=== PATIENT | male | born 1965 | race Caucasian/White ===

== ENCOUNTER 2016-11-07 14:42 | Emergency (ER) | payer OTHER ==
[~2016-11-07] VITALS: Ht 172.7 cm; Wt 55.3 kg
[~2016-11-07 14:42] MED LIST: ASPIRIN325 M2 PO; ASPIRIN325 MG PO; ATARAX25 MG PO; ATENOLOL25 MG PO; ATIVAN1 MG PO; COREG3.125 MG PO; COREG6.25 MG PO; FOLIC ACID1 MG PO; KENALOG0.51 TP; LACTULOSE10 GM/151 PO; LISINOPRIL40 MG PO; LOMOTIL 0.025 M1 TA1 PO; LOPRESSOR50 MG PO; LORAZEPAM0.5 MG PO; Lotrimin 1%15 GM T; MULTI-DAY VITA1 EACH PO; PYRIDOXINE HCL100 MG PO; THERA TABS1 TAB PO; THERA1 TAB PO; VITAMIN B-11 TAB PO; VITAMIN B-650 M1 PO; ZOFRAN ODT4 MG SL
[2016-11-07 15:19] LABS: BILIRUBIN 1+ (NEGATIVE); BLOOD NEGATIVE (NEGATIVE); CLARITY SL CLOUDY (CLEAR); COLOR YELLOW (YELLOW); GLUCOSE NEGATIVE (NEGATIVE); KETONE TRACE (NEGATIVE); LEUKO ESTERASE NEGATIVE (NEGATIVE); NITRITE NEGATIVE (NEGATIVE); PROTEIN 1+ (NEGATIVE); SPECIFIC GRAVITY >= 1.030 (1.005-1.030)
[2016-11-07 15:21] LABS: BASO % 0.1 % (0.0-1.0); HEMATOCRIT 37.1 % (42.0-52.0); HEMOGLOBIN 11.3 g/dl (14.0-18.0); IG # 0.1 10*3/uL (0.0-0.1); LYMPH % 5.2 % (27.0-41.0); MEAN CELL VOLUME 101.9 fl (80.0-94.0); MEAN CORPUSCULAR HGB CONC 30.5 g/dl (33.0-37.0); MEAN PLATELET VOLUME 10.2 fl (9.6-12.3); MONO % 5.1 % (3.0-9.0); NEUT % 89.3 % (47.0-73.0); PLATELET COUNT AUTOMATED 172 10*3/uL (130-400); RED BLOOD COUNT 3.64 10*6/uL (4.50-5.90); RED CELL DISTRI WIDTH 14.2 % (0-14.5)
[2016-11-07 15:30] LABS: PROTHROMBIN TIME 10.2 SECONDS (9.0-12.4)
[2016-11-07 15:44] LABS: BACTERIA 2+; HYALINE CAST 15-20; URINE REFLEX COMMENT YES (NO)
[2016-11-07 15:46] LABS: ALBUMIN 3.2 gm/dl (3.1-4.5); ALKALINE PHOSPHATASE 99 U/L (45-117); BILIRUBIN, DIRECT 0.2 mg/dL (0.0-0.2); BILIRUBIN, TOTAL 0.6 mg/dl (0.2-1.0); BUN 8 mg/dl (7-24); CARBON DIOXIDE 13 mmol/L (21-32); CHLORIDE 102 mmol/L (98-107); CPK 508 U/L (39-308); EST GLOM FILT AFRICAN AMERICAN 42 ml/min; GLUCOSE 147 mg/dL (65-99); POTASSIUM 4.4 mmol/L (3.5-5.1); SGOT/AST 121 IU/L (3-35); SGPT/ALT 54 U/L (12-78); SODIUM 145 mmol/L (136-145); TOTAL PROTEIN 6.9 gm/dL (6.4-8.2)
[2016-11-07 15:48] LABS: TROPONIN I < 0.015 ng/ml (<0.045)
[2016-11-07 17:18] LABS: LA>2 REFLEX 2 HR DRAW NOW
== END 2016-11-07 16:00 | disposition short-term general hospital (02) ==
LOC: ED 14:42
PROVIDERS: Emergency Medicine
DX: S72.001A Fracture of unspecified part of neck of right femur, initial encounter for closed fracture (principal); T79.6XXA Traumatic ischemia of muscle, initial encounter; F10.10 Alcohol abuse, uncomplicated; D64.9 Anemia, unspecified; E86.0 Dehydration; E87.2 Acidosis; R00.0 Tachycardia, unspecified; N17.9 Acute kidney failure, unspecified; F17.200 Nicotine dependence, unspecified, uncomplicated; I48.91 Unspecified atrial fibrillation; I10 Essential (primary) hypertension; J44.9 Chronic obstructive pulmonary disease, unspecified; Z79.82 Long term (current) use of aspirin; W18.30XA Fall on same level, unspecified, initial encounter; Y93.89 Activity, other specified; Y92.009 Unspecified place in unspecified non-institutional (private) residence as the place of occurrence of the external cause; Y99.9 Unspecified external cause status

== ENCOUNTER 2017-05-08 14:58 | Emergency (ER) | payer OTHER ==
[2017-05-08 15:23] LABS: BASO % 0.1 % (0.0-1.0); HEMATOCRIT 40.2 % (42.0-52.0); HEMOGLOBIN 13.5 g/dl (14.0-18.0); LYMPH # 1.1 10*3/uL (1.3-4.4); LYMPH % 13.9 % (27.0-41.0); MEAN CELL VOLUME 91.8 fl (80.0-94.0); MEAN CORPUSCULAR HGB 30.8 pg (27.0-31.0); MEAN CORPUSCULAR HGB CONC 33.6 g/dl (33.0-37.0); MEAN PLATELET VOLUME 10.4 fl (9.6-12.3); MONO # 0.5 10*3/uL (0.1-1.0); MONO % 6.7 % (3.0-9.0); NEUT # 6.1 10*3/uL (2.3-7.9); PLATELET COUNT AUTOMATED 153 10*3/uL (130-400); RED BLOOD COUNT 4.38 10*6/uL (4.50-5.90); RED CELL DISTRI WIDTH 13.2 % (0-14.5); WHITE BLOOD COUNT 7.7 10*3/uL (4.8-10.8)
[2017-05-08 15:43] LABS: ALBUMIN 3.4 gm/dl (3.1-4.5); ALKALINE PHOSPHATASE 123 U/L (45-117); BUN 6 mg/dl (7-24); CHLORIDE 101 mmol/L (98-107); CREATININE 0.69 mg/dL (0.70-1.30); LIPASE 165 U/L (73-393); POTASSIUM 3.7 mmol/L (3.5-5.1); SGOT/AST 45 IU/L (3-35); SGPT/ALT 33 U/L (12-78); SODIUM 138 mmol/L (136-145); TOTAL PROTEIN 7.3 gm/dL (6.4-8.2)
[2017-05-08 15:45] LABS: ETHYL ALCOHOL < 3.0 mg/dl (<3)
[2017-05-08] MEDS ORDERED: ZOFRAN4 MG PO (16:22)
== END 2017-05-08 16:40 | disposition home or self-care (01) ==
LOC: ED 14:58
PROVIDERS: Nurse Practitioner Family
DX: K52.9 Noninfective gastroenteritis and colitis, unspecified (principal); R03.0 Elevated blood-pressure reading, without diagnosis of hypertension

== ENCOUNTER → 2018-08-04 | Outpatient (CLI) | payer OTHER ==
[~2018-08-04] MED LIST changes: +ANAPROX DS550 MG PO; +ASPIRIN ADULT L81 M2 PO; +B-1100 M1 PO; +CARVEDILOL6.25 MG PO; +CEROVITE ADVAN1 EACH PO; +DULOXETINE HCL30 MG PO; +LORAZEPAM1 MG PO; +MULTIVITAMINS1 EAC6 PO; +NATURE'S BLEND100 M2 PO; +PHARMASSURE VI100 MG PO; +VITAMIN B150 MG PO; +VITAMIN D-32000 UNIT PO; +VITAMIN D5000 UNIT PO; +ZOFRAN4 MG PO
== END | disposition home or self-care (01) ==
DX: S82.142D Displaced bicondylar fracture of left tibia, subsequent encounter for closed fracture with routine healing (principal); X58.XXXD Exposure to other specified factors, subsequent encounter

== ENCOUNTER 2018-10-25 21:11 | Emergency (ER) | payer OTHER ==
[~2018-10-25] VITALS: Ht 172.7 cm; Wt 77.1 kg
[~2018-10-25 21:11] MED LIST changes: -ASPIRIN ADULT L81 M2 PO; -B-1100 M1 PO; -CARVEDILOL6.25 MG PO; -CEROVITE ADVAN1 EACH PO; -DULOXETINE HCL30 MG PO; -LORAZEPAM1 MG PO; -NATURE'S BLEND100 M2 PO; -VITAMIN D5000 UNIT PO
[2019-02-25] MEDS ORDERED: VITAMIN D5000 UNIT PO (19:36)
[2019-02-25] MEDS ORDERED: B-1100 M1 PO (19:36)
[2019-02-25] MEDS ORDERED: CARVEDILOL6.25 MG PO (19:36)
[2019-02-25] MEDS ORDERED: DULOXETINE HCL30 MG PO (19:37)
[2019-02-25] MEDS ORDERED: ASPIRIN ADULT L81 M2 PO (19:37)
[2019-02-25] MEDS ORDERED: CEROVITE ADVAN1 EACH PO (19:37)
[2019-02-25] MEDS ORDERED: NATURE'S BLEND100 M2 PO (19:38)
[2019-02-25] MEDS ORDERED: PHARMASSURE VI100 MG PO (19:41)
[2019-03-03] MEDS ORDERED: LORAZEPAM1 MG PO (11:20)
== END 2018-10-25 22:41 | disposition home or self-care (01) ==
LOC: ED 21:11
DX: S86.911A Strain of unspecified muscle(s) and tendon(s) at lower leg level, right leg, initial encounter (principal); F17.200 Nicotine dependence, unspecified, uncomplicated; Z79.899 Other long term (current) drug therapy; Z79.82 Long term (current) use of aspirin; X50.1XXA Overexertion from prolonged static or awkward postures, initial encounter; Y93.89 Activity, other specified; Y92.89 Other specified places as the place of occurrence of the external cause; Y99.8 Other external cause status

== ENCOUNTER 2019-02-03 22:08 | Emergency (ER) | payer MEDICAID ==
[~2019-02-03] VITALS: Wt 68.0 kg
[2019-02-03 22:50] LABS: BASO % 0.2 % (0.0-1.0); EOS # 0.1 10*3/uL (0.0-0.4); EOS % 1.1 % (1.0-4.0); HEMATOCRIT 38.3 % (42.0-52.0); LYMPH # 2.5 10*3/uL (1.3-4.4); LYMPH % 43.4 % (27.0-41.0); MEAN CELL VOLUME 96.5 fl (80.0-94.0); MEAN CORPUSCULAR HGB 32.7 pg (27.0-31.0); MEAN CORPUSCULAR HGB CONC 33.9 g/dl (33.0-37.0); MEAN PLATELET VOLUME 10.3 fl (9.6-12.3); MONO # 0.7 10*3/uL (0.1-1.0); MONO % 12.9 % (3.0-9.0); NEUT # 2.4 10*3/uL (2.3-7.9); NEUT % 42.2 % (47.0-73.0); PLATELET COUNT AUTOMATED 116 10*3/uL (130-400); RED BLOOD COUNT 3.97 10*6/uL (4.50-5.90); RED CELL DISTRI WIDTH 13.6 % (0-14.5); WHITE BLOOD COUNT 5.7 10*3/uL (4.8-10.8)
[2019-02-03 23:07] LABS: ALKALINE PHOSPHATASE 89 U/L (45-117); BUN 2 mg/dl (7-24); CHLORIDE 106 mmol/L (98-107); POTASSIUM 3.5 mmol/L (3.5-5.1); SGOT/AST 124 IU/L (3-35); SGPT/ALT 58 U/L (12-78); SODIUM 140 mmol/L (136-145); TOTAL PROTEIN 6.4 gm/dL (6.4-8.2)
[2019-02-25] MEDS ORDERED: CARVEDILOL6.25 MG PO (19:36)
[2019-02-25] MEDS ORDERED: VITAMIN D5000 UNIT PO (19:36)
[2019-02-25] MEDS ORDERED: B-1100 M1 PO (19:36)
[2019-02-25] MEDS ORDERED: CEROVITE ADVAN1 EACH PO (19:37)
[2019-02-25] MEDS ORDERED: DULOXETINE HCL30 MG PO (19:37)
[2019-02-25] MEDS ORDERED: ASPIRIN ADULT L81 M2 PO (19:37)
[2019-02-25] MEDS ORDERED: NATURE'S BLEND100 M2 PO (19:38)
[2019-02-25] MEDS ORDERED: PHARMASSURE VI100 MG PO (19:41)
[2019-03-03] MEDS ORDERED: LORAZEPAM1 MG PO (11:20)
== END 2019-02-04 | disposition home or self-care (01) ==
LOC: ED 22:08
PROVIDERS: Student in an Organized Health Care Education/Training Program
DX: R41.3 Other amnesia (principal); I48.91 Unspecified atrial fibrillation; J44.9 Chronic obstructive pulmonary disease, unspecified; I10 Essential (primary) hypertension; E78.1 Pure hyperglyceridemia; F17.200 Nicotine dependence, unspecified, uncomplicated; Z79.82 Long term (current) use of aspirin; Z79.899 Other long term (current) drug therapy

== ENCOUNTER 2019-04-10 12:22 | Inpatient (IN) | payer MEDICAID ==
[~2019-04-10] VITALS: Ht 177.8 cm; Wt 55.8 kg
[~2019-04-10 12:22] MED LIST changes: +ASPIRIN ADULT L81 M2 PO; +B-1100 M1 PO; +CARVEDILOL6.25 MG PO; +CEROVITE ADVAN1 EACH PO; +DULOXETINE HCL30 MG PO; +LORAZEPAM1 MG PO; +NATURE'S BLEND100 M2 PO; +VITAMIN D5000 UNIT PO
[2019-04-10 12:23] VITALS: BP 143/91
[2019-04-10 13:02] LABS: BASO % 0.2 % (0.0-1.0); EOS # 0.1 10*3/uL (0.0-0.4); EOS % 0.8 % (1.0-4.0); HEMATOCRIT 43.5 % (42.0-52.0); HEMOGLOBIN 14.7 g/dl (14.0-18.0); LYMPH # 1.3 10*3/uL (1.3-4.4); LYMPH % 19.4 % (27.0-41.0); MEAN CELL VOLUME 93.8 fl (80.0-94.0); MEAN CORPUSCULAR HGB 31.7 pg (27.0-31.0); MEAN CORPUSCULAR HGB CONC 33.8 g/dl (33.0-37.0); MEAN PLATELET VOLUME 11.7 fl (9.6-12.3); MONO # 0.7 10*3/uL (0.1-1.0); MONO % 11.3 % (3.0-9.0); NEUT # 4.4 10*3/uL (2.3-7.9); PLATELET COUNT AUTOMATED 96 10*3/uL (130-400); RED BLOOD COUNT 4.64 10*6/uL (4.50-5.90); RED CELL DISTRI WIDTH 13.4 % (0-14.5); WHITE BLOOD COUNT 6.5 10*3/uL (4.8-10.8)
[2019-04-10 13:18] LABS: ALBUMIN 3.3 gm/dl (3.1-4.5); ALKALINE PHOSPHATASE 96 U/L (45-117); BUN 2 mg/dl (7-24); CHLORIDE 93 mmol/L (98-107); CREATININE 0.58 mg/dL (0.70-1.30); POTASSIUM 2.7 mmol/L (3.5-5.1); SGOT/AST 507 IU/L (3-35); SODIUM 134 mmol/L (136-145); TOTAL PROTEIN 7.2 gm/dL (6.4-8.2)
[2019-04-10 13:21] LABS: SGPT/ALT 324 U/L (12-78)
[2019-04-10 13:23] LABS: TROPONIN I < 0.015 ng/ml (<0.045)
[2019-04-10 14:05] LABS: BILIRUBIN NEGATIVE (NEGATIVE); BLOOD NEGATIVE (NEGATIVE); CLARITY CLEAR (CLEAR); COLOR YELLOW (YELLOW); GLUCOSE NEGATIVE (NEGATIVE); KETONE NEGATIVE (NEGATIVE); LEUKO ESTERASE TRACE (NEGATIVE); NITRITE NEGATIVE (NEGATIVE); SPECIFIC GRAVITY <= 1.005 (1.005-1.030); UROBILINOGEN 0.2 E.U./dl (0.2-1.0)
[2019-04-10 14:13] LABS: BACTERIA TRACE; EPITHELIAL CELLS 0-2; RBC 0-2 rbc/hpf (0-2)
[2019-04-10 14:39] LABS: URINE AMPHETAMINES < 1000 (1000ng/ml); URINE BARBITURATES < 200 (200ng/ml); URINE BENZODIAZEPINES < 200 (200ng/ml); URINE CANNABINOIDS (THC) < 50 (50ng/ml); URINE COCAINE < 300 (300ng/ml); URINE METHADONE < 300 (300ng/ml); URINE OPIATES < 300 (300ng/ml)
[2019-04-10 14:40] LABS: URINE PHENCYCLIDINE < 25 (25ng/ml)
[2019-04-10 14:49] LABS: ACT PARTIAL THROMBO TIME 23.5 SECONDS (20.0-32.1); INTERNATIONAL NORM RATIO 0.9 (2.0-3.5)
[2019-04-10 20:00] VITALS: BP 120/68
[2019-04-11 00:41] VITALS: BP 127/64
[2019-04-11 06:23] LABS: BASO % 0.4 % (0.0-1.0); EOS # 0.1 10*3/uL (0.0-0.4); EOS % 1.8 % (1.0-4.0); HEMATOCRIT 35.3 % (42.0-52.0); HEMOGLOBIN 11.5 g/dl (14.0-18.0); LYMPH # 1.4 10*3/uL (1.3-4.4); LYMPH % 26.2 % (27.0-41.0); MEAN CORPUSCULAR HGB 31.9 pg (27.0-31.0); MEAN CORPUSCULAR HGB CONC 32.6 g/dl (33.0-37.0); MEAN PLATELET VOLUME 11.9 fl (9.6-12.3); MONO # 0.9 10*3/uL (0.1-1.0); MONO % 15.6 % (3.0-9.0); NEUT # 3.1 10*3/uL (2.3-7.9); NEUT % 55.6 % (47.0-73.0); PLATELET COUNT AUTOMATED 79 10*3/uL (130-400); RED CELL DISTRI WIDTH 13.8 % (0-14.5); WHITE BLOOD COUNT 5.5 10*3/uL (4.8-10.8)
[2019-04-11 06:32] LABS: ALBUMIN 2.5 gm/dl (3.1-4.5); ALKALINE PHOSPHATASE 74 U/L (45-117); BUN 3 mg/dl (7-24); CHLORIDE 106 mmol/L (98-107); POTASSIUM 2.9 mmol/L (3.5-5.1); SGOT/AST 254 IU/L (3-35); SGPT/ALT 215 U/L (12-78); SODIUM 138 mmol/L (136-145); TOTAL PROTEIN 5.5 gm/dL (6.4-8.2)
[2019-04-11 06:41] LABS: MEAN CELL VOLUME 98.1 fl (80.0-94.0)
[2019-04-11 08:00] VITALS: BP 130/72
[2019-04-11 09:08] LABS: HEPATITIS B SURFACE AG Negative (Negative); HEPATITIS C VIRUS ANTIBODY <0.1 s/co (0.0-0.9)
[2019-04-11] MEDS ORDERED: K-TAB20 MEQ PO (09:19)
[2019-04-11 12:00] VITALS: BP 128/60
== END 2019-04-11 12:30 | disposition home or self-care (01) | DRG 433 ==
LOC: ED 12:22 → 5E 14:06 → EDHOLD 14:06 → 5E 14:29
PROVIDERS: Emergency Medicine; Family Medicine; ADMIT Family Medicine
DX: K70.10 Alcoholic hepatitis without ascites (principal); E87.1 Hypo-osmolality and hyponatremia; E87.6 Hypokalemia; E83.41 Hypermagnesemia; E86.0 Dehydration; I15.2 Hypertension secondary to endocrine disorders; I48.91 Unspecified atrial fibrillation; J44.9 Chronic obstructive pulmonary disease, unspecified; E78.1 Pure hyperglyceridemia; N20.0 Calculus of kidney; F10.10 Alcohol abuse, uncomplicated; R73.9 Hyperglycemia, unspecified; F17.210 Nicotine dependence, cigarettes, uncomplicated; K76.0 Fatty (change of) liver, not elsewhere classified; D69.6 Thrombocytopenia, unspecified; F41.9 Anxiety disorder, unspecified; Z71.6 Tobacco abuse counseling; Z82.0 Family history of epilepsy and other diseases of the nervous system; Z82.49 Family history of ischemic heart disease and other diseases of the circulatory system; Z79.82 Long term (current) use of aspirin; Z79.899 Other long term (current) drug therapy

== ENCOUNTER 2019-05-22 20:24 | Inpatient (IN) | payer OTHER ==
[~2019-05-22] VITALS: Ht 177.8 cm; Wt 53.6 kg
[~2019-05-22 20:24] MED LIST changes: +K-TAB20 MEQ PO
[2019-05-22 20:26] VITALS: BP 141/95
[2019-05-22 21:15] LABS: BASO % 0.4 % (0.0-1.0); EOS # 0.1 10*3/uL (0.0-0.4); EOS % 2.3 % (1.0-4.0); HEMATOCRIT 42.3 % (42.0-52.0); HEMOGLOBIN 14.1 g/dl (14.0-18.0); LYMPH # 0.6 10*3/uL (1.3-4.4); LYMPH % 12.3 % (27.0-41.0); MEAN CELL VOLUME 95.3 fl (80.0-94.0); MEAN CORPUSCULAR HGB 31.8 pg (27.0-31.0); MEAN CORPUSCULAR HGB CONC 33.3 g/dl (33.0-37.0); MEAN PLATELET VOLUME 10.8 fl (9.6-12.3); MONO # 0.5 10*3/uL (0.1-1.0); MONO % 10.3 % (3.0-9.0); NEUT # 3.6 10*3/uL (2.3-7.9); NEUT % 74.5 % (47.0-73.0); PLATELET COUNT AUTOMATED 67 10*3/uL (130-400); RED BLOOD COUNT 4.44 10*6/uL (4.50-5.90); RED CELL DISTRI WIDTH 14.3 % (0-14.5); WHITE BLOOD COUNT 4.9 10*3/uL (4.8-10.8)
[2019-05-22 21:25] LABS: INTERNATIONAL NORM RATIO 0.9 (2.0-3.5)
[2019-05-22 21:29] LABS: ALBUMIN 3.1 gm/dl (3.1-4.5); ALKALINE PHOSPHATASE 98 U/L (45-117); BUN 3 mg/dl (7-24); CHLORIDE 100 mmol/L (98-107); CREATININE 0.63 mg/dL (0.70-1.30); LIPASE 159 U/L (73-393); POTASSIUM 3.4 mmol/L (3.5-5.1); SGOT/AST 234 IU/L (3-35); SGPT/ALT 89 U/L (12-78); SODIUM 138 mmol/L (136-145); TOTAL PROTEIN 6.8 gm/dL (6.4-8.2)
[2019-05-22 21:31] LABS: TROPONIN I < 0.015 ng/ml (<0.045)
[2019-05-22 23:51] LABS: BILIRUBIN NEGATIVE (NEGATIVE); BLOOD NEGATIVE (NEGATIVE); CLARITY CLEAR (CLEAR); COLOR YELLOW (YELLOW); GLUCOSE NEGATIVE (NEGATIVE); KETONE 2+ (NEGATIVE); LEUKO ESTERASE NEGATIVE (NEGATIVE); NITRITE NEGATIVE (NEGATIVE); PH 8.5 (5.0-9.0)
[2019-05-22 23:58] LABS: RBC 0-2 rbc/hpf (0-2); WBC 0-2 wbc/hpf (0-5)
[2019-05-23 00:02] VITALS: BP 132/70
[2019-05-23 00:45] VITALS: BP 162/80
[2019-05-23 08:00] VITALS: BP 130/70
[2019-05-23] MEDS ORDERED: SM NATURAL BAL100 MG PO (10:15)
[2019-05-23 12:00] VITALS: BP 127/70
[2019-05-23 16:00] VITALS: BP 121/68
[2019-05-23 20:00] VITALS: BP 132/70
[2019-05-24] VITALS: BP 138/75
[2019-05-24 06:11] LABS: ALBUMIN 2.5 gm/dl (3.1-4.5); ALKALINE PHOSPHATASE 73 U/L (45-117); BUN 2 mg/dl (7-24); CHLORIDE 104 mmol/L (98-107); CREATININE 0.53 mg/dL (0.70-1.30); POTASSIUM 2.9 mmol/L (3.5-5.1); SGOT/AST 107 IU/L (3-35); SGPT/ALT 58 U/L (12-78); SODIUM 136 mmol/L (136-145); TOTAL PROTEIN 5.5 gm/dL (6.4-8.2)
[2019-05-24 06:29] LABS: BASO % 0.2 % (0.0-1.0); EOS # 0.1 10*3/uL (0.0-0.4); EOS % 1.1 % (1.0-4.0); HEMATOCRIT 38.3 % (42.0-52.0); HEMOGLOBIN 12.6 g/dl (14.0-18.0); LYMPH # 1.5 10*3/uL (1.3-4.4); LYMPH % 26.4 % (27.0-41.0); MEAN CELL VOLUME 97.2 fl (80.0-94.0); MEAN CORPUSCULAR HGB CONC 32.9 g/dl (33.0-37.0); MEAN PLATELET VOLUME 12.6 fl (9.6-12.3); MONO # 0.7 10*3/uL (0.1-1.0); MONO % 11.6 % (3.0-9.0); NEUT # 3.4 10*3/uL (2.3-7.9); NEUT % 60.5 % (47.0-73.0); PLATELET COUNT AUTOMATED 56 10*3/uL (130-400); RED BLOOD COUNT 3.94 10*6/uL (4.50-5.90); RED CELL DISTRI WIDTH 14.2 % (0-14.5); WHITE BLOOD COUNT 5.6 10*3/uL (4.8-10.8)
[2019-05-24 07:59] VITALS: BP 116/70
[2019-05-24 08:00] VITALS: BP 128/78
[2019-05-24 16:00] VITALS: BP 129/84
[2019-05-24 20:00] VITALS: BP 118/85
[2019-05-25] VITALS: BP 119/67
[2019-05-25 08:00] VITALS: BP 128/72; BP 130/78
[2019-05-25 08:23] LABS: ALBUMIN 2.5 gm/dl (3.1-4.5); CHLORIDE 104 mmol/L (98-107); POTASSIUM 3.1 mmol/L (3.5-5.1); SODIUM 136 mmol/L (136-145)
[2019-05-25 08:27] LABS: ALKALINE PHOSPHATASE 80 U/L (45-117); CREATININE 0.44 mg/dL (0.70-1.30); PHOSPHOROUS 2.8 mg/dL (2.5-4.9); SGOT/AST 90 IU/L (3-35); SGPT/ALT 59 U/L (12-78); TOTAL PROTEIN 5.7 gm/dL (6.4-8.2)
[2019-05-25 08:30] LABS: BUN < 1 mg/dl (7-24)
[2019-05-25] MEDS ORDERED: CIPRO500 MG PO (11:29)
[2019-05-25] MEDS ORDERED: FLAGYL500 MG PO (11:29)
== END 2019-05-25 12:10 | disposition home health service (06) | DRG 720 ==
LOC: ED 20:24 → 4E 23:53 → EDHOLD 23:53 → 4E 05-23 00:03
PROVIDERS: Internal Medicine; Physician Assistant; Student in an Organized Health Care Education/Training Program; ADMIT Internal Medicine
DX: A41.9 Sepsis, unspecified organism (principal); F17.210 Nicotine dependence, cigarettes, uncomplicated; R00.0 Tachycardia, unspecified; D75.89 Other specified diseases of blood and blood-forming organs; E87.6 Hypokalemia; K52.9 Noninfective gastroenteritis and colitis, unspecified; E44.0 Moderate protein-calorie malnutrition; N30.90 Cystitis, unspecified without hematuria; J41.0 Simple chronic bronchitis; R65.20 Severe sepsis without septic shock; Z60.2 Problems related to living alone; E87.2 Acidosis; F41.9 Anxiety disorder, unspecified; I10 Essential (primary) hypertension; K76.0 Fatty (change of) liver, not elsewhere classified; K44.9 Diaphragmatic hernia without obstruction or gangrene; N20.0 Calculus of kidney; R63.0 Anorexia; F10.230 Alcohol dependence with withdrawal, uncomplicated; I48.0 Paroxysmal atrial fibrillation; E55.9 Vitamin D deficiency, unspecified; R74.0 Nonspecific elevation of levels of transaminase and lactic acid dehydrogenase [LDH]; D69.6 Thrombocytopenia, unspecified; K76.9 Liver disease, unspecified; Z79.899 Other long term (current) drug therapy; Z82.49 Family history of ischemic heart disease and other diseases of the circulatory system; Z82.0 Family history of epilepsy and other diseases of the nervous system; Z71.6 Tobacco abuse counseling; Z68.1 Body mass index [BMI] 19.9 or less, adult

== ENCOUNTER 2019-08-04 19:05 | Emergency (ER) | payer OTHER ==
[~2019-08-04] VITALS: Ht 177.8 cm; Wt 54.4 kg
[~2019-08-04 19:05] MED LIST changes: +CIPRO500 MG PO; +FLAGYL500 MG PO; +SM NATURAL BAL100 MG PO
== END 2019-08-04 19:53 | disposition left against medical advice (07) ==
LOC: ED 19:05
DX: R26.2 Difficulty in walking, not elsewhere classified (principal); R05 Cough; R09.81 Nasal congestion; Z53.21 Procedure and treatment not carried out due to patient leaving prior to being seen by health care provider

== ENCOUNTER 2019-09-03 15:41 | Inpatient (IN) | payer OTHER ==
[~2019-09-03] VITALS: Ht 177.8 cm; Wt 54.5 kg
[2019-09-03 15:41] VITALS: BP 142/90
[2019-09-03 16:36] LABS: BASO % 0.4 % (0.0-1.0); EOS # 0.1 10*3/uL (0.0-0.4); EOS % 1.2 % (1.0-4.0); HEMATOCRIT 41.7 % (42.0-52.0); HEMOGLOBIN 13.9 g/dl (14.0-18.0); LYMPH # 1.8 10*3/uL (1.3-4.4); LYMPH % 35.6 % (27.0-41.0); MEAN CELL VOLUME 96.5 fl (80.0-94.0); MEAN CORPUSCULAR HGB 32.2 pg (27.0-31.0); MEAN CORPUSCULAR HGB CONC 33.3 g/dl (33.0-37.0); MEAN PLATELET VOLUME 10.8 fl (9.6-12.3); MONO # 0.7 10*3/uL (0.1-1.0); MONO % 13.7 % (3.0-9.0); NEUT # 2.5 10*3/uL (2.3-7.9); NEUT % 48.9 % (47.0-73.0); PLATELET COUNT AUTOMATED 79 10*3/uL (130-400); RED BLOOD COUNT 4.32 10*6/uL (4.50-5.90); WHITE BLOOD COUNT 5.2 10*3/uL (4.8-10.8)
[2019-09-03 16:44] LABS: ACT PARTIAL THROMBO TIME 26.8 SECONDS (20.0-32.1); INTERNATIONAL NORM RATIO 0.9 (2.0-3.5)
[2019-09-03 16:50] LABS: ALBUMIN 2.9 gm/dl (3.1-4.5); ALKALINE PHOSPHATASE 127 U/L (45-117); BUN 2 mg/dl (7-24); CHLORIDE 105 mmol/L (98-107); CREATININE 0.56 mg/dL (0.70-1.30); LIPASE 474 U/L (73-393); POTASSIUM 3.3 mmol/L (3.5-5.1); SGOT/AST 272 IU/L (3-35); SGPT/ALT 92 U/L (12-78); SODIUM 138 mmol/L (136-145); TOTAL PROTEIN 6.5 gm/dL (6.4-8.2)
[2019-09-03 16:53] LABS: TROPONIN I < 0.015 ng/ml (<0.045)
[2019-09-03 17:38] LABS: BILIRUBIN NEGATIVE (NEGATIVE); BLOOD NEGATIVE (NEGATIVE); CLARITY CLEAR (CLEAR); COLOR STRAW (YELLOW); GLUCOSE NEGATIVE (NEGATIVE); KETONE NEGATIVE (NEGATIVE); LEUKO ESTERASE NEGATIVE (NEGATIVE); NITRITE NEGATIVE (NEGATIVE); PH 6.5 (5.0-9.0); UROBILINOGEN 0.2 E.U./dl (0.2-1.0)
[2019-09-03 17:39] LABS: EPITHELIAL CELLS 0-2; WBC 0-2 wbc/hpf (0-5)
[2019-09-03 18:58] VITALS: BP 145/75
--- NOTE | 2019-09-03 18:58 | NUR ---
A 54, admitted to , under the services of RYNE Munroe DO with a diagnosis of ALCOHOL WITHDRAWAL,UNABLE TO AMBULATE,HYPOKALEMIA. Chief complaint is WEAKNESS. Patient arrived via stretcher from ER. Monitor applied. Initial assessment completed. Vital signs taken and recorded. RYNE MUNROE DO notified of admission to the unit. Orders received. See assessment for past medical history, medications and allergies. Patient and/or family oriented to unit. [facility]. Clothing/patient valuable form completed. LUIS HOOVER
--- NOTE | 2019-09-03 19:00 | NUR ---
A 54, admitted to 4E, under the services of RYNE Munroe DO with a diagnosis of ALCOHOL WITHDRAWAL. Chief complaint is WEAKNESS Patient arrived via wheel chair from ER. Monitor applied. Initial assessment completed. Vital signs taken and recorded. RYNE MUNROE DO notified of admission to the unit. Orders received. See assessment for past medical history, medications and allergies. Patient and/or family oriented to unit. [facility] visitation policy reviewed. Clothing/patient valuable form completed. MAUREEN VIDAL
[2019-09-03] MEDS ORDERED: COREG6.25 MG PO (19:05)
[2019-09-03] MEDS ORDERED: POTASSIUM CHLO20 ME3 PO (19:06)
[2019-09-03 19:20] VITALS: BP 145/75
--- NOTE | 2019-09-03 19:31 | NUR ---
DR JULES CALLED, HOME MEDICATION LIST UP TO DATE, BUT PATIENT STATES THAT HE IS UNSURE OF THE LAST TIME HE TOOK THEM. ALSO MADE AWARE OF LACTIC ACID OF 3.3. NEW ORDERS RECEIVED- SEE EMAR.
[2019-09-04] VITALS: BP 145/71
--- NOTE | 2019-09-04 00:41 | NUR ---
PATIENT RESTING WITH EYES CLOSED. RESPIRATIONS EASY AND UNLABORED. BED ALARM ON AND CALL LIGHT IN REACH. WILL MONITOR.
--- NOTE | 2019-09-04 02:15 | NUR ---
PATIENT LAYING IN BED WATCHING TV. NO TREMORS NOTED. PATIENT HAS NO COMPLAINTS AT THIS TIME. BED ALARM ON AND CALL LIGHT IN REACH. WILL MONITOR.
--- NOTE | 2019-09-04 03:34 | NUR ---
PATIENT AWAKE AND WATCHING TV. NO TREMORS NOTED. PATIENT HAS NO COMPLAINTS AT THIS TIME. BED ALARM ON AND CALL LIGHT IN REACH. WILL MONITOR.
[2019-09-04 06:19] LABS: BASO % 0.5 % (0.0-1.0); EOS # 0.1 10*3/uL (0.0-0.4); EOS % 1.2 % (1.0-4.0); HEMATOCRIT 37.9 % (42.0-52.0); HEMOGLOBIN 12.8 g/dl (14.0-18.0); LYMPH # 1.5 10*3/uL (1.3-4.4); MEAN CELL VOLUME 96.7 fl (80.0-94.0); MEAN CORPUSCULAR HGB 32.7 pg (27.0-31.0); MEAN CORPUSCULAR HGB CONC 33.8 g/dl (33.0-37.0); MEAN PLATELET VOLUME 10.6 fl (9.6-12.3); MONO # 0.6 10*3/uL (0.1-1.0); MONO % 13.3 % (3.0-9.0); NEUT % 48.8 % (47.0-73.0); PLATELET COUNT AUTOMATED 75 10*3/uL (130-400); RED BLOOD COUNT 3.92 10*6/uL (4.50-5.90); RED CELL DISTRI WIDTH 13.1 % (0-14.5); WHITE BLOOD COUNT 4.1 10*3/uL (4.8-10.8)
[2019-09-04 06:36] LABS: ALBUMIN 2.6 gm/dl (3.1-4.5); BUN 2 mg/dl (7-24); CHLORIDE 107 mmol/L (98-107); POTASSIUM 3.8 mmol/L (3.5-5.1); SODIUM 138 mmol/L (136-145)
[2019-09-04 06:43] LABS: ALKALINE PHOSPHATASE 105 U/L (45-117); CHOLESTEROL 158 mg/dL (<200); CREATININE 0.44 mg/dL (0.70-1.30); HDL CHOLESTEROL 118 mg/dl (40-60); LDL CHOLESTEROL 29 mg/dL (9-159); PHOSPHOROUS 2.5 mg/dL (2.5-4.9); SGOT/AST 244 IU/L (3-35); SGPT/ALT 76 U/L (12-78); TOTAL PROTEIN 5.8 gm/dL (6.4-8.2); TRIGLYCERIDES 55 mg/dl (<150); VLDL CHOLESTEROL 11 mg/dL (6-40)
[2019-09-04 08:00] VITALS: BP 143/79
[2019-09-04 08:12] LABS: VITAMIN D, 25-HYDROXY 59.5 ng/mL (30-100)
--- NOTE | 2019-09-04 08:26 | NUR ---
PHYSICAL THERAPY Screen received pt admit from home with weakness and ETOH withdrawl, could benefit from PT pending medical status and progress, thank you. Jessica Singleton PT
--- NOTE | 2019-09-04 08:35 | NUR ---
PT MEDICATED WITH ZOFRAN FOR N/V, AND ATIVAN FOR ANXIETY, TREMORS WILL MONITOR
--- NOTE | 2019-09-04 09:00 | NUR ---
Accreditation Manager in to talk to patient. Patient states lives at home with alone. There are no steps in the home. Physician: [facility]acy[facility] Home health services: none Patient's level of ADLs: INDEPENDENT Patient has working utilities: all working DME: none Follow-up physician's appointment after d/c: will be made by hospitalist nurse director upon discharge Does patient want to access PORTAL?: no Discharge plan discussed with patient, he states he lives at home alone, is independent in adls and ambulation, stated he would return home when medically stable and denies any home needs, case management will follow. NAHEED MONROY
[2019-09-04 12:00] VITALS: BP 140/67
--- NOTE | 2019-09-04 12:00 | NUR ---
PT RESTING IN BED. EYES CLOSED. ZOFRAN AND ATIVAN APPEAR EFFECTIVE. WILL MONITOR
--- NOTE | 2019-09-04 13:30 | NUR ---
PHYSICAL THERAPY Nakita completed moderate level of complexity 06658 recomend SNF at discharge full report to follow. PT to work on tranfers,amb, strengthening balance and safety. Jessica Singleton PT
[2019-09-04 16:00] VITALS: BP 143/80
--- NOTE | 2019-09-04 16:36 | NUR ---
DR PORTILLO NOTIFIED OF POSITIVE BC
[2019-09-04 20:00] VITALS: BP 150/78; BP 154/90
[2019-09-05] VITALS: BP 120/82
--- NOTE | 2019-09-05 00:10 | NUR ---
PATIENT C/O NAUSEA AND HAS VISUAL TREMORS AND C/O ANXIETY. ZOFRAN AND IV ATIVAN ADMINISTERED PRESCRIBED. WILL MONITOR FOR EFFECTIVENESSS.
--- NOTE | 2019-09-05 01:10 | NUR ---
PATIENT RESTING WITH EYES CLOSED. RESPIRATIONS EASY AND UNLABORED. BED ALARM ON AND CALL LIGHT IN REACH. WILL MONITOR.
[2019-09-05 06:05] LABS: BASO % 0.2 % (0.0-1.0); EOS # 0.1 10*3/uL (0.0-0.4); EOS % 1.1 % (1.0-4.0); HEMATOCRIT 36.3 % (42.0-52.0); HEMOGLOBIN 11.9 g/dl (14.0-18.0); LYMPH # 1.3 10*3/uL (1.3-4.4); LYMPH % 28.8 % (27.0-41.0); MEAN CELL VOLUME 97.3 fl (80.0-94.0); MEAN CORPUSCULAR HGB 31.9 pg (27.0-31.0); MEAN CORPUSCULAR HGB CONC 32.8 g/dl (33.0-37.0); MEAN PLATELET VOLUME 11.2 fl (9.6-12.3); MONO # 0.6 10*3/uL (0.1-1.0); MONO % 12.9 % (3.0-9.0); NEUT # 2.6 10*3/uL (2.3-7.9); NEUT % 56.8 % (47.0-73.0); PLATELET COUNT AUTOMATED 66 10*3/uL (130-400); RED BLOOD COUNT 3.73 10*6/uL (4.50-5.90); RED CELL DISTRI WIDTH 12.7 % (0-14.5); WHITE BLOOD COUNT 4.7 10*3/uL (4.8-10.8)
[2019-09-05 06:23] LABS: ALBUMIN 2.3 gm/dl (3.1-4.5); CHLORIDE 109 mmol/L (98-107); CREATININE 0.43 mg/dL (0.70-1.30); POTASSIUM 3.2 mmol/L (3.5-5.1); SGOT/AST 120 IU/L (3-35); SGPT/ALT 58 U/L (12-78); SODIUM 140 mmol/L (136-145)
[2019-09-05 06:28] LABS: ALKALINE PHOSPHATASE 96 U/L (45-117); TOTAL PROTEIN 5.3 gm/dL (6.4-8.2)
[2019-09-05 06:35] LABS: BUN < 1 mg/dl (7-24)
--- NOTE | 2019-09-05 08:30 | NUR ---
case management visits with patient, discussed with him a discharge plan including a short term usp for 5 days of rehab prior to returning home, he was in agreement with this and stated he had been to [facility] in the past asked for a second choice in case [facility] was unable to accept him, he stated Zuleyma Humphrey, project planner will send referral to both facilities for acceptance and precert will be initiated with accepting facility
--- NOTE | 2019-09-05 11:19 | NUR ---
PHYSICAL THERAPY Patient was supine in bed this am when approached for therapy visit and reports not feeling well. Patient unable to be more specific regarding as to why he was not feeling well. Patient stated he just wanted to stay in bed and became a little agitated when obtaining informed consent for therapy treatment. Patient agreed to be approached this pm as tolerated for therapy visit. Patient remained in bed with bed alarm activated for safety. Devendra Garibay, AUTOMATIC MACHINE ATTENDANT
[2019-09-05 12:00] VITALS: BP 147/80
--- NOTE | 2019-09-05 13:30 | NUR ---
Occupational therapy orders received and chart reviewed. Patient was supine in bed upon OT arrival. Patient was lethargic and required verbal cues to arouse. Patient refusing an OT evaluation at this time stating "I'm too tired," and "I already told the other therapist no." Patient educated on the benefits of OT and continued to refuse. Will attempt at a later date for an OT evaluation. Thank you. Rsosi Harris, OTR/L
--- NOTE | 2019-09-05 14:17 | NUR ---
PHYSICAL THERAPY Patient was supine in bed when approached for pm therapy attempt and flat out declined therapist request. Patient stated he did not feel like doing therapy this date and remained in bed with call light and bed alarm activated. Will continue per POC as able. Devendra Garibay, MACHINING AND ASSEMBLY SUPERVISOR
[2019-09-05 16:00] VITALS: BP 126/80
[2019-09-05 20:00] VITALS: BP 148/68
[2019-09-06] VITALS: BP 122/60
[2019-09-06 06:50] LABS: CHLORIDE 111 mmol/L (98-107); CREATININE 0.44 mg/dL (0.70-1.30); POTASSIUM 3.1 mmol/L (3.5-5.1); SODIUM 141 mmol/L (136-145)
[2019-09-06 06:51] LABS: BUN < 1 mg/dl (7-24)
--- NOTE | 2019-09-06 06:52 | NUR ---
DR. NIETO NOTIFIED BLOOD CULTURES ON 09/03 ARE COMING BACK [facility] E[facility].
[2019-09-06 06:53] LABS: BASO % 0.5 % (0.0-1.0); EOS # 0.1 10*3/uL (0.0-0.4); EOS % 1.7 % (1.0-4.0); HEMATOCRIT 38.6 % (42.0-52.0); HEMOGLOBIN 12.5 g/dl (14.0-18.0); LYMPH # 1.5 10*3/uL (1.3-4.4); LYMPH % 36.8 % (27.0-41.0); MEAN CELL VOLUME 99.5 fl (80.0-94.0); MEAN CORPUSCULAR HGB 32.2 pg (27.0-31.0); MEAN CORPUSCULAR HGB CONC 32.4 g/dl (33.0-37.0); MEAN PLATELET VOLUME 12.2 fl (9.6-12.3); MONO # 0.5 10*3/uL (0.1-1.0); MONO % 12.7 % (3.0-9.0); NEUT # 1.9 10*3/uL (2.3-7.9); NEUT % 48.1 % (47.0-73.0); PLATELET COUNT AUTOMATED 64 10*3/uL (130-400); RED BLOOD COUNT 3.88 10*6/uL (4.50-5.90); RED CELL DISTRI WIDTH 12.7 % (0-14.5)
[2019-09-06 08:00] VITALS: BP 143/79
--- NOTE | 2019-09-06 08:28 | NUR ---
Referrals faxed to [facility] and [facility] Humph[facility]. [facility] stating they are unable to accept this patient at this time. unable to meet his needs. [facility] humphrey is reviewing. Waiting on review.
--- NOTE | 2019-09-06 10:00 | NUR ---
MEDICATED WITH ATIVAN 1MG IV FOR RESTLESSNESS AND AGITATION. WANTING TO LEAVE WITH PERIODS OF CONFUSION
--- NOTE | 2019-09-06 10:45 | NUR ---
PHYSICAL THERAPY Patient seen this am 1:1 for therapy visit and was resting supine in bed upon therapist arrival. Patient identified by name / and repeatedly voiced that he wanted to leave to have a cigerette. Patient need multiple v/c's to focus on task and easily becomes agitated, requiring brief bouts of rest to redirect patient. Patient transfers supine to sit EOB with MOD A, tolerating a minute or so static EOB sit to collect himself. Patient also presented with continuous IV treatment, transfering sit to stand Min A x 2, then ambulated with use of wh walker, MIN A, 20'x 2 to bathroom and back, demonstrating very unsteady gait pattern, decreased uneven stride and POOR walker safety / navigation. Patient returned to supine in bed and remained with call light, tray table, telephone and bed alarm. Will continue per POC as tolerated, total treatment time 16 minutes. Devendra Garibay, OIL PROCESS STILLMAN
--- NOTE | 2019-09-06 11:00 | NUR ---
Occupational therapy orders received and OT evaluation completed in full on floor five. Patient precautions include fall risk, ww use, bed alarm, R UE IV line, generalized weakness, and A&Ox2. Per OT eval, OT recommends SNF. If refused, home with SN, OT, and PT with / supervision assist. [place], [address]. Patient would benefit from continued OT treatment to maximize independence, activity tolerance, and safety with ADLs, functional transfers, and mobility. Thank you. Rossi Harris, OTR/L
[2019-09-06 12:00] VITALS: BP 150/68
--- NOTE | 2019-09-06 12:45 | NUR ---
CONFUSED, THINKS HE IS IN APARTMENT BUILDING. THREW PHONE ACROSS ROOM BECAUSE HE IS ANGRY. REORIENTED
--- NOTE | 2019-09-06 14:49 | NUR ---
Faxed updates and therapy evals to [facility], asked to start precert. waiting for auth.
[2019-09-06 16:00] VITALS: BP 132/73
[2019-09-06 20:00] VITALS: BP 127/63
--- NOTE | 2019-09-06 21:18 | NUR ---
PATIENT DEMANDING ON LEAVING AMA. CALLED FOR A RIDE TO PICK HIM UP. SLAMMED HIS PHONE AND BROKE IT ON THE FLOOR. DR. LORA NOTIFIED AND DJANGO DEVELOPER NOTIFIED (NINA). IV REMOVED FROM RIGHT ARM AND AMA PAPER SIGNED.
--- NOTE | 2019-09-06 21:39 | NUR ---
PATIENT LEFT WITH A FRIEND AT THIS TIME.
--- NOTE | 2019-09-07 07:47 | NUR ---
PHYSICAL THERAPY CO-SIGN I approve of the Physical Therapy notes written above. Jessica Singleton PT
== END 2019-09-06 21:58 | disposition left against medical advice (07) | DRG 770 ==
LOC: ED 15:41 → 4E 17:24 → EDHOLD 17:24 → 4E 17:55 → 5E 09-05 18:53
PROVIDERS: Family Medicine; Internal Medicine; Nurse Practitioner Family; ADMIT Internal Medicine
DX: F10.230 Alcohol dependence with withdrawal, uncomplicated (principal); E43 Unspecified severe protein-calorie malnutrition; E87.2 Acidosis; Z53.29 Procedure and treatment not carried out because of patient's decision for other reasons; F17.210 Nicotine dependence, cigarettes, uncomplicated; E83.41 Hypermagnesemia; R73.9 Hyperglycemia, unspecified; E87.6 Hypokalemia; I10 Essential (primary) hypertension; J44.9 Chronic obstructive pulmonary disease, unspecified; I48.0 Paroxysmal atrial fibrillation; D53.9 Nutritional anemia, unspecified; D69.6 Thrombocytopenia, unspecified; F41.9 Anxiety disorder, unspecified; B95.7 Other staphylococcus as the cause of diseases classified elsewhere; Z71.6 Tobacco abuse counseling; Z68.1 Body mass index [BMI] 19.9 or less, adult; Z82.0 Family history of epilepsy and other diseases of the nervous system; Z82.49 Family history of ischemic heart disease and other diseases of the circulatory system; Z79.899 Other long term (current) drug therapy

== ENCOUNTER 2019-09-12 13:11 | Inpatient (IN) | payer OTHER ==
[~2019-09-12] VITALS: Ht 177.8 cm; Wt 52.8 kg
[~2019-09-12 13:11] MED LIST changes: +POTASSIUM CHLO20 ME3 PO
[2019-09-12 13:13] VITALS: BP 122/83
[2019-09-12 14:17] LABS: HEMATOCRIT 41.3 % (42.0-52.0); MEAN CELL VOLUME 96.9 fl (80.0-94.0); MEAN CORPUSCULAR HGB 32.9 pg (27.0-31.0); MEAN CORPUSCULAR HGB CONC 33.9 g/dl (33.0-37.0); PLATELET COUNT AUTOMATED 136 10*3/uL (130-400); RED BLOOD COUNT 4.26 10*6/uL (4.50-5.90); RED CELL DISTRI WIDTH 13.2 % (0-14.5); WHITE BLOOD COUNT 7.3 10*3/uL (4.8-10.8)
[2019-09-12 14:30] LABS: INTERNATIONAL NORM RATIO 0.9 (2.0-3.5)
[2019-09-12 14:31] LABS: ALBUMIN 2.9 gm/dl (3.1-4.5); ALKALINE PHOSPHATASE 112 U/L (45-117); BUN 1 mg/dl (7-24); CHLORIDE 104 mmol/L (98-107); CREATININE 0.69 mg/dL (0.70-1.30); LIPASE 217 U/L (73-393); POTASSIUM 3.9 mmol/L (3.5-5.1); SGOT/AST 133 IU/L (3-35); SGPT/ALT 64 U/L (12-78); SODIUM 141 mmol/L (136-145); TOTAL PROTEIN 6.3 gm/dL (6.4-8.2)
[2019-09-12 14:33] LABS: TROPONIN I < 0.015 ng/ml (<0.045)
[2019-09-12 14:53] LABS: PLATELET SUFFICIENCY LOW (NORMAL); TARGET CELLS FEW; TOTAL CELLS COUNTED 100 #CELLS
--- NOTE | 2019-09-12 17:45 | NUR ---
A 54YO MALE, admitted to , under the services of ESTELA Cabrales DO with a diagnosis of MULTIPLE RIB FRACTURES/ALCOHOL ABUSE. Chief complaint is FELL THREE DAYS AGO, PAIN TO LEFT RIB CAGE SINCE THEN. Patient arrived via stretcher from ER. Monitor applied. Initial assessment completed. Vital signs taken and recorded. ESTELA CABRALES DO notified of admission to the unit. Orders received. See assessment for past medical history, medications and allergies. Patient and/or family oriented to unit. [facility]. Clothing/patient valuable form completed. NORA SHARIF
[2019-09-12 18:00] VITALS: BP 131/87
--- NOTE | 2019-09-12 18:06 | NUR ---
MEDICATED WITH PRN PO NORCO FOR LEFT RIB CAGE PAIN.
--- NOTE | 2019-09-12 19:35 | NUR ---
IN TO SEE PT AT THIS TIME. PT IS ASLEEP IN BED AT THIS TIME. NO S/S OF DISTRESS NOTED. RESPS ARE EASY AND NONLABORED. BED IS LOW, CALL LIGHT WITHIN REACH. WILL CONTINUE TO MONITOR.
[2019-09-12 20:00] VITALS: BP 131/87
[2019-09-13] VITALS: BP 109/63
[2019-09-13 06:40] LABS: BASO % 0.5 % (0.0-1.0); EOS % 0.7 % (1.0-4.0); HEMATOCRIT 39.9 % (42.0-52.0); LYMPH # 1.1 10*3/uL (1.3-4.4); LYMPH % 18.3 % (27.0-41.0); MEAN CELL VOLUME 97.1 fl (80.0-94.0); MEAN CORPUSCULAR HGB 31.6 pg (27.0-31.0); MEAN CORPUSCULAR HGB CONC 32.6 g/dl (33.0-37.0); MEAN PLATELET VOLUME 11.4 fl (9.6-12.3); MONO # 1.1 10*3/uL (0.1-1.0); MONO % 18.1 % (3.0-9.0); NEUT # 3.8 10*3/uL (2.3-7.9); NEUT % 62.2 % (47.0-73.0); PLATELET COUNT AUTOMATED 135 10*3/uL (130-400); RED BLOOD COUNT 4.11 10*6/uL (4.50-5.90); RED CELL DISTRI WIDTH 13.2 % (0-14.5); WHITE BLOOD COUNT 6.1 10*3/uL (4.8-10.8)
[2019-09-13 06:55] LABS: ALBUMIN 2.7 gm/dl (3.1-4.5); ALKALINE PHOSPHATASE 107 U/L (45-117); BUN 2 mg/dl (7-24); CHLORIDE 104 mmol/L (98-107); CREATININE 0.66 mg/dL (0.70-1.30); POTASSIUM 3.7 mmol/L (3.5-5.1); SGOT/AST 121 IU/L (3-35); SGPT/ALT 59 U/L (12-78); SODIUM 139 mmol/L (136-145); TOTAL PROTEIN 6.4 gm/dL (6.4-8.2)
--- NOTE | 2019-09-13 07:30 | NUR ---
MEDICATED WITH PRN PO NORCO FOR LEFT RIB CAGE PAIN.
--- NOTE | 2019-09-13 07:33 | NUR ---
PHYSICAL THERAPY Screen and PT eval received will follow thank you Jessica Singleton PT
[2019-09-13 07:35] VITALS: BP 138/80
--- NOTE | 2019-09-13 08:04 | NUR ---
Occupational therapy and nursing screen received. Will follow up with patient for completion of OT eval. Thank you. Rossi Harris, OTR/L
--- NOTE | 2019-09-13 09:15 | NUR ---
Occupational therapy orders receive and chart reviewed. Patient was supine in bed upon arrival stating "I'm too weak to get up." Patient educated on benefits of OT and refused an evaluation at this time. Will check back with patient later this AM. Thank you. Rossi Harris, OTR/L
--- NOTE | 2019-09-13 09:15 | NUR ---
MEDICATED WITH PRN PO MOTRIN FOR LEFT RIBCAGE PAIN. PRN PO NORCO WAS SOMEWHAT EFFECTIVE EARLIER, BUT ANY CHANGE IN POSITION CAUSES SEVER PAIN. APPLIED ICE PACK TO LEFT RIBS.
--- NOTE | 2019-09-13 09:15 | NUR ---
PHYSICAL THERAPY Attempted to see pt for evaluation declining therapy due to in "too much pain" nsg aware will try later in AM vs PM. Jessica Singleton PT
--- NOTE | 2019-09-13 09:41 | NUR ---
PATIENT UP TO BSC W/2 ASSIST, LEFT RIBS VERY PAINFUL WITH MOVEMENT, HR UP TO 130'S, GENERALIZED SHAKING AND WEAKNESS NOTED WITH STANDING.
--- NOTE | 2019-09-13 11:30 | NUR ---
Occupational therapy orders received and OT evaluation completed in full on floor five. Patient precautions include fall risk, increased pain, rib fx, bed alarm, weakness. Per OT eval, OT recommends SNF. Patient would benefit from continued OT treatment to maximize safety and independence with ADLs, transfers, and mobility. Patient complexity is mod, [address]07[address]. Thank you for the referral. Rossi Harris, OTR/L
[2019-09-13 12:00] VITALS: BP 110/64
--- NOTE | 2019-09-13 12:08 | NUR ---
PHYSICAL THERAPY Nakita completed moderated level of complexity 37108 recomend SNF at discharge full report to follow. PT to work on transfers,amb w AD, balance/safety and strengthening. Jessica Singleton PT
--- NOTE | 2019-09-13 12:43 | NUR ---
Patient requested a referral to [facility]; contacted Tamela and faxed full referral. Requires precert. waiting on review/acceptance.
--- NOTE | 2019-09-13 13:18 | NUR ---
MEDICATED WITH PRN PO NORCO FOR LEFT RIB CAGE PAIN.
--- NOTE | 2019-09-13 14:39 | NUR ---
Thread Winder in to talk to patient. Patient states lives at HOME with ALONE. There are NO steps in the home. Physician: LUIS [facility]: [facility] Home health services: NONE Patient's level of ADLs: INDEPENDENT Patient has working utilities: YES DME: NONE Follow-up physician's appointment after d/c: WILL BE MADE BY HOSPITALIST NURSE DIRECTOR ON DISCHARGE. Does patient want to access PORTAL?: NO Discharge plan PT LIVES AT HOME ALONE AND IS INDEPENDENT IN HIS CARE. PT IS REQUESTING REFERRAL TO [facility]. BATH TESTER INFORMED AND WILL SEND REFERRAL. WILL CONTINUE TO FOLLOW.. KEITH HOOVER
[2019-09-13 16:00] VITALS: BP 111/60
--- NOTE | 2019-09-13 17:15 | NUR ---
MEDICATED WITH PRN PO MOTRIN FOR LEFT RIBS PAIN, ICE PACK IN PLACE TO LEFT SIDE.
--- NOTE | 2019-09-13 18:22 | NUR ---
HR CURRENTLY 70'S AND REGULAR/NSR ON MONITOR, WAS PREVIOUSLY AFIB 80'S -90'S.
--- NOTE | 2019-09-13 19:09 | NUR ---
24 HR CHART CHECK COMPLETE.
--- NOTE | 2019-09-13 19:21 | NUR ---
IN TO SEE PT AT THIS TIME. NO S/S OF DISTRESS NOTED. PT APPEARS TO BE LETHARGIC AND HE STATES THAT HE "JUST WANTS TO GO TO BED". PT MEDICATED WITH SCHEDULED DOSE OF ATIVAN. NO OTHER C/O VOICED. BED IS LOW, CALL LIGHT WITHIN REACH. WILL CONTINUE TO MONITOR.
[2019-09-13 20:00] VITALS: BP 130/67
[2019-09-14] VITALS: BP 115/90
--- NOTE | 2019-09-14 07:30 | NUR ---
TOOK OVER CARE OF PT. PT RESTING IN BED. EYES OPEN, ALERT ORIENTED AND COOPERATIVE WITH STAFFF. PT ENCOURAGED TO USE INCENTIVE SPIROMETER. RESPIRATIONS UNLABORED ON ROOM AIR. PT C/O LEFT RIB PAIN. PT GIVEN ICE PER HIS REQUEST. ALL NEEDS ARE CURRENTLY MET. SAFETY MEASURES IN PLACE. CALL LIGHT IN REACH.
[2019-09-14 08:00] VITALS: BP 130/68
--- NOTE | 2019-09-14 08:02 | NUR ---
Patient has been accepted to [facility]. Hospital exemption complete. requires precert.
--- NOTE | 2019-09-14 10:48 | NUR ---
OT NOTE PATIENT SEEN 1:1 OT THIS DATE 15 MINUTES TOLERATED. PATIENT COMPLETED SUPINE TO SIT EOB MIN A. PATIENT REPORTS 8/10 RIB PAIN THIS DATE. PATIENT COMPLETED UB/LB DRESSING MAX A TO DOWN GOWN AND PULLOVER PANTS SECONDARY SLOW PACE AND COMPLAIN SEVERE RIB PAIN WITH MOVEMENT. PATIEN UNABLE TO PULL PANTS OVER HIPS DUE TO COMPLAIN RIB PAIN AND NEED BILATERAL UE SUPPORT. PATIENT COMPLETED SIT TO STAND FROM BED MIN A WITH MIN VERBAL CUES SAFETY/PROPER HAND PLACEMENT. PATIENT COMPLETED STAND TOLERANCE USE FWW SUPPORT APPROX 30 SECONDS. PATIENT VERBALIZING UNABLE TO TOLERATE AMBULATING DISTANCE TO BATHROOM TO COMPLETE GROOMING STAND AT SINK. PATIENT COMPLETED SIT TO SUPINE BED MIN A. PATIENT IN BED WITH CALL LIGHT IN REACH AND BED ALARM INTACT. CONTINUE TOWARDS PLAN OF CARE. HUAN Hodges
--- NOTE | 2019-09-14 11:09 | NUR ---
PHYSICAL THERAPY TREATMENT TIEM: 10:50 AM 16 MINUTES Patient presented to therapy in supine with head of bed elevated and visitor in room with patient. Patient gives informed consent for treatment. Patient was identified by name and on wristband. Patient reports L rib/trunk pain of 10/10. Patient performed supine to sittign on EOB transfer with MIN A X 1. Patient scooted to EOB with CGA. Patient transferred sit to stand from EOB with MIN A X 2. Patient ambulated with Wh Walker with CGA X 1 for 20' x 1 with increased pain in the L RIBS/TRUNK area and no LOB. Patient declines further ambulation or therapy due to the increased rib pain. Patient performed transfer sit at EOB back to supine in bed with MIN A X 1. Patient was left in supine in bed with head of bed elevated, call light within reach and bed alarm activated. Patient was 1:1 with this APPLICATION DEVELOPMENT INTERN for 16 minutes total. BOLIVAR ROBLES APPLICATION DEVELOPMENT INTERN
--- NOTE | 2019-09-14 11:42 | NUR ---
Patient updated clinicals and notes faxed to [facility] for precert. waiting on auth.
[2019-09-14 12:00] VITALS: BP 135/68
--- NOTE | 2019-09-14 13:10 | NUR ---
[facility] and is ok to go if medically stable for discharge.
--- NOTE | 2019-09-14 13:54 | NUR ---
[facility] is [facility] for today 09/14/19 and tomorrow 09/15/19 only.
--- NOTE | 2019-09-14 14:31 | NUR ---
PT GIVEN PO SCHEDULED MEDICATIONS. PT DENIES TREMORS AND DISTRESS. PT DENIES NEEDING ANYTHING. PT USING INCENTIVE SPIROMETER DIRECTED, EDUCATED ON IMPORTANCE. RESPIRATIONS EASY AND UNLABORED. WILL MONITOR. CALL LIGHT IN REACH.
--- NOTE | 2019-09-14 15:48 | NUR ---
Nursing screen received and patient on OT caseload. Thank you. Enedelia Yarbrough OTR/L
--- NOTE | 2019-09-14 15:56 | NUR ---
OCCUPATIONAL THERAPY CO-SIGN I approve of the Occupational Therapy notes written above. NANETTE EAGLE OTR/[place]
[2019-09-14 16:00] VITALS: BP 118/83
--- NOTE | 2019-09-14 18:00 | NUR ---
PT SLEEPING IN BED. RESPIRATIONS EASY AND UNLABORED. NO S/S OF DISTRESS. HOB ELEVATED. SAFETY MEASURES IN PLACE. CALL LIGHT IN REACH.
--- NOTE | 2019-09-14 19:51 | NUR ---
NORCO ADMINISTERED FOR PT C/O 03/11 LEFT SIDED RIBCAGE PAIN. PT PROVIDED WITH ICE FOR THE SITE. WILL CONTINUE TO MONITOR AND REASSESS.
[2019-09-14 20:00] VITALS: BP 116/75
--- NOTE | 2019-09-14 22:00 | NUR ---
PT RESTING IN BED. NO COMPLAINTS AT THIS TIME.
[2019-09-15] VITALS: BP 145/91
--- NOTE | 2019-09-15 04:00 | NUR ---
24 HOUR CHART CHECK COMPLETE.
--- NOTE | 2019-09-15 06:30 | NUR ---
MOTRIN ADMINISTERED FOR PT C/O 03/11 LEFT SIDED RIBCAGE PAIN. WILL CONTINUE TO MONITOR.
--- NOTE | 2019-09-15 07:25 | NUR ---
TOOK OVER CARE OF PT. PT SITTING UP IN BED, HOB ELEVATED, EATING BREAKFAST. PT STATES THAT HE HAS "SOME PAIN" TO HIS LEFT SIDE/RIBS. PT REQUESTS ICE. PT GIVEN 2 ICE PACKS. PT DENIES NEEDING ANYTHING ELSE AT THIS TIME. ALL SAFETY MEASURES ARE IN PLACE. CALL LIGHT IN REACH.
[2019-09-15 08:00] VITALS: BP 145/80
[2019-09-15] MEDS ORDERED: VITAMIN B-1100 M1 PO (09:24)
[2019-09-15] MEDS ORDERED: NATURE'S BLEND F1 MG PO (09:24)
[2019-09-15] MEDS ORDERED: HYDROCODONE-AC1 EAC1 PO (09:24)
--- NOTE | 2019-09-15 11:01 | NUR ---
Patient is discharged to [facility] via [facility] at 12:30. DC information faxed, NH, nursing/kitchen stewardess and person listed on annie Vincent all notified.
--- NOTE | 2019-09-15 11:08 | NUR ---
REPORT CALLED TO DAVID HEWITT AT [facility].
--- NOTE | 2019-09-15 11:42 | NUR ---
PT DENIES WANTING PAIN MEDICATION BEFORE TRANSFER TO [facility].
[2019-09-15 12:00] VITALS: BP 127/65
--- NOTE | 2019-09-15 13:28 | NUR ---
Discharge instructions reviewed with patient/family. Patient receptive and verbalizes understanding. Follow-up care arranged. Written instructions given to patient/family. LUIS REDMAN
--- NOTE | 2019-09-15 14:42 | NUR ---
PHYSICAL THERAPY CO-SIGN I approve of the Physical Therapy notes written above. Jessica Singelton PT
== END 2019-09-15 13:28 | DRG 135 ==
LOC: ED 13:11 → EDHOLD 15:51 → 5E 15:51
PROVIDERS: Internal Medicine; Nurse Practitioner Family; ADMIT Family Medicine
DX: S22.42XA Multiple fractures of ribs, left side, initial encounter for closed fracture (principal); F10.239 Alcohol dependence with withdrawal, unspecified; F10.229 Alcohol dependence with intoxication, unspecified; E43 Unspecified severe protein-calorie malnutrition; I10 Essential (primary) hypertension; F17.210 Nicotine dependence, cigarettes, uncomplicated; I48.91 Unspecified atrial fibrillation; J44.9 Chronic obstructive pulmonary disease, unspecified; D53.9 Nutritional anemia, unspecified; Y90.9 Presence of alcohol in blood, level not specified; F41.9 Anxiety disorder, unspecified; W19.XXXA Unspecified fall, initial encounter; Z68.1 Body mass index [BMI] 19.9 or less, adult; Z82.49 Family history of ischemic heart disease and other diseases of the circulatory system; Z82.0 Family history of epilepsy and other diseases of the nervous system; Y93.89 Activity, other specified; Y92.89 Other specified places as the place of occurrence of the external cause; Y99.8 Other external cause status

== ENCOUNTER 2020-03-08 10:39 | Observation (INO) | payer OTHER ==
[~2020-03-08] VITALS: Ht 177.8 cm; Wt 52.7 kg
[~2020-03-08 10:39] MED LIST changes: +HYDROCODONE-AC1 EAC1 PO; +NATURE'S BLEND F1 MG PO; +VITAMIN B-1100 M1 PO
[2020-03-08 10:41] VITALS: BP 140/95
[2020-03-08 11:04] LABS: EOS % 0.5 % (1.0-4.0); HEMATOCRIT 44.2 % (42.0-52.0); LYMPH # 1.2 10*3/uL (1.3-4.4); LYMPH % 19.8 % (27.0-41.0); MEAN CELL VOLUME 95.3 fl (80.0-94.0); MEAN CORPUSCULAR HGB 31.5 pg (27.0-31.0); MEAN PLATELET VOLUME 11.1 fl (9.6-12.3); MONO # 0.6 10*3/uL (0.1-1.0); MONO % 9.7 % (3.0-9.0); NEUT # 4.1 10*3/uL (2.3-7.9); NEUT % 69.8 % (47.0-73.0); PLATELET COUNT AUTOMATED 81 10*3/uL (130-400); RED BLOOD COUNT 4.64 10*6/uL (4.50-5.90); RED CELL DISTRI WIDTH 11.9 % (0-14.5); WHITE BLOOD COUNT 5.9 10*3/uL (4.8-10.8)
[2020-03-08 11:11] LABS: INTERNATIONAL NORM RATIO 0.9 (2.0-3.5)
[2020-03-08 11:17] LABS: ALBUMIN 3.2 gm/dl (3.1-4.5); ALKALINE PHOSPHATASE 145 U/L (45-117); BUN < 1 mg/dl (7-24); CHLORIDE 98 mmol/L (98-107); CREATININE 0.71 mg/dL (0.70-1.30); LIPASE 287 U/L (73-393); POTASSIUM 2.9 mmol/L (3.5-5.1); SGOT/AST 245 IU/L (3-35); SGPT/ALT 116 U/L (12-78); SODIUM 134 mmol/L (136-145); TOTAL PROTEIN 7.4 gm/dL (6.4-8.2); TROPONIN I < 0.015 ng/ml (<0.045)
--- NOTE | 2020-03-08 11:55 | NUR ---
PT PROMPTED FOR URINE SAMPLE. PROVIDED URINE CUP.
[2020-03-08 12:43] VITALS: BP 129/84
--- NOTE | 2020-03-08 12:46 | NUR ---
PT DENIES WOUNDS.
--- NOTE | 2020-03-08 14:18 | NUR ---
PT COMPLAINTS OF POTASSIUM BURNING IN IV. RATE TITRATED TO 10ML/HR.
[2020-03-08 15:16] LABS: BILIRUBIN NEGATIVE (NEGATIVE); BLOOD NEGATIVE (NEGATIVE); CLARITY SL CLOUDY (CLEAR); COLOR YELLOW (YELLOW); GLUCOSE NEGATIVE (NEGATIVE); KETONE NEGATIVE (NEGATIVE); LEUKO ESTERASE NEGATIVE (NEGATIVE); NITRITE NEGATIVE (NEGATIVE); SPECIFIC GRAVITY 1.005 (1.005-1.030); UROBILINOGEN 0.2 E.U./dl (0.2-1.0)
[2020-03-08 15:23] LABS: BACTERIA 1+; EPITHELIAL CELLS 0-2; RBC 0-2 rbc/hpf (0-2); WBC 0-2 wbc/hpf (0-5)
[2020-03-08 16:18] VITALS: BP 132/82
--- NOTE | 2020-03-08 17:10 | NUR ---
A 55, admitted to , under the services of NATALI Mahan DO with a diagnosis of SYNCOPE. Chief complaint is SYNCOPE. Patient arrived via bed from ER. Monitor applied. Initial assessment completed. Vital signs taken and recorded. NATALI MAHAN DO notified of admission to the unit. Orders received. See assessment for past medical history, medications and allergies. Patient and/or family oriented to unit. [facility]. Clothing/patient valuable form completed. RENETTA CABRERA
[2020-03-08 17:18] VITALS: BP 151/91
[2020-03-08 20:00] VITALS: BP 123/72
--- NOTE | 2020-03-08 23:42 | NUR ---
ASSUMED CARE OF PATIENT. PATIENT IS SLEEPING. AWAKENS EASILY FOR ASSESSMENT. ASSESSMENT IS COMPLETE WITH NO S/S OF DISTRESS NOTED AT THIS TIME. PATIENT C/O BEING "WORN OUT". 0000 ATIVAN GIVEN AT THIS TIME. PATIENT TOLERATED WELL. BED IS LOW, LOCKED, ALARMED, AND CALL LIGHT IS WITHIN REACH. WILL CONTINUE TO MONITOR, SEE INTERVENTIONS.
[2020-03-09] VITALS: BP 140/87
--- NOTE | 2020-03-09 01:54 | NUR ---
CHART CHECK COMPLETE.
[2020-03-09 06:30] LABS: BASO % 0.2 % (0.0-1.0); EOS # 0.1 10*3/uL (0.0-0.4); EOS % 1.3 % (1.0-4.0); HEMATOCRIT 33.8 % (42.0-52.0); LYMPH # 1.3 10*3/uL (1.3-4.4); LYMPH % 29.5 % (27.0-41.0); MEAN CELL VOLUME 98.3 fl (80.0-94.0); MEAN CORPUSCULAR HGB CONC 32.5 g/dl (33.0-37.0); MEAN PLATELET VOLUME 11.8 fl (9.6-12.3); MONO # 0.5 10*3/uL (0.1-1.0); MONO % 10.2 % (3.0-9.0); NEUT # 2.6 10*3/uL (2.3-7.9); NEUT % 58.6 % (47.0-73.0); PLATELET COUNT AUTOMATED 69 10*3/uL (130-400); RED BLOOD COUNT 3.44 10*6/uL (4.50-5.90); RED CELL DISTRI WIDTH 12.3 % (0-14.5); WHITE BLOOD COUNT 4.5 10*3/uL (4.8-10.8)
[2020-03-09 06:44] LABS: ALBUMIN 2.3 gm/dl (3.1-4.5); CHLORIDE 111 mmol/L (98-107); CHOLESTEROL 130 mg/dL (<200); CREATININE 0.42 mg/dL (0.70-1.30); HDL CHOLESTEROL 85 mg/dl (40-60); LDL CHOLESTEROL 32 mg/dL (9-159); POTASSIUM 3.3 mmol/L (3.5-5.1); SGOT/AST 125 IU/L (3-35); SODIUM 139 mmol/L (136-145); TOTAL PROTEIN 5.4 gm/dL (6.4-8.2); TRIGLYCERIDES 64 mg/dl (<150); VLDL CHOLESTEROL 13 mg/dL (6-40)
[2020-03-09 06:52] LABS: ALKALINE PHOSPHATASE 99 U/L (45-117); FREE T4 0.86 ng/dl (0.76-1.46); SGPT/ALT 76 U/L (12-78)
[2020-03-09 07:03] LABS: BUN < 1 mg/dl (7-24)
[2020-03-09 07:10] LABS: VITAMIN D, 25-HYDROXY 32.6 ng/mL (30-100)
--- NOTE | 2020-03-09 08:00 | NUR ---
PT RESTING IN BED. NO DISTRESS NOTED. WILL MONITOR
[2020-03-09 08:39] VITALS: BP 152/89
--- NOTE | 2020-03-09 12:30 | NUR ---
DR LYONS ANSWERING SERVICE NOTIFIED OF CONSULT
--- NOTE | 2020-03-09 13:03 | NUR ---
NOTIFIED DR BOBBY ORTHO BP
--- NOTE | 2020-03-09 13:36 | NUR ---
Lining Marker in to talk to patient. Patient states lives at HOME with ALONE. There are NO steps in the home. Physician: LUIS [facility] Home health services: [facility] Patient's level of ADLs: INDEPENDENT Patient has working utilities: YES DME: [facility] Follow-up physician's appointment after d/c: WILL BE MADE BY HOSPITALIST RN COORDINATOR Does patient want to access PORTAL?: NO Discharge plan INSTRUMENT ADJUSTER SPOKE WITH THE PATIENT AT BEDSIDE. THE PATIENT STATED HE LIVE ALONE. THE PATIENT STATED HE IS INDEPENDENT WITH ADLS. THE PATIENT DOES NOT DRIVE BUT HAS FRIENDS/FAMILY WHO ASSIST HIM WITH OBTAINING GROCERIES. THE PATIENT STATED HE CURRENTLY HAS [facility] AND WOULD LIKE TO RESUME THEM UPON DISCHARGE. PATIENT STATED HE WILL HAVE TRANSPORTATION UPON DISCHARGE, IF NOT WILL CALL A [facility]AX[facility]. LIBORIO BEAVER
[2020-03-09 16:00] VITALS: BP 148/88
[2020-03-09 20:00] VITALS: BP 142/83
[2020-03-10] VITALS: BP 120/64
[2020-03-10 06:00] LABS: ALBUMIN 2.3 gm/dl (3.1-4.5); ALKALINE PHOSPHATASE 97 U/L (45-117); BUN 2 mg/dl (7-24); CHLORIDE 106 mmol/L (98-107); CREATININE 0.53 mg/dL (0.70-1.30); POTASSIUM 3.6 mmol/L (3.5-5.1); SGOT/AST 96 IU/L (3-35); SGPT/ALT 73 U/L (12-78); SODIUM 135 mmol/L (136-145); TOTAL PROTEIN 5.4 gm/dL (6.4-8.2)
[2020-03-10 08:00] VITALS: BP 142/80
--- NOTE | 2020-03-10 08:05 | NUR ---
PT RESTING IN BED. RESP-EASY AND REGULAR. TOLERATED ROUTINE MED WITH NO PROBLEM. NO C/O AT THIS TIME. CALL LIGHT IN REACH. SEE SHIFT ASSESSMENT.
[2020-03-10] MEDS ORDERED: GOOD SENSE ASP325 MG PO (08:29)
[2020-03-10] MEDS ORDERED: CARVEDILOL6.25 MG PO (08:29)
--- NOTE | 2020-03-10 08:40 | NUR ---
MARCELA CARLSON IN TO SEE PT.
--- NOTE | 2020-03-10 09:21 | NUR ---
Discharge instructions reviewed with patient/family. Patient receptive and verbalizes understanding. Follow-up care arranged. Written instructions given to patient/family. HEPLOCK REMOVED. 2X2 APPLIED. ESCORTED VIA WHEELCHAIR FOR DISCHARGE. CINDI MARTINEZ
== END 2020-03-10 09:36 | disposition home or self-care (01) ==
LOC: ED 10:39 → 5E 16:01 → EDHOLD 16:01 → 5E 16:30
PROVIDERS: Physician Assistant; Registered Nurse; ADMIT Emergency Medicine
DX: R55 Syncope and collapse (principal); R11.2 Nausea with vomiting, unspecified; E87.6 Hypokalemia; F10.20 Alcohol dependence, uncomplicated; J44.9 Chronic obstructive pulmonary disease, unspecified; I10 Essential (primary) hypertension; R74.0 Nonspecific elevation of levels of transaminase and lactic acid dehydrogenase [LDH]; F17.210 Nicotine dependence, cigarettes, uncomplicated; R00.0 Tachycardia, unspecified; E87.2 Acidosis; E44.0 Moderate protein-calorie malnutrition; I48.91 Unspecified atrial fibrillation

== ENCOUNTER 2020-03-10 18:27 | Inpatient (IN) | payer OTHER ==
[~2020-03-10] VITALS: Ht 177.8 cm; Wt 53.8 kg
[~2020-03-10 18:27] MED LIST changes: +GOOD SENSE ASP325 MG PO
[2020-03-10 18:33] VITALS: BP 141/86
--- NOTE | 2020-03-10 18:57 | NUR ---
NURSE REPORT PROVIDED TO DAVID REDDY, FOR COMNITUATION OF CARE.
[2020-03-10 20:08] LABS: BASO % 0.2 % (0.0-1.0); EOS # 0.1 10*3/uL (0.0-0.4); EOS % 1.1 % (1.0-4.0); HEMATOCRIT 39.3 % (42.0-52.0); LYMPH % 18.6 % (27.0-41.0); MEAN CELL VOLUME 100.3 fl (80.0-94.0); MEAN CORPUSCULAR HGB 31.9 pg (27.0-31.0); MEAN CORPUSCULAR HGB CONC 31.8 g/dl (33.0-37.0); MEAN PLATELET VOLUME 11.5 fl (9.6-12.3); MONO # 0.8 10*3/uL (0.1-1.0); MONO % 14.5 % (3.0-9.0); NEUT # 3.6 10*3/uL (2.3-7.9); NEUT % 65.4 % (47.0-73.0); RED BLOOD COUNT 3.92 10*6/uL (4.50-5.90); RED CELL DISTRI WIDTH 12.2 % (0-14.5); WHITE BLOOD COUNT 5.4 10*3/uL (4.8-10.8)
[2020-03-10 20:20] LABS: ALBUMIN 2.8 gm/dl (3.1-4.5); ALKALINE PHOSPHATASE 105 U/L (45-117); BUN 1 mg/dl (7-24); CHLORIDE 105 mmol/L (98-107); CREATININE 0.63 mg/dL (0.70-1.30); POTASSIUM 3.3 mmol/L (3.5-5.1); SGOT/AST 95 IU/L (3-35); SGPT/ALT 82 U/L (12-78); SODIUM 138 mmol/L (136-145); TOTAL PROTEIN 6.3 gm/dL (6.4-8.2)
[2020-03-10 20:32] LABS: ETHYL ALCOHOL < 3.0 mg/dl (<3); PLATELET COUNT AUTOMATED 94 10*3/uL (130-400)
--- NOTE | 2020-03-10 23:30 | NUR ---
IV started right arm with #22 protective cath after 0 attempts. Site prepped with Chloroprep. Sterile dressing applied. Patient tolerated procedure well. SARAHI URBINA
[2020-03-11 00:21] VITALS: BP 121/69
[2020-03-11 00:30] VITALS: BP 144/77
--- NOTE | 2020-03-11 00:30 | NUR ---
A 55, admitted to 5E, under the services of NATALI Mahan DO with a diagnosis of SYNCOPE, GENERALIZED WEAKNESS, UNABLE TO AMBULATE. Chief complaint is UNABLE TO AMBULATE. Patient arrived via ambulance from ER. Monitor applied. Initial assessment completed. Vital signs taken and recorded. NATALI MAHAN DO notified of admission to the unit. Orders received. See assessment for past medical history, medications and allergies. Patient and/or family oriented to unit. visitation policy reviewed. Clothing/patient valuable form completed. KUN DUNHAM
[2020-03-11 06:24] LABS: BASO % 0.2 % (0.0-1.0); EOS # 0.1 10*3/uL (0.0-0.4); EOS % 1.4 % (1.0-4.0); HEMATOCRIT 36.3 % (42.0-52.0); LYMPH # 1.2 10*3/uL (1.3-4.4); LYMPH % 24.2 % (27.0-41.0); MEAN CELL VOLUME 100.6 fl (80.0-94.0); MEAN CORPUSCULAR HGB 32.1 pg (27.0-31.0); MEAN PLATELET VOLUME 11.4 fl (9.6-12.3); MONO # 0.6 10*3/uL (0.1-1.0); MONO % 12.5 % (3.0-9.0); NEUT % 61.5 % (47.0-73.0); PLATELET COUNT AUTOMATED 94 10*3/uL (130-400); RED BLOOD COUNT 3.61 10*6/uL (4.50-5.90); RED CELL DISTRI WIDTH 12.2 % (0-14.5)
[2020-03-11 06:49] LABS: ALBUMIN 2.5 gm/dl (3.1-4.5); ALKALINE PHOSPHATASE 97 U/L (45-117); BUN 2 mg/dl (7-24); CHLORIDE 109 mmol/L (98-107); CREATININE 0.58 mg/dL (0.70-1.30); POTASSIUM 3.6 mmol/L (3.5-5.1); SGOT/AST 69 IU/L (3-35); SGPT/ALT 72 U/L (12-78); SODIUM 138 mmol/L (136-145)
[2020-03-11 07:28] LABS: INTERNATIONAL NORM RATIO 0.9 (2.0-3.5)
--- NOTE | 2020-03-11 07:50 | NUR ---
PHYSICAL THERAPY Screen and PT orders received, will follow. Thank you. Andrea Peoples SPT Jessica Singleton PT
--- NOTE | 2020-03-11 07:52 | NUR ---
Occupational therapy order and nursing screen received. Will follow up with patient for completion of an OT evaluation. Thank you. Rossi Harris, OTR/L
[2020-03-11 08:00] VITALS: BP 138/85
--- NOTE | 2020-03-11 09:00 | NUR ---
case management visits with patient, discused with him a possibly short term snf prior to returning home, educated him he would received 5 days of therapy and 24 hour care, he was receptive to this, given choice of facilities he chose [facility], patient will require an insurance precert prior to discharging to [facility], social work coordinator will make referral to [facility], case management will follow
--- NOTE | 2020-03-11 10:46 | NUR ---
Occupational Therapy evaluation completed on five with full evaluation to follow. Recommend occupational therapy per plan of care and SNF upon discharge. Thank you for this referral. Rossi Harris OTR/L
--- NOTE | 2020-03-11 11:58 | NUR ---
PHYSICAL THERAPY Physical Therapy evaluation completed on 5th floor with full evaluation to follow. Recommend physical therapy per plan of care and SNF upon discharge. Thank you for this referral. Andrea Peoples SPT Jessica Singleton PT
[2020-03-11 12:00] VITALS: BP 127/73
--- NOTE | 2020-03-11 13:15 | NUR ---
PRECERT IS REQUIRED FOR PLACEMENT. UTILITY TECHNICIAN ASKED THAT IF ABLE TO ACCEPT TO HAVE PRECERT STARTED. WILL AWAIT TO HEAR FROM [facility].
--- NOTE | 2020-03-11 15:36 | NUR ---
IN TO SEE PATIENT, HE IS RESTING IN HIS BED WATCHING TV. PT HAS NO COMPLAINTS AT THIS TIME. RESPIRATIONS ARE RELAXED AND REGULAR. CALL LIGHT WITHIN REACH, WILL CONTINUE TO MONITOR.
[2020-03-11 16:00] VITALS: BP 131/76
[2020-03-11 20:00] VITALS: BP 119/79
[2020-03-12] VITALS: BP 123/69
--- NOTE | 2020-03-12 07:59 | NUR ---
PATIENT HAS BEEN ACCEPTED TO [facility]. PRECERT HAS BEEN STARTED. EDGE BURNISHER UPPERS COMPLETED HENS.
[2020-03-12 08:00] VITALS: BP 130/70
--- NOTE | 2020-03-12 09:20 | NUR ---
OT NOTE Pt was seen this A.M. 1:1 for 18 minute OT session. Upon arrival pt was supine in bed. Pt identified by name and and had no complaints at this time. Pt transferred supine to sit EOB with SBA. While sitting EOB pt donned B socks with supervision. Sit to stand completed from bed level with CGA and use of w/w for UE support. Pt had no complaints of feeling dizzy at this time. Functional mobility completed to the bathroom with CGA and use of w/w for UE support. There he transferred on/off standard commode with CGA and use of grab bar for UE support. He then stood sink side while washing his hands and face with CGA with no LOB noted and still no complaints of feeling dizzy. Functional mobility completed back to the recliner. There he completed BUE towel exercises with mod resistance over all planes of motion for 1 X 10 to increase and restore maximum functional strength. Pt tolerated ther ex good. Pt was left sitting reclined in the recliner with call light in hand, tray table in place, and body alarm activated for safety. Continue with POC as able. KATHRIN Schultz/Carroll
--- NOTE | 2020-03-12 10:20 | NUR ---
PHYSICAL THERAPY TREATMENT TIME: 0900 AM - 0920 AM 20 MINUTES Patient presented to therapy in in supine with head of bed slightly elevated and bed alarm activated. Patient had complaint of some minor dizziness. Patient gives informed consent for treatment. Patient was identiifed by name and . Patient performed supine to sitting at EOB with SBA. Patient sat on EOB unassisted. Patient performed sit to stand from EOB SBA-CGA. Patient ambulated with WH Walker with CGA for 50' x 1 and one minor LOB while turning. Patient completed 5 sit to stands from low chair in 30 seconds with SBA. Patient performed sit to stand from low chair with SBA. Patient was left in bedside chair with call light within reach, chair alarm attached and tested. and LEs elevated. Patient was 1:1 with this OPERATIONS/DISPATCH 20 MINUTES TOTAL. harinder nobles fire prevention bureau captain
--- NOTE | 2020-03-12 11:00 | NUR ---
PT UP IN CHAIR EATING LUNCH, NO DISTRESS NOTED. VOICES NO COMPLAINT, CALL LIGHT WITHIN REACH.
--- NOTE | 2020-03-12 11:23 | NUR ---
OCCUPATIONAL THERAPY CO-SIGN I approve of the Occupational Therapy notes written above. VINCENZO QUINTERO, OTR/L
[2020-03-12 12:00] VITALS: BP 113/65
--- NOTE | 2020-03-12 14:38 | NUR ---
PRECERT HAS BEEN OBTAINED AND IS GOOD UNTIL 03/14/2020. PATIENTS COVID RESULTS ARE NEEDED BEFORE ADMISSION TO [facility].
[2020-03-12 16:00] VITALS: BP 140/78
--- NOTE | 2020-03-12 17:54 | NUR ---
PT RESTING IN BED, NO DISTRESS NOTED. CALL LIGHT WITHIN REACH, SIDE RAILS UPX 2.
--- NOTE | 2020-03-12 18:48 | NUR ---
Shift chart check completed.
[2020-03-12 20:00] VITALS: BP 137/86
[2020-03-13] VITALS: BP 126/72
[2020-03-13] MEDS ORDERED: KLOR-CON M2020 ME1 PO (07:39)
[2020-03-13 08:00] VITALS: BP 130/74; BP 136/72
--- NOTE | 2020-03-13 09:00 | NUR ---
case management visits with patient, he is a possibly discharge to [facility] today, precert is available until 03/14/20, case management will follow
--- NOTE | 2020-03-13 09:21 | NUR ---
PATIENT LAYING IN BED. TALKATIVE. VITAL SIGNS STABLE. RESPIRATIONS EASY, REGULAR, NO DISTRESS. HE STATED SOMEONE TOLD HIM HE WAS LEAVING TODAY. CALL LIGHT IN REACH. NO COMPLAINTS AT THIS TIME. WILL CONTINUE TO MONITOR.
--- NOTE | 2020-03-13 10:03 | NUR ---
OT NOTE Pt was seen this A.M. 1:1 for 18 minute OT session. Upon arrival pt was supine in bed. Pt identified by name and and had no complaints at this time. Pt transferred supine to sit EOB with SBA. While sitting EOB pt donned B slippers with supervision. Sit to stand completed from bed level with CGA and use of w/w for UE support. Functional mobility was completed around the room and to the bathroom with CGA and use of w/w. There he transferred on/off standard commode with CGA and use of grab bar for UE support. Functional mobility completed back to the EOB. While standing challenged pt's dynamic standing balance while weight shifting, crossing midline, and reaching over all planes. Pt was able to maintain G- standing balance throughout. Pt transferred back into bed sit to supine with SBA. There he was left with call light in hand, trya table in place, and phone in reach. Continue with rec D/C plan to SNF. KATHRIN Schultz/Carroll
--- NOTE | 2020-03-13 10:05 | NUR ---
PHYSICAL THERAPY Patient seen this am 1:1 for therapy visit and was supine in bed upon therapist arrival. Patient identified by name / and reports no c/o's pain at this time. Patient did however state he has had several mild episodes of feeling light headed while here at the hospital and transfers supine to sit EOB with CGA x 1. Patient needed a minute or so to collect himself before completing sit to stand transfer, CGA, then ambulated 50'x 2, CGA, use of wh walker standing support. Patient demonstrated slow, cautious gait pattern, decreased stride and bouts of unsteady step sequence during 180 degree turn around. Patient c/o of feeling a little light headed upon return to EOB sit on second gait attempt, requiring v/c for visual fixation technique and brief 20 second standing rest break. Patient transfered sit to supine, CGA and remained in bed with call light, tray table and telephone. Will continue per POC as tolerated, total treatment time 18 minutes. Devendra Garibay, APPLICATION DEVELOPER
--- NOTE | 2020-03-13 11:36 | NUR ---
PAYROLL AND BENEFITS SPECIALIST SPOKE WITH DAVID RUBI. PAYROLL AND BENEFITS SPECIALIST ARRANGED FOR A 1:30P TO 2PM TRANSPORT VIA [facility]. [facility] WILL MEET THE PATIENT AT THE [facility]. PAYROLL AND BENEFITS SPECIALIST CALLED AND LEFT A MESSAGE ON SHEYLA KUMAR VOICEMAIL EXPLAINING THIS. PAYROLL AND BENEFITS SPECIALIST TO SEND DISCHARGE ORDERS TO [facility].
--- NOTE | 2020-03-13 13:59 | NUR ---
Discharge instructions reviewed with patient/family. Patient receptive and verbalizes understanding. Follow-up care arranged. Written instructions given to patient/family. MONITOR AND IV REMOVED. PATIENT HAS LEFT THE FLOOR TO GO TO [facility]. GREYSON DOUGLAS
--- NOTE | 2020-03-14 07:44 | NUR ---
OCCUPATIONAL THERAPY CO-SIGN I approve of the Occupational Therapy notes written above. VINCENZO QUINTERO, OTR/L
--- NOTE | 2020-03-14 07:46 | NUR ---
PHYSICAL THERAPY CO-SIGN I approve of the Physical Therapy notes written above. Jessica Singleton PT
== END 2020-03-13 13:59 | DRG 757 ==
LOC: ED 18:27 → EDHOLD 22:05 → 5E 22:05
PROVIDERS: Nurse Practitioner Family; Student in an Organized Health Care Education/Training Program; ADMIT Emergency Medicine
DX: R54 Age-related physical debility (principal); R26.2 Difficulty in walking, not elsewhere classified; I48.0 Paroxysmal atrial fibrillation; F10.20 Alcohol dependence, uncomplicated; E55.9 Vitamin D deficiency, unspecified; D69.6 Thrombocytopenia, unspecified; E43 Unspecified severe protein-calorie malnutrition; F17.210 Nicotine dependence, cigarettes, uncomplicated; E87.6 Hypokalemia; I10 Essential (primary) hypertension; J44.9 Chronic obstructive pulmonary disease, unspecified; F41.9 Anxiety disorder, unspecified; Z71.6 Tobacco abuse counseling; Z82.49 Family history of ischemic heart disease and other diseases of the circulatory system; Z81.8 Family history of other mental and behavioral disorders; Z79.82 Long term (current) use of aspirin; Z79.899 Other long term (current) drug therapy; Z68.1 Body mass index [BMI] 19.9 or less, adult; Z20.828 Contact with and (suspected) exposure to other viral communicable diseases

== ENCOUNTER 2020-04-20 08:19 | Emergency (ER) | payer OTHER ==
[~2020-04-20] VITALS: Ht 177.8 cm; Wt 54.4 kg
[~2020-04-20 08:19] MED LIST changes: +KLOR-CON M2020 ME1 PO
[2020-04-20 08:59] LABS: BASO % 0.6 % (0.0-1.0); EOS # 0.1 10*3/uL (0.0-0.4); EOS % 1.4 % (1.0-4.0); HEMATOCRIT 39.8 % (42.0-52.0); LYMPH # 1.4 10*3/uL (1.3-4.4); LYMPH % 27.3 % (27.0-41.0); MEAN CELL VOLUME 96.1 fl (80.0-94.0); MEAN CORPUSCULAR HGB 32.1 pg (27.0-31.0); MEAN CORPUSCULAR HGB CONC 33.4 g/dl (33.0-37.0); MEAN PLATELET VOLUME 10.3 fl (9.6-12.3); MONO # 0.7 10*3/uL (0.1-1.0); MONO % 13.3 % (3.0-9.0); NEUT # 2.9 10*3/uL (2.3-7.9); NEUT % 57.2 % (47.0-73.0); PLATELET COUNT AUTOMATED 141 10*3/uL (130-400); RED BLOOD COUNT 4.14 10*6/uL (4.50-5.90); RED CELL DISTRI WIDTH 14.3 % (0-14.5)
[2020-04-20 09:11] LABS: ACT PARTIAL THROMBO TIME 25.6 SECONDS (20.0-32.1)
[2020-04-20 09:16] LABS: ALBUMIN 3.1 gm/dl (3.1-4.5); ALKALINE PHOSPHATASE 87 U/L (45-117); BUN 2 mg/dl (7-24); CHLORIDE 105 mmol/L (98-107); POTASSIUM 3.1 mmol/L (3.5-5.1); SGOT/AST 39 IU/L (3-35); SGPT/ALT 24 U/L (12-78); SODIUM 139 mmol/L (136-145); TOTAL PROTEIN 6.6 gm/dL (6.4-8.2)
[2020-04-20 09:20] LABS: TROPONIN I < 0.015 ng/ml (<0.045)
== END 2020-04-20 12:25 | disposition home or self-care (01) ==
LOC: ED 08:19
PROVIDERS: Emergency Medicine
DX: R42 Dizziness and giddiness (principal); I10 Essential (primary) hypertension; J44.9 Chronic obstructive pulmonary disease, unspecified; I48.91 Unspecified atrial fibrillation; Z79.899 Other long term (current) drug therapy; Z79.82 Long term (current) use of aspirin

== ENCOUNTER 2020-05-18 10:31 | Observation (INO) | payer OTHER ==
[2020-05-18] VITALS (8 sets, daily range): BP systolic 127–152; BP diastolic 72–107
[~2020-05-18] VITALS: Ht 177.8 cm; Wt 57.2 kg
[2020-05-18 11:10] LABS: BASO % 0.4 % (0.0-1.0); EOS # 0.1 10*3/uL (0.0-0.4); EOS % 1.6 % (1.0-4.0); HEMATOCRIT 46.3 % (42.0-52.0); LYMPH # 1.7 10*3/uL (1.3-4.4); LYMPH % 30.6 % (27.0-41.0); MEAN CELL VOLUME 98.1 fl (80.0-94.0); MEAN CORPUSCULAR HGB 31.6 pg (27.0-31.0); MEAN CORPUSCULAR HGB CONC 32.2 g/dl (33.0-37.0); MEAN PLATELET VOLUME 9.3 fl (9.6-12.3); MONO # 0.7 10*3/uL (0.1-1.0); MONO % 12.7 % (3.0-9.0); NEUT # 3.1 10*3/uL (2.3-7.9); NEUT % 54.5 % (47.0-73.0); PLATELET COUNT AUTOMATED 182 10*3/uL (130-400); RED BLOOD COUNT 4.72 10*6/uL (4.50-5.90); RED CELL DISTRI WIDTH 13.7 % (0-14.5); WHITE BLOOD COUNT 5.6 10*3/uL (4.8-10.8)
[2020-05-18 11:29] LABS: ALBUMIN 2.8 gm/dl (3.1-4.5); ALKALINE PHOSPHATASE 103 U/L (45-117); BUN 3 mg/dl (7-24); CHLORIDE 108 mmol/L (98-107); CREATININE 0.71 mg/dL (0.70-1.30); LIPASE 205 U/L (73-393); POTASSIUM 3.8 mmol/L (3.5-5.1); SGOT/AST 21 IU/L (3-35); SGPT/ALT 15 U/L (12-78); SODIUM 136 mmol/L (136-145); TOTAL PROTEIN 6.5 gm/dL (6.4-8.2)
[2020-05-18 11:30] LABS: TROPONIN I < 0.015 ng/ml (<0.045)
[2020-05-18 11:33] LABS: ACT PARTIAL THROMBO TIME 28.4 SECONDS (20.0-32.1)
[2020-05-18 12:57] LABS: BILIRUBIN Negative (Negative); BLOOD Negative (Negative); CLARITY Clear (Clear); COLOR Yellow (Yellow); GLUCOSE Negative (Negative); KETONE Negative (Negative); LEUKO ESTERASE Negative (Negative); NITRITE Negative (Negative); SPECIFIC GRAVITY <= 1.005 (1.001-1.030); UROBILINOGEN 0.2 E.U./dl (0.0-1.0)
[2020-05-18 13:12] LABS: EPITHELIAL CELLS 0-2
--- NOTE | 2020-05-18 13:40 | NUR ---
PT WITH LUNCH TRAY AND GOING TO EAT PRIOR TO ADMISSION,NORA HERNANDEZ AWARE.
--- NOTE | 2020-05-18 14:22 | NUR ---
PT GETTING EKG PRIOR TO ADMISSION.
--- NOTE | 2020-05-18 15:10 | NUR ---
A 55YO MALE, admitted to , under the services of ESTELA Self DO with a diagnosis of HEART PALPITATIONS, DIZZINESS NEAR SYNCOPE. Chief complaint is LIGHTHEADEDNESS WITH STANDING OR BENDING DOWN ACCOMPANIED BY SHAKING AND NAUSEA FOR PAST WEEK, WEAKNESS WITH ACTIVITY. Patient arrived via stretcher from ER. Monitor applied. Initial assessment completed. Vital signs taken and recorded. ESTELA SELF DO notified of admission to the unit. Orders received. See assessment for past medical history, medications and allergies. Patient and/or family oriented to unit[facility]. Clothing/patient valuable form completed. NORA SHARIF
[2020-05-18] MEDS ORDERED: COREG3.125 MG PO (15:33)
--- NOTE | 2020-05-18 15:37 | NUR ---
OBTAINED ORTHOSTATIC BLOOD PRESSURES FOLLOWS: LYING BP 125/73, PULSE 73, SITTING BP 136/80, PULSE 96, STANDING BP 136/81, PULSE 110. PATIENT HAD SOME SLIGHT DIZZINESS WITH SITTING AND SEVERE LIGHT-HEADEDNESS WITH NAUSEA AND SHAKING/WEAKNESS WITH STANDING.
[2020-05-19] VITALS: BP 106/62
[2020-05-19 06:51] LABS: BASO % 0.2 % (0.0-1.0); EOS # 0.1 10*3/uL (0.0-0.4); EOS % 1.7 % (1.0-4.0); HEMATOCRIT 38.9 % (42.0-52.0); LYMPH # 1.6 10*3/uL (1.3-4.4); LYMPH % 30.3 % (27.0-41.0); MEAN CELL VOLUME 100.3 fl (80.0-94.0); MEAN CORPUSCULAR HGB 31.4 pg (27.0-31.0); MEAN CORPUSCULAR HGB CONC 31.4 g/dl (33.0-37.0); MEAN PLATELET VOLUME 9.8 fl (9.6-12.3); MONO # 0.6 10*3/uL (0.1-1.0); MONO % 12.4 % (3.0-9.0); NEUT # 2.9 10*3/uL (2.3-7.9); NEUT % 55.2 % (47.0-73.0); PLATELET COUNT AUTOMATED 170 10*3/uL (130-400); RED BLOOD COUNT 3.88 10*6/uL (4.50-5.90); RED CELL DISTRI WIDTH 13.8 % (0-14.5); WHITE BLOOD COUNT 5.2 10*3/uL (4.8-10.8)
[2020-05-19 07:08] LABS: BUN 3 mg/dl (7-24); CHLORIDE 111 mmol/L (98-107); CREATININE 0.63 mg/dL (0.70-1.30); POTASSIUM 3.2 mmol/L (3.5-5.1); SODIUM 141 mmol/L (136-145)
[2020-05-19 08:00] VITALS: BP 116/62
[2020-05-19 12:00] VITALS: BP 126/81
--- NOTE | 2020-05-19 12:00 | NUR ---
PATIENT DENIES ANY NEEDS AT THIS TIME. LYING IN BED. NO C/O DIZZINESS TODAY. CALL LIGHT IS WITHIN REACH AT ALL TIMES.
[2020-05-19 16:00] VITALS: BP 111/64
--- NOTE | 2020-05-19 16:00 | NUR ---
IV started TO UPPER RIGHT ARM with #22 angiocath after 0 attempts. The IV site was prepped with Chloraprep. Heparin lock attached. IV solution NSS infusing at 100 cc/hr. Sterile dressing applied. Patient tolerated precedure well. Procedure performed according to [facility] policy & procedure. ISAI CAMPOS
[2020-05-19 20:00] VITALS: BP 126/70
--- NOTE | 2020-05-19 20:00 | NUR ---
PATIENT RESTING IN BED WITH NO NEEDS MADE. BED IN LOW POSITION, CALL LIGHT IN REACH
[2020-05-20] VITALS: BP 101/49
--- NOTE | 2020-05-20 02:52 | NUR ---
24 HR chart check completed.
[2020-05-20 06:25] LABS: BASO % 0.3 % (0.0-1.0); EOS # 0.1 10*3/uL (0.0-0.4); EOS % 1.7 % (1.0-4.0); HEMATOCRIT 38.7 % (42.0-52.0); LYMPH # 1.5 10*3/uL (1.3-4.4); LYMPH % 22.7 % (27.0-41.0); MEAN CELL VOLUME 100.8 fl (80.0-94.0); MEAN CORPUSCULAR HGB CONC 31.8 g/dl (33.0-37.0); MEAN PLATELET VOLUME 9.6 fl (9.6-12.3); MONO # 0.7 10*3/uL (0.1-1.0); NEUT # 4.2 10*3/uL (2.3-7.9); PLATELET COUNT AUTOMATED 163 10*3/uL (130-400); RED BLOOD COUNT 3.84 10*6/uL (4.50-5.90); RED CELL DISTRI WIDTH 13.8 % (0-14.5); WHITE BLOOD COUNT 6.5 10*3/uL (4.8-10.8)
[2020-05-20 06:51] LABS: BUN 5 mg/dl (7-24); CHLORIDE 114 mmol/L (98-107); CREATININE 0.55 mg/dL (0.70-1.30); POTASSIUM 3.8 mmol/L (3.5-5.1); SODIUM 143 mmol/L (136-145)
[2020-05-20 08:00] VITALS: BP 120/58
--- NOTE | 2020-05-20 11:03 | NUR ---
PHYSICAL THERAPY PT screen received. Pt admitted w near syncope,dizziness and heart palpitations. Please consult PT if pt has a decline in functional status below baseline. Ruben Perkins SPT Jessica Singleton PT
--- NOTE | 2020-05-20 13:00 | NUR ---
Discharge instructions reviewed with patient/family. Patient receptive and verbalizes understanding. Follow-up care arranged. Written instructions given to patient/family. HEPLOCK DISCONTINUED. HOME MEDICATIONS OBTAINED FROM PHARMACY. PT TAKEN OFF FLOOR VIA WHEELCHAIR. ISAI CAMPOS
--- NOTE | 2020-05-20 13:32 | NUR ---
Mainspring Strip Inspector in to talk to patient. Patient states lives at HOME with ALONE. There are NO steps in the home. Physician: NONE [facility]acy: [facility] Home health services: NONE Patient's level of ADLs: INDEPENDENT Patient has working utilities: YES DME: WALKER CANE AND SHOWER CHAIR Follow-up physician's appointment after d/c: STATES NO PCP AT THIS TIME Does patient want to access PORTAL?: NO Discharge plan PT LIVES AT HOME ALONE AND IS INDEPENDENT IN HIS CARE. DENIES HE WILL HAVE NEEDS ON DISCHARGE. PLAN IS TO RETURN HOME WHEN MEDICALLY STABLE. WILL CONTINUE TO FOLLOW. STATES HE WILL HAVE A RIDE HOME.. KEITH HOOVER
== END 2020-05-20 13:00 | disposition home or self-care (01) ==
LOC: ED 10:31 → EDHOLD 12:46 → 5E 12:46
PROVIDERS: Internal Medicine; Nurse Practitioner Family; ADMIT Student in an Organized Health Care Education/Training Program; ATTEND Student in an Organized Health Care Education/Training Program
DX: R42 Dizziness and giddiness (principal); R55 Syncope and collapse; R00.2 Palpitations; E87.2 Acidosis; F10.239 Alcohol dependence with withdrawal, unspecified; E44.0 Moderate protein-calorie malnutrition; K21.9 Gastro-esophageal reflux disease without esophagitis; D75.89 Other specified diseases of blood and blood-forming organs; I10 Essential (primary) hypertension; E87.8 Other disorders of electrolyte and fluid balance, not elsewhere classified; R06.82 Tachypnea, not elsewhere classified; E87.6 Hypokalemia; I48.91 Unspecified atrial fibrillation; F41.9 Anxiety disorder, unspecified; E55.9 Vitamin D deficiency, unspecified

== ENCOUNTER 2020-05-25 19:01 | Inpatient (IN) | payer OTHER ==
[~2020-05-25] VITALS: Ht 177.8 cm; Wt 58.2 kg
[2020-05-25 19:02] VITALS: BP 149/102
[2020-05-25 19:28] LABS: BILIRUBIN Negative (Negative); BLOOD Trace-Lysed (Negative); COLOR Yellow (Yellow); GLUCOSE Negative (Negative); KETONE Trace (Negative); LEUKO ESTERASE Negative (Negative); NITRITE Negative (Negative); SPECIFIC GRAVITY <= 1.005 (1.001-1.030); UROBILINOGEN 0.2 E.U./dl (0.0-1.0)
[2020-05-25 19:31] LABS: CLARITY Clear (Clear)
[2020-05-25 19:34] LABS: BASO % 0.4 % (0.0-1.0); EOS # 0.1 10*3/uL (0.0-0.4); EOS % 1.4 % (1.0-4.0); HEMATOCRIT 48.8 % (42.0-52.0); LYMPH # 2.4 10*3/uL (1.3-4.4); LYMPH % 42.7 % (27.0-41.0); MEAN CELL VOLUME 97.4 fl (80.0-94.0); MEAN CORPUSCULAR HGB 31.7 pg (27.0-31.0); MEAN CORPUSCULAR HGB CONC 32.6 g/dl (33.0-37.0); MEAN PLATELET VOLUME 9.6 fl (9.6-12.3); MONO # 0.5 10*3/uL (0.1-1.0); MONO % 8.5 % (3.0-9.0); NEUT # 2.6 10*3/uL (2.3-7.9); PLATELET COUNT AUTOMATED 200 10*3/uL (130-400); RED BLOOD COUNT 5.01 10*6/uL (4.50-5.90); RED CELL DISTRI WIDTH 13.6 % (0-14.5); WHITE BLOOD COUNT 5.5 10*3/uL (4.8-10.8)
[2020-05-25 19:38] LABS: BACTERIA TRACE; EPITHELIAL CELLS 0-2; RBC 0-2 rbc/hpf (0-2); WBC 0-2 wbc/hpf (0-5)
[2020-05-25 19:44] LABS: INTERNATIONAL NORM RATIO 0.9 (2.0-3.5)
[2020-05-25 19:52] LABS: ALBUMIN 3.3 gm/dl (3.1-4.5); ALKALINE PHOSPHATASE 99 U/L (45-117); BUN 3 mg/dl (7-24); CHLORIDE 105 mmol/L (98-107); CREATININE 0.59 mg/dL (0.70-1.30); POTASSIUM 3.8 mmol/L (3.5-5.1); SGOT/AST 70 IU/L (3-35); SGPT/ALT 39 U/L (12-78); SODIUM 138 mmol/L (136-145); TOTAL PROTEIN 7.2 gm/dL (6.4-8.2)
[2020-05-25 19:54] LABS: TROPONIN I < 0.015 ng/ml (<0.045)
[2020-05-25 22:23] VITALS: BP 104/76
[2020-05-25 22:35] VITALS: BP 137/74; BP 139/74
[2020-05-26 06:23] LABS: BASO % 0.2 % (0.0-1.0); EOS # 0.1 10*3/uL (0.0-0.4); EOS % 1.9 % (1.0-4.0); HEMATOCRIT 44.7 % (42.0-52.0); LYMPH # 1.8 10*3/uL (1.3-4.4); MEAN CELL VOLUME 98.2 fl (80.0-94.0); MEAN CORPUSCULAR HGB 31.6 pg (27.0-31.0); MEAN CORPUSCULAR HGB CONC 32.2 g/dl (33.0-37.0); MEAN PLATELET VOLUME 9.9 fl (9.6-12.3); MONO # 0.5 10*3/uL (0.1-1.0); MONO % 10.7 % (3.0-9.0); PLATELET COUNT AUTOMATED 162 10*3/uL (130-400); RED BLOOD COUNT 4.55 10*6/uL (4.50-5.90); RED CELL DISTRI WIDTH 13.7 % (0-14.5); WHITE BLOOD COUNT 4.3 10*3/uL (4.8-10.8)
[2020-05-26 06:36] LABS: BUN 4 mg/dl (7-24); CHLORIDE 110 mmol/L (98-107); CREATININE 0.56 mg/dL (0.70-1.30); POTASSIUM 3.9 mmol/L (3.5-5.1); SODIUM 143 mmol/L (136-145)
[2020-05-26 08:00] VITALS: BP 125/71
[2020-05-26 12:00] VITALS: BP 99/62
[2020-05-26 16:00] VITALS: BP 103/60
[2020-05-26 20:00] VITALS: BP 145/86
[2020-05-27] VITALS: BP 112/60
[2020-05-27 08:00] VITALS: BP 123/74
== END 2020-05-27 12:30 | disposition home health service (06) | DRG 775 ==
LOC: ED 19:01 → 5E 21:05 → EDHOLD 21:05 → 5E 21:37
PROVIDERS: Physician Assistant; Student in an Organized Health Care Education/Training Program; ADMIT Student in an Organized Health Care Education/Training Program; ATTEND Student in an Organized Health Care Education/Training Program
DX: F10.239 Alcohol dependence with withdrawal, unspecified (principal); E87.2 Acidosis; E44.0 Moderate protein-calorie malnutrition; K21.9 Gastro-esophageal reflux disease without esophagitis; R00.0 Tachycardia, unspecified; D72.810 Lymphocytopenia; F17.210 Nicotine dependence, cigarettes, uncomplicated; I48.91 Unspecified atrial fibrillation; J43.9 Emphysema, unspecified; I10 Essential (primary) hypertension; E55.9 Vitamin D deficiency, unspecified; Z71.6 Tobacco abuse counseling; Z82.49 Family history of ischemic heart disease and other diseases of the circulatory system; Z82.0 Family history of epilepsy and other diseases of the nervous system; Z79.82 Long term (current) use of aspirin; Z79.899 Other long term (current) drug therapy; Z68.1 Body mass index [BMI] 19.9 or less, adult

== ENCOUNTER 2020-06-03 17:21 | Inpatient (IN) | payer OTHER ==
[~2020-06-03] VITALS: Ht 172.7 cm; Wt 56.9 kg
[2020-06-03 17:26] VITALS: BP 148/72
[2020-06-03 18:22] LABS: BASO % 0.2 % (0.0-1.0); EOS % 0.2 % (1.0-4.0); HEMATOCRIT 42.9 % (42.0-52.0); LYMPH # 0.8 10*3/uL (1.3-4.4); LYMPH % 14.8 % (27.0-41.0); MEAN CELL VOLUME 94.5 fl (80.0-94.0); MEAN CORPUSCULAR HGB 31.3 pg (27.0-31.0); MEAN CORPUSCULAR HGB CONC 33.1 g/dl (33.0-37.0); MEAN PLATELET VOLUME 10.9 fl (9.6-12.3); MONO # 0.8 10*3/uL (0.1-1.0); MONO % 14.1 % (3.0-9.0); NEUT # 3.9 10*3/uL (2.3-7.9); NEUT % 70.5 % (47.0-73.0); RED BLOOD COUNT 4.54 10*6/uL (4.50-5.90); RED CELL DISTRI WIDTH 13.2 % (0-14.5); WHITE BLOOD COUNT 5.6 10*3/uL (4.8-10.8)
[2020-06-03 18:36] LABS: ALBUMIN 3.1 gm/dl (3.1-4.5); ALKALINE PHOSPHATASE 103 U/L (45-117); BUN 5 mg/dl (7-24); CHLORIDE 100 mmol/L (98-107); CPK 42 U/L (39-308); POTASSIUM 3.5 mmol/L (3.5-5.1); SGOT/AST 117 IU/L (3-35); SGPT/ALT 64 U/L (12-78); SODIUM 135 mmol/L (136-145); TOTAL PROTEIN 6.8 gm/dL (6.4-8.2)
[2020-06-03 18:38] LABS: ACT PARTIAL THROMBO TIME 26.7 SECONDS (20.0-32.1); INTERNATIONAL NORM RATIO 0.9 (2.0-3.5)
[2020-06-03 18:42] LABS: ETHYL ALCOHOL < 3.0 mg/dl (<3); TROPONIN I < 0.015 ng/ml (<0.045)
[2020-06-03 19:45] LABS: BILIRUBIN Negative (Negative); BLOOD Negative (Negative); CLARITY Clear (Clear); COLOR Dark Yellow (Yellow); GLUCOSE Negative (Negative); KETONE 3+ (Negative); LEUKO ESTERASE Trace (Negative); NITRITE Negative (Negative)
[2020-06-03 19:51] LABS: URINE AMPHETAMINES < 1000 (1000ng/ml); URINE BARBITURATES < 200 (200ng/ml); URINE BENZODIAZEPINES > 200 (200ng/ml); URINE CANNABINOIDS (THC) < 50 (50ng/ml); URINE COCAINE < 300 (300ng/ml); URINE METHADONE < 300 (300ng/ml); URINE OPIATES < 300 (300ng/ml)
[2020-06-03 19:54] VITALS: BP 127/77
[2020-06-03 19:54] LABS: PH >= 9.0 (4.5-8.0)
--- NOTE | 2020-06-03 19:55 | NUR ---
PT DENIES WOUNDS AT THIS TIME. NO VISIBLE WOUNDS FOUND. PT HAD NO WOUNDS WHEN ADMITTED ON 05/25/20.
[2020-06-03 19:56] LABS: URINE PHENCYCLIDINE < 25 (25ng/ml)
[2020-06-03 20:00] VITALS: BP 144/91
--- NOTE | 2020-06-03 20:00 | NUR ---
A 55, admitted to 5E, under the services of VALERIE Land DO with a diagnosis of GENERALIZED WEAKNESS. Chief complaint is WEAKNESS. Patient arrived via bed from ER. Monitor applied. Initial assessment completed. Vital signs taken and recorded. VALERIE LAND DO notified of admission to the unit. Orders received. See assessment for past medical history, medications and allergies. Patient and/or family oriented to unit. [address] visitation policy reviewed. Clothing/patient valuable form completed. ALVARO HURLEY
[2020-06-03 20:04] LABS: BACTERIA TRACE; EPITHELIAL CELLS 0-2; RBC 0-2 rbc/hpf (0-2)
[2020-06-03 20:13] LABS: PLATELET COUNT AUTOMATED 124 10*3/uL (130-400)
[2020-06-03 21:14] VITALS: BP 144/91
[2020-06-04] VITALS: BP 120/69
[2020-06-04 05:59] LABS: BUN 4 mg/dl (7-24); CHLORIDE 106 mmol/L (98-107); CREATININE 0.43 mg/dL (0.70-1.30); POTASSIUM 3.2 mmol/L (3.5-5.1); SODIUM 139 mmol/L (136-145)
[2020-06-04 06:14] LABS: BASO % 0.2 % (0.0-1.0); EOS # 0.1 10*3/uL (0.0-0.4); EOS % 1.7 % (1.0-4.0); LYMPH # 1.5 10*3/uL (1.3-4.4); LYMPH % 31.9 % (27.0-41.0); MEAN CELL VOLUME 95.5 fl (80.0-94.0); MEAN CORPUSCULAR HGB 31.2 pg (27.0-31.0); MEAN CORPUSCULAR HGB CONC 32.6 g/dl (33.0-37.0); MEAN PLATELET VOLUME 11.2 fl (9.6-12.3); MONO # 0.8 10*3/uL (0.1-1.0); MONO % 16.6 % (3.0-9.0); NEUT # 2.4 10*3/uL (2.3-7.9); NEUT % 49.4 % (47.0-73.0); PLATELET COUNT AUTOMATED 109 10*3/uL (130-400); RED BLOOD COUNT 3.98 10*6/uL (4.50-5.90); RED CELL DISTRI WIDTH 13.2 % (0-14.5); WHITE BLOOD COUNT 4.8 10*3/uL (4.8-10.8)
[2020-06-04 08:00] VITALS: BP 138/81
--- NOTE | 2020-06-04 09:05 | NUR ---
PHYSICAL THERAPY Physical Therapy evaluation completed on 5th floor with full evaluation to follow. Recommend physical therapy per plan of care and SNF upon discharge. Thank you for this referral. Jessica Singleton PT
--- NOTE | 2020-06-04 10:33 | NUR ---
PRECERT IS REQUIRED FOR SNF PLACEMENT. PER COMPANY LAUNDRY WORKER KEITH PATIENT IS REQUESTING REFERRAL TO [facility]. SENIOR DIRECTOR OF STRATEGY FAXED REFERRAL TO [facility] FOR REVIEW. COVID IS PENDING.
--- NOTE | 2020-06-04 11:37 | NUR ---
Warp Knitting Machine Operator in to talk to patient. Patient states lives at HOME with ALONE. There are NO steps in the home. Physician: NONE PREFERS TO FIND OWN [facility]acy: [facility] Home health services: [facility] Patient's level of ADLs: MINIMAL ASSIST Patient has working utilities: YES DME: WHEEL CHAIR Follow-up physician's appointment after d/c: Does patient want to access PORTAL?: NO Discharge plan PT LIVES AT HOME ALONE AND NEED MINIMAL ASSISTANCE WITH ADLS.PT STATES HE HAS SOMEONE WHO CLEANS HIS HOUSE AND GETS HIS GROCERIES. PT HAS MULTLIBLE ADMISSION TO [facility] AND NOW IS AGREEING TO A SNF PLACEMENT. REFERRAL WAS SENT TO PT CHOICE OF [facility]. WILL CONTINUE TO FOLLOW. WILL HAVE A RIDE HOME.. KEITH HOOVER
[2020-06-04 12:00] VITALS: BP 112/60
[2020-06-04 16:00] VITALS: BP 127/83
[2020-06-04 20:00] VITALS: BP 124/70
--- NOTE | 2020-06-04 20:00 | NUR ---
RESTING IN BED; AROUSES EASILY TO VERBAL STIMULI. VOICES NO C/O AT THIS TIME; CALL LIGHT WITHIN REACH.
[2020-06-05] VITALS: BP 119/79
--- NOTE | 2020-06-05 | NUR ---
RESTING IN BED WITH EYES CLOSED; CALL LIGHT WITHIN REACH; BED ALARM ON.
--- NOTE | 2020-06-05 04:20 | NUR ---
IV FLUIDS COMPLETED; PT. HEP LOCKED. CALL LIGHT WITHIN REACH; BED ALARM ON.
--- NOTE | 2020-06-05 06:00 | NUR ---
MEDICATED WITH ATIVAN PER STRAIGHT ORDER. PT. VOICES NO C/O AT THIS TIME. CALL LIGHT WITHIN REACH; BED ALARM ON.
[2020-06-05 08:00] VITALS: BP 142/76
--- NOTE | 2020-06-05 09:18 | NUR ---
INFORMED PT THAT WE WERE WAITING ON ACCEPTANCE TO [facility] AND ASKED HIM IF DENIED IF HE WOULD LIKE REFERRED TO ANOTHER FACILITY. PT DENIES TO GIVE ANOTHER FACILITY. STATES HE HAS BEEN TO [facility] 3 OTHER TIMES AND THEY TREATED HIM WELL.
[2020-06-05 12:00] VITALS: BP 133/79
--- NOTE | 2020-06-05 12:17 | NUR ---
CAR REFINISHER SENT UPDATES TO [facility]. AWAITING UPDATED PT/OT NOTES. STILL AWAITING ACCEPTANCE.
--- NOTE | 2020-06-05 12:19 | NUR ---
[facility] ACCEPTED THE PATIENT. PRECERT HAS BEEN STARTED.
--- NOTE | 2020-06-05 13:45 | NUR ---
OT NOTE Pt was seen this P.M. 1:1 for 15 minute OT session. Upon arrival pt was supine in bed. Pt identified by name and and had complaints of generalized weakness and fatigue. Pt transferred supine to sit EOB with SBA. Sit to stand completed from bed level with CGA and use of w/w for UE support. Functional mobility completed to the bathroom with CGA and use of w/w. There he transferred on/off standard commode with CGA. While in tight spaces pt required verbal prompts for walker safety and navigation, pt presented with fair carry over. Functional mobility completed back to the EOB due to pt reporting quick onset of fatigue. He then declined all other tasks at this time due to fatigue. Pt transferred sit to supine with SBA where he was left with call light in hand, tray table in place, and bed alarm activated for safety. Continue with rec D/C plan to SNF. KATHRIN Schultz/Carroll
--- NOTE | 2020-06-05 14:15 | NUR ---
PRECERT IS PENDING. BAIL BONDSMAN COMPLETED HENS.
--- NOTE | 2020-06-05 15:01 | NUR ---
PRECERT HAS BEEN OBTAINED. PATIENT CAN BE DISCHARGED TO [facility] TODAY. RN HOSPITALIST COORDINATOR SIM IS AWARE.
[2020-06-05] MEDS ORDERED: ATARAX,VISTARIL50 MG PO (15:08)
--- NOTE | 2020-06-05 15:23 | NUR ---
PATIENT DISCHARGED TO [facility].
--- NOTE | 2020-06-05 15:26 | NUR ---
PHYSICAL THERAPY Patient presented to therapy in supine with head of bed elevated no complaints. Patient supine to sit with SBA. Patient STS from [facility] with SBA. Patient ambulated with Walker and CGA for 20' x 2 with no LOB. PATIENT IS CGA-SBA STS from [facility]. Patient transferred back to supine in bed with SBA. Patient was left in supine in bed with head of bed elevated. Patient call light left within reach and bed alarm on. BOLIVAR ROBLES PAPER STRIPPER
--- NOTE | 2020-06-05 15:31 | NUR ---
BRIDGE PAINTER HELPER NOTIFIED OF PATIENT DISCHARGE. BRIDGE PAINTER HELPER SPOKE WITH DAVID CUNNINGHAM. BRIDGE PAINTER HELPER SPOKE WITH [facility] TRANSPORTATION IS NOT AVAILABLE. BRIDGE PAINTER HELPER ATTEMPTED TO CALL PATIENTS SISTER AND LEFT A MESSAGE ASKING FOR A RETURN CALL TO OR . BRIDGE PAINTER HELPER SPOKE WITH THE PATIENT WHO STATED HE DOES NOT HAVE A RIDE. BRIDGE PAINTER HELPER CONTACTED PATIENTS [employer] FOR TRANSPORTATION [phone]. TRANSPORTION IS SET COULD BE 3 TO 4 HOURS BEFORE TRANSPORT GETS HERE CONF#[phone]. BRIDGE PAINTER HELPER NOTIFIED NICOLASA, [facility], AND THE PATIENT. BRIDGE PAINTER HELPER TO FAX DISCHARGE ORDERS TO [facility].
--- NOTE | 2020-06-05 17:32 | NUR ---
PATIENT INSURANCE CAME AND PICKED UP TO TRANSPORT TO [facility].
--- NOTE | 2020-06-05 17:35 | NUR ---
NURSE TO NURSE REPORT GIVEN.
--- NOTE | 2020-06-06 08:07 | NUR ---
PHYSICAL THERAPY CO-SIGN I approve of the Physical Therapy notes written above. Jessica Singleton PT
--- NOTE | 2020-06-06 12:28 | NUR ---
OCCUPATIONAL THERAPY CO-SIGN I approve of the Occupational Therapy notes written above. VINCENZO QUINTERO, OTR/L
== END 2020-06-05 17:32 | disposition other institution (70) | DRG 422 ==
LOC: ED 17:21 → 5E 18:55 → EDHOLD 18:55 → 5E 19:21
PROVIDERS: Emergency Medicine; Internal Medicine; ADMIT Internal Medicine; ATTEND Internal Medicine
DX: E86.0 Dehydration (principal); R65.10 Systemic inflammatory response syndrome (SIRS) of non-infectious origin without acute organ dysfunction; D69.6 Thrombocytopenia, unspecified; J44.9 Chronic obstructive pulmonary disease, unspecified; I48.91 Unspecified atrial fibrillation; R26.2 Difficulty in walking, not elsewhere classified; R73.9 Hyperglycemia, unspecified; I10 Essential (primary) hypertension; F10.29 Alcohol dependence with unspecified alcohol-induced disorder; K21.9 Gastro-esophageal reflux disease without esophagitis; F41.9 Anxiety disorder, unspecified; Z20.828 Contact with and (suspected) exposure to other viral communicable diseases; F17.210 Nicotine dependence, cigarettes, uncomplicated; Z82.49 Family history of ischemic heart disease and other diseases of the circulatory system; Z82.0 Family history of epilepsy and other diseases of the nervous system; Z79.82 Long term (current) use of aspirin; Z79.899 Other long term (current) drug therapy

== ENCOUNTER 2020-07-02 03:41 | Inpatient (IN) | payer OTHER ==
[~2020-07-02] VITALS: Ht 177.8 cm; Wt 56.7 kg
[~2020-07-02 03:41] MED LIST changes: +ATARAX,VISTARIL50 MG PO
[2020-07-02 03:45] VITALS: BP 134/77
[2020-07-02 04:53] LABS: BASO % 0.1 % (0.0-1.0); EOS # 0.1 10*3/uL (0.0-0.4); EOS % 0.8 % (1.0-4.0); HEMATOCRIT 40.9 % (42.0-52.0); LYMPH # 1.3 10*3/uL (1.3-4.4); LYMPH % 15.8 % (27.0-41.0); MEAN CELL VOLUME 92.3 fl (80.0-94.0); MEAN CORPUSCULAR HGB 30.9 pg (27.0-31.0); MEAN CORPUSCULAR HGB CONC 33.5 g/dl (33.0-37.0); MEAN PLATELET VOLUME 10.3 fl (9.6-12.3); MONO % 11.9 % (3.0-9.0); PLATELET COUNT AUTOMATED 117 10*3/uL (130-400); RED BLOOD COUNT 4.43 10*6/uL (4.50-5.90); RED CELL DISTRI WIDTH 13.2 % (0-14.5); WHITE BLOOD COUNT 8.5 10*3/uL (4.8-10.8)
[2020-07-02 05:12] LABS: ALBUMIN 3.1 gm/dl (3.1-4.5); ALKALINE PHOSPHATASE 94 U/L (45-117); BUN 8 mg/dl (7-24); CHLORIDE 97 mmol/L (98-107); CREATININE 0.62 mg/dL (0.70-1.30); SGOT/AST 35 IU/L (3-35); SGPT/ALT 29 U/L (12-78); SODIUM 133 mmol/L (136-145); TOTAL PROTEIN 6.5 gm/dL (6.4-8.2)
[2020-07-02 05:16] LABS: POTASSIUM 2.4 mmol/L (3.5-5.1); TROPONIN I < 0.015 ng/ml (<0.045)
[2020-07-02 05:56] LABS: BILIRUBIN 1+ (Negative); BLOOD Negative (Negative); CLARITY Clear (Clear); COLOR Orange (Yellow); GLUCOSE Negative (Negative); KETONE Trace (Negative); LEUKO ESTERASE 1+ (Negative); NITRITE Negative (Negative); PH 6.5 (4.5-8.0)
--- NOTE | 2020-07-02 07:20 | NUR ---
RESTING QUIETLY IN NO DISTRESS. CALL LIGHT IN REACH. BREAKFAST ORDERED.
[2020-07-02 07:21] VITALS: BP 136/74
--- NOTE | 2020-07-02 08:15 | NUR ---
K RUN RATE DECREASED D/T PT NOT BEING ABLE TOLERATE BURNING.
--- NOTE | 2020-07-02 08:52 | NUR ---
K-RUN DECREASED AGAIN HE IS STILL UNABLE TO TOLERATE BURNING.
--- NOTE | 2020-07-02 09:00 | NUR ---
case management received a call from Gianna from [employer] regarding patient. she stated patient is under their services at home and they have been working with [facility] and the patient's insurance company to place patient at [facility] . she stated he was a patient at [facility] last month and signed himself out early. He went home and was not able to care for himself. Gianna stated insurance precert was obtained last week and patient had until Wednesday to go into the nursing facility, but never showed up, instead he came to the hospital. he now will be referred for placement to [facility]. covid is pending. finished goods planner has been in contact with [facility] and the are willing to accept patient. finished goods planner will work on this discharge, case management will follow
--- NOTE | 2020-07-02 09:15 | NUR ---
RESTING IN NO DISTRESS. CALL LIGHT IN REACH.
[2020-07-02 09:40] VITALS: BP 148/80
--- NOTE | 2020-07-02 11:05 | NUR ---
RESTING QUIETLY WITH EYES CLOSED. RESPS ARE EASY AND NON LABORED.
[2020-07-02] MEDS ORDERED: POTASSIUM CHLO20 ME3 PO ×2 (11:08→14:39)
[2020-07-02] MEDS ORDERED: SERTRALINE HYDR50 MG PO (11:09)
[2020-07-02] MEDS ORDERED: PHARMASSURE FO0.4 MG PO (11:09)
[2020-07-02 12:00] VITALS: BP 142/72
--- NOTE | 2020-07-02 14:15 | NUR ---
Time: 1414 A 55 year old MALE admitted to 5E under services of ALFONSO VAZQUEZ DO. Pt. arrived via wheel chair from ER. Chief complaint: WEAKNESS. MAUREEN VIDAL
[2020-07-02] MEDS ORDERED: K-TAB20 MEQ PO (14:33)
[2020-07-02] MEDS ORDERED: COREG6.25 MG PO (14:34)
[2020-07-02] MEDS ORDERED: COREG3.125 MG PO (14:37)
[2020-07-02 16:00] VITALS: BP 160/76
[2020-07-02 20:00] VITALS: BP 145/64
--- NOTE | 2020-07-02 20:00 | NUR ---
RESTING IN BED WITH NO ACUTE DISTRESS NOTED. RESPIRATIONS EASY. LUNGS DIMINISHED, CLEAR. PULE OX 99% RA. CALL LIGHT WITHIN REACH. NO VOICED COMPLAINTS
--- NOTE | 2020-07-02 21:53 | NUR ---
MEDICATED WITH ROUTINE ATIVAN AND PRN RESTORIL TO ASSIST WITH ALCOHOL WITHDRAWALS AND SLEEP. WILL MONITOR
--- NOTE | 2020-07-02 22:30 | NUR ---
MEDS EFFECTIVE. SLEEPING
[2020-07-03] VITALS: BP 128/67
--- NOTE | 2020-07-03 | NUR ---
SLEEPING. NO DISTRESS NOTED. RESPIRATIONS EASY. VSS. CALL LIGHT WITHIN REACH
--- NOTE | 2020-07-03 04:43 | NUR ---
24 HR chart check completed.
--- NOTE | 2020-07-03 06:00 | NUR ---
SLEPT THROUGHOUT NIGHT WITH NO DISTRESS NOTED. RESPIRATIONS EASY. CALL LIGHT WITHIN REACH. NO VOICED COMPLAINTS THIS SHIFT
[2020-07-03 06:24] LABS: BASO % 0.2 % (0.0-1.0); EOS # 0.1 10*3/uL (0.0-0.4); EOS % 1.8 % (1.0-4.0); HEMATOCRIT 37.3 % (42.0-52.0); LYMPH # 1.4 10*3/uL (1.3-4.4); LYMPH % 20.9 % (27.0-41.0); MEAN CORPUSCULAR HGB 30.8 pg (27.0-31.0); MEAN CORPUSCULAR HGB CONC 32.2 g/dl (33.0-37.0); MONO # 0.7 10*3/uL (0.1-1.0); MONO % 10.5 % (3.0-9.0); NEUT # 4.4 10*3/uL (2.3-7.9); NEUT % 66.3 % (47.0-73.0); PLATELET COUNT AUTOMATED 94 10*3/uL (130-400); RED BLOOD COUNT 3.89 10*6/uL (4.50-5.90); RED CELL DISTRI WIDTH 13.5 % (0-14.5); WHITE BLOOD COUNT 6.7 10*3/uL (4.8-10.8)
[2020-07-03 06:28] LABS: MEAN CELL VOLUME 95.9 fl (80.0-94.0)
[2020-07-03 06:35] LABS: BUN 4 mg/dl (7-24); CHLORIDE 110 mmol/L (98-107); CREATININE 0.55 mg/dL (0.70-1.30); SODIUM 139 mmol/L (136-145)
[2020-07-03 06:37] LABS: POTASSIUM 3.9 mmol/L (3.5-5.1)
--- NOTE | 2020-07-03 07:53 | NUR ---
PHYSICAL THERAPY Screen and PT eval received will follow thank you Jessica Singleton PT
[2020-07-03 08:00] VITALS: BP 128/72
--- NOTE | 2020-07-03 08:30 | NUR ---
INSURANCE AGENCY SALES MANAGER FAXED REFERRAL TO [facility] FOR REVIEW.
--- NOTE | 2020-07-03 08:41 | NUR ---
FLOORS BUFFER COMPLETED HENS.
[2020-07-03 12:00] VITALS: BP 130/69
--- NOTE | 2020-07-03 12:14 | NUR ---
APPLIANCE INSTALLER FAXED PT/OT EVALS TO [facility] FOR REVIEW.
[2020-07-03 16:00] VITALS: BP 141/72
[2020-07-03 20:00] VITALS: BP 130/71
[2020-07-04] VITALS: BP 134/71
[2020-07-04 06:24] LABS: BUN 3 mg/dl (7-24); CHLORIDE 108 mmol/L (98-107); CREATININE 0.41 mg/dL (0.70-1.30); SODIUM 141 mmol/L (136-145)
[2020-07-04 06:29] LABS: BASO % 0.1 % (0.0-1.0); EOS # 0.1 10*3/uL (0.0-0.4); EOS % 1.8 % (1.0-4.0); HEMATOCRIT 37.3 % (42.0-52.0); LYMPH # 1.3 10*3/uL (1.3-4.4); LYMPH % 17.6 % (27.0-41.0); MEAN CELL VOLUME 94.9 fl (80.0-94.0); MEAN CORPUSCULAR HGB CONC 32.7 g/dl (33.0-37.0); MEAN PLATELET VOLUME 11.1 fl (9.6-12.3); MONO # 0.8 10*3/uL (0.1-1.0); MONO % 10.5 % (3.0-9.0); NEUT % 69.6 % (47.0-73.0); PLATELET COUNT AUTOMATED 84 10*3/uL (130-400); RED BLOOD COUNT 3.93 10*6/uL (4.50-5.90); RED CELL DISTRI WIDTH 13.1 % (0-14.5); WHITE BLOOD COUNT 7.2 10*3/uL (4.8-10.8)
[2020-07-04 08:00] VITALS: BP 150/78
--- NOTE | 2020-07-04 08:29 | NUR ---
OT NOTE Pt was seen this A.M. 1:1 for 19 minute OT session. Upon arrival pt was supine in bed. Pt identified by name and and had complaints of "extreme fatigue and weakness" pt reported that his weakness was global. Pt transferred supine to sit EOB with SBA. While sitting EOB pt donned B socks with SBA while using compensatory technique of bringing his leg up to knee level. Sit to stand completed from bed level with CGA for safety and use of w/w for UE support. Challenged pt's static standing tolerance needed for increased I in self care tasks, transfers, and enhanced endurance. Pt was able to tolerate aprox 90 seconds at a time before sitting due to fatigue. After a seated rest break sit to stand completed from bed level CGA and use of w/w followed by functional mobility to the bathroom with CGA and use of w/w. Throughout pt presented with bouts of unsteady stance that required Rachael to correct, one standing rest break, and poor walker safety. Pt was educated on safety with walker and general safety awareness. Pt transferred on to the standard commode with Rachael due to poor safety with alignment. Clothing management completed with CGA for safety. Pt then transferred off standard commode with CGA and use of w/w. Functional mobility completed back to the EOB with CGA and use of w/w. Upon arrival to the EOB pt required Rachael to sit EOB due to being impulsive and sitting before safe. After toileting task pt reported "that took it all out of me" and requested to lay back into bed. Pt transferred sit to supine with SBA. There he was left with call light in hand, tray table in place, and bed alarm activated for safety. Continue with POC as able. KATHRIN Schultz/Carroll
--- NOTE | 2020-07-04 08:30 | NUR ---
Patient resting quietly with no c/o discomfort. Respirations easy and regular. Vital signs stable. No overt distress. KATRIN FREITAS R
--- NOTE | 2020-07-04 10:50 | NUR ---
PHYSICAL THERAPY Patient presented to therapy in supine in bed with head of bed flat and bed alarm off. Patient has no spO2, no catheter, and no IVs. Patient gives informed consent for treatment. Patient was identified by name and on wristband. Patient performed supine to sitting on EOB with SBA. Patient sat on EOB with SBA. Patient performed STS from EOB with SBA. Patient ambulated with Wh Walker and Close Supervision for 30' x 1 with no LOB , SOB or other difficulty. Patient performed transferred back to supine in bed with SBA. Patient was left supine in bed with head of flat and call light within reach. Patient was 1:1 with this FAMILY NURSE PRACTITIONER for 12 minutes total. BOLIVAR ROBLES FAMILY NURSE PRACTITIONER
--- NOTE | 2020-07-04 11:00 | NUR ---
PATIENTS COVID RESULTS ARE BACK PATIENT CAN ADMIT TO [facility] TODAY IF MEDICALLY STABLE.
[2020-07-04 12:00] VITALS: BP 150/74
--- NOTE | 2020-07-04 12:07 | NUR ---
Received call from Gianna at [facility] to check on how patient is doing. Informed patient has been referred to [facility] and possibly will be discharged today. Discussed K of 3 and he is walking better with a walker today but still feels weak. She will call again tomorrow to see if patient was discharged.
[2020-07-04 16:00] VITALS: BP 123/68
[2020-07-04] MEDS ORDERED: VITAMIN B-1100 M1 PO (16:35)
[2020-07-04] MEDS ORDERED: SERTRALINE HYDR50 MG PO (16:35)
[2020-07-04] MEDS ORDERED: POTASSIUM CHLO20 ME3 PO (16:35)
--- NOTE | 2020-07-04 17:30 | NUR ---
[facility] CALL[facility] RE: DISCHARGE. STAFF STATES HE'S OK TO COME TODAY.
--- NOTE | 2020-07-04 18:20 | NUR ---
COVID SWAB FAXED TO [facility] PER REQUEST. FAX RECEIVED AND STAFF STATES HE IS OK TO COME.
--- NOTE | 2020-07-04 18:22 | NUR ---
Discharge instructions reviewed with patient/family. Patient receptive and verbalizes understanding. Follow-up care arranged. Written instructions given to patient/family. KATRIN FREITAS
--- NOTE | 2020-07-05 07:41 | NUR ---
PHYSICAL THERAPY CO-SIGN I approve of the Physical Therapy notes written above. Jessica Singleton PT
--- NOTE | 2020-07-05 07:41 | NUR ---
OCCUPATIONAL THERAPY CO-SIGN I approve of the Occupational Therapy notes written above. VINCENZO QUINTERO, OTR/L
--- NOTE | 2020-07-05 08:36 | NUR ---
[facility] REQUESTED THAT COVID RESULTS BE SENT OVER TO HER [facility] NEVER RECEIVED THEM. GRAIN COMBINE DRIVER EMAILED RESULTS TO HER.
== END 2020-07-04 18:22 | disposition other institution (70) | DRG 775 ==
LOC: ED 03:41 → EDHOLD 06:38 → 5E 06:38
PROVIDERS: Emergency Medicine; Hospitalist; Internal Medicine; ADMIT Internal Medicine; ATTEND Internal Medicine
DX: F10.232 Alcohol dependence with withdrawal with perceptual disturbance (principal); K21.9 Gastro-esophageal reflux disease without esophagitis; J44.9 Chronic obstructive pulmonary disease, unspecified; I48.91 Unspecified atrial fibrillation; R26.2 Difficulty in walking, not elsewhere classified; R53.1 Weakness; D69.6 Thrombocytopenia, unspecified; R73.9 Hyperglycemia, unspecified; E87.6 Hypokalemia; D64.9 Anemia, unspecified; E87.1 Hypo-osmolality and hyponatremia; E83.51 Hypocalcemia; I10 Essential (primary) hypertension; E80.6 Other disorders of bilirubin metabolism; E44.0 Moderate protein-calorie malnutrition; F41.9 Anxiety disorder, unspecified; Z20.828 Contact with and (suspected) exposure to other viral communicable diseases; F17.210 Nicotine dependence, cigarettes, uncomplicated; Z71.6 Tobacco abuse counseling; Z82.0 Family history of epilepsy and other diseases of the nervous system; Z82.49 Family history of ischemic heart disease and other diseases of the circulatory system; Z79.82 Long term (current) use of aspirin; Z79.899 Other long term (current) drug therapy; Z68.1 Body mass index [BMI] 19.9 or less, adult

== ENCOUNTER 2020-08-28 15:47 | Inpatient (IN) | payer OTHER ==
[~2020-08-28] VITALS: Ht 177.8 cm; Wt 62.8 kg
[~2020-08-28 15:47] MED LIST changes: +PHARMASSURE FO0.4 MG PO; +SERTRALINE HYDR50 MG PO
[2020-08-28 15:48] VITALS: BP 146/74
[2020-08-28 16:27] LABS: BASO % 0.1 % (0.0-1.0); EOS % 0.1 % (1.0-4.0); HEMATOCRIT 40.7 % (42.0-52.0); LYMPH # 1.5 10*3/uL (1.3-4.4); LYMPH % 15.3 % (27.0-41.0); MEAN CELL VOLUME 89.5 fl (80.0-94.0); MEAN CORPUSCULAR HGB 29.2 pg (27.0-31.0); MEAN CORPUSCULAR HGB CONC 32.7 g/dl (33.0-37.0); MEAN PLATELET VOLUME 9.4 fl (9.6-12.3); MONO # 0.9 10*3/uL (0.1-1.0); MONO % 9.6 % (3.0-9.0); NEUT # 7.3 10*3/uL (2.3-7.9); NEUT % 74.8 % (47.0-73.0); PLATELET COUNT AUTOMATED 235 10*3/uL (130-400); RED BLOOD COUNT 4.55 10*6/uL (4.50-5.90); RED CELL DISTRI WIDTH 12.9 % (0-14.5); WHITE BLOOD COUNT 9.8 10*3/uL (4.8-10.8)
[2020-08-28 16:31] VITALS: BP 160/77
[2020-08-28 16:42] LABS: ALBUMIN 4.2 gm/dl (3.1-4.5); ALKALINE PHOSPHATASE 92 U/L (45-117); BUN 14 mg/dl (7-24); CHLORIDE 98 mmol/L (98-107); LIPASE 170 U/L (73-393); POTASSIUM 3.3 mmol/L (3.5-5.1); SGOT/AST 32 IU/L (3-35); SGPT/ALT 31 U/L (12-78); SODIUM 135 mmol/L (136-145); TOTAL PROTEIN 8.4 gm/dL (6.4-8.2)
[2020-08-28 16:46] LABS: TROPONIN I < 0.015 ng/ml (<0.045)
[2020-08-28 19:28] LABS: BILIRUBIN Negative (Negative); BLOOD Negative (Negative); CLARITY Clear (Clear); COLOR Dark Yellow (Yellow); GLUCOSE Negative (Negative); KETONE 1+ (Negative); LEUKO ESTERASE Trace (Negative); NITRITE Negative (Negative); SPECIFIC GRAVITY 1.025 (1.001-1.030)
[2020-08-28 19:48] LABS: PH >= 9.0 (4.5-8.0)
[2020-08-28 20:00] VITALS: BP 150/72
[2020-08-28 20:18] LABS: BACTERIA TRACE
[2020-08-28 21:05] VITALS: BP 150/72
[2020-08-28 22:00] VITALS: BP 150/72
[2020-08-29 00:16] VITALS: BP 116/60
[2020-08-29] MEDS ORDERED: GABAPENTIN100 M2 PO ×2 (01:03→14:03)
[2020-08-29] MEDS ORDERED: FLOMAX0.4 MG PO (01:04)
[2020-08-29] MEDS ORDERED: ZOLOFT50 MG PO (01:04)
[2020-08-29] MEDS ORDERED: PHARMASSURE FO0.4 MG PO (01:05)
[2020-08-29 06:59] LABS: BASO % 0.3 % (0.0-1.0); EOS # 0.1 10*3/uL (0.0-0.4); HEMATOCRIT 32.9 % (42.0-52.0); LYMPH # 1.6 10*3/uL (1.3-4.4); LYMPH % 22.9 % (27.0-41.0); MEAN CELL VOLUME 91.1 fl (80.0-94.0); MEAN CORPUSCULAR HGB 29.6 pg (27.0-31.0); MEAN CORPUSCULAR HGB CONC 32.5 g/dl (33.0-37.0); MEAN PLATELET VOLUME 9.5 fl (9.6-12.3); MONO # 0.8 10*3/uL (0.1-1.0); MONO % 11.5 % (3.0-9.0); NEUT # 4.6 10*3/uL (2.3-7.9); PLATELET COUNT AUTOMATED 176 10*3/uL (130-400); RED BLOOD COUNT 3.61 10*6/uL (4.50-5.90); WHITE BLOOD COUNT 7.2 10*3/uL (4.8-10.8)
[2020-08-29 07:15] LABS: ALBUMIN 3.1 gm/dl (3.1-4.5); ALKALINE PHOSPHATASE 64 U/L (45-117); BUN 8 mg/dl (7-24); CHLORIDE 107 mmol/L (98-107); CREATININE 0.68 mg/dL (0.70-1.30); POTASSIUM 3.6 mmol/L (3.5-5.1); SGOT/AST 36 IU/L (3-35); SGPT/ALT 29 U/L (12-78); SODIUM 138 mmol/L (136-145); TOTAL PROTEIN 6.3 gm/dL (6.4-8.2)
[2020-08-29 08:00] VITALS: BP 137/71
[2020-08-29 08:03] LABS: VITAMIN D, 25-HYDROXY 20.4 ng/mL (30-100)
[2020-08-29 12:00] VITALS: BP 137/62
[2020-08-29] MEDS ORDERED: VITAMIN D350 MC2 PO (13:56)
[2020-08-30 08:00] VITALS: BP 153/74
== END 2020-08-30 09:50 | DRG 861 ==
LOC: ED 15:47 → EDHOLD 18:38 → 5E 18:38
PROVIDERS: Emergency Medicine; Hospitalist; ADMIT Internal Medicine; ATTEND Internal Medicine
DX: R53.1 Weakness (principal); R26.81 Unsteadiness on feet; R11.2 Nausea with vomiting, unspecified; E87.1 Hypo-osmolality and hyponatremia; E87.6 Hypokalemia; F10.10 Alcohol abuse, uncomplicated; K21.9 Gastro-esophageal reflux disease without esophagitis; E87.2 Acidosis; R73.9 Hyperglycemia, unspecified; E80.6 Other disorders of bilirubin metabolism; D64.9 Anemia, unspecified; I10 Essential (primary) hypertension; J44.9 Chronic obstructive pulmonary disease, unspecified; I48.0 Paroxysmal atrial fibrillation; F17.210 Nicotine dependence, cigarettes, uncomplicated; F32.9 Major depressive disorder, single episode, unspecified; N40.0 Benign prostatic hyperplasia without lower urinary tract symptoms; G62.9 Polyneuropathy, unspecified; Z82.49 Family history of ischemic heart disease and other diseases of the circulatory system; Z82.0 Family history of epilepsy and other diseases of the nervous system; Z79.82 Long term (current) use of aspirin; Z79.899 Other long term (current) drug therapy

== ENCOUNTER 2020-09-22 07:34 | Inpatient (IN) | payer OTHER ==
[~2020-09-22] VITALS: Ht 177.8 cm; Wt 71.9 kg
[~2020-09-22 07:34] MED LIST changes: +FLOMAX0.4 MG PO; +GABAPENTIN100 M2 PO; +VITAMIN D350 MC2 PO; +ZOLOFT50 MG PO
[2020-09-22 07:42] VITALS: BP 139/77
[2020-09-22 08:38] LABS: BASO % 0.1 % (0.0-1.0); EOS % 0.4 % (1.0-4.0); HEMATOCRIT 38.1 % (42.0-52.0); LYMPH # 1.4 10*3/uL (1.3-4.4); LYMPH % 15.7 % (27.0-41.0); MEAN CELL VOLUME 91.6 fl (80.0-94.0); MEAN CORPUSCULAR HGB 29.8 pg (27.0-31.0); MEAN CORPUSCULAR HGB CONC 32.5 g/dl (33.0-37.0); MEAN PLATELET VOLUME 9.8 fl (9.6-12.3); MONO # 0.5 10*3/uL (0.1-1.0); NEUT # 7.1 10*3/uL (2.3-7.9); NEUT % 78.7 % (47.0-73.0); PLATELET COUNT AUTOMATED 237 10*3/uL (130-400); RED BLOOD COUNT 4.16 10*6/uL (4.50-5.90); RED CELL DISTRI WIDTH 13.9 % (0-14.5)
[2020-09-22 09:07] LABS: ACT PARTIAL THROMBO TIME 22.4 SECONDS (20.0-32.1); ALBUMIN 3.6 gm/dl (3.1-4.5); ALKALINE PHOSPHATASE 85 U/L (45-117); BUN 4 mg/dl (7-24); CHLORIDE 108 mmol/L (98-107); CREATININE 0.75 mg/dL (0.70-1.30); INTERNATIONAL NORM RATIO 0.9 (2.0-3.5); POTASSIUM 4.3 mmol/L (3.5-5.1); SGOT/AST 66 IU/L (3-35); SGPT/ALT 49 U/L (12-78); SODIUM 145 mmol/L (136-145)
[2020-09-22 09:49] VITALS: BP 144/80
[2020-09-22 12:00] VITALS: BP 134/86
[2020-09-22 14:47] VITALS: BP 137/84
[2020-09-22 15:08] VITALS: BP 168/79
[2020-09-22] MEDS ORDERED: B-1100 M1 PO (15:20)
[2020-09-22 20:00] VITALS: BP 166/72
[2020-09-23] VITALS: BP 157/87
[2020-09-23 04:00] VITALS: BP 134/86
[2020-09-23 06:38] LABS: ALKALINE PHOSPHATASE 73 U/L (45-117); BUN 6 mg/dl (7-24); CHLORIDE 103 mmol/L (98-107); CREATININE 0.54 mg/dL (0.70-1.30); POTASSIUM 3.6 mmol/L (3.5-5.1); SGOT/AST 26 IU/L (3-35); SGPT/ALT 33 U/L (12-78); SODIUM 136 mmol/L (136-145); TOTAL PROTEIN 6.3 gm/dL (6.4-8.2)
[2020-09-23 06:52] LABS: BASO % 0.1 % (0.0-1.0); EOS % 0.4 % (1.0-4.0); HEMATOCRIT 32.2 % (42.0-52.0); LYMPH # 1.4 10*3/uL (1.3-4.4); LYMPH % 12.7 % (27.0-41.0); MEAN CELL VOLUME 93.9 fl (80.0-94.0); MEAN PLATELET VOLUME 10.2 fl (9.6-12.3); MONO # 1.2 10*3/uL (0.1-1.0); MONO % 10.7 % (3.0-9.0); NEUT # 8.3 10*3/uL (2.3-7.9); NEUT % 75.8 % (47.0-73.0); RED BLOOD COUNT 3.43 10*6/uL (4.50-5.90); RED CELL DISTRI WIDTH 13.8 % (0-14.5); WHITE BLOOD COUNT 10.9 10*3/uL (4.8-10.8)
[2020-09-23 06:53] LABS: PLATELET COUNT AUTOMATED 159 10*3/uL (130-400)
[2020-09-23 08:00] VITALS: BP 144/78
[2020-09-23 12:00] VITALS: BP 148/76
[2020-09-23] MEDS ORDERED: HYDROCODONE-AC1 EAC1 PO (14:11)
[2020-09-23 16:00] VITALS: BP 136/79
== END 2020-09-23 17:09 | DRG 342 ==
LOC: ED 07:34 → 5E 09:24 → EDHOLD 09:24 → 5E 14:39
PROVIDERS: Emergency Medicine; Internal Medicine; ADMIT Emergency Medicine; ATTEND Emergency Medicine
PROC: 2W3AX1Z Immobilization of Right Upper Arm using Splint (ICD-10-PCS; principal; 2020-09-22)
DX: S42.221A 2-part displaced fracture of surgical neck of right humerus, initial encounter for closed fracture (principal); F10.220 Alcohol dependence with intoxication, uncomplicated; E83.41 Hypermagnesemia; F17.210 Nicotine dependence, cigarettes, uncomplicated; I48.91 Unspecified atrial fibrillation; K21.9 Gastro-esophageal reflux disease without esophagitis; E87.8 Other disorders of electrolyte and fluid balance, not elsewhere classified; J44.9 Chronic obstructive pulmonary disease, unspecified; D64.9 Anemia, unspecified; X58.XXXA Exposure to other specified factors, initial encounter; I10 Essential (primary) hypertension; Z20.822 Contact with and (suspected) exposure to COVID-19; R26.2 Difficulty in walking, not elsewhere classified; W19.XXXA Unspecified fall, initial encounter; Y92.009 Unspecified place in unspecified non-institutional (private) residence as the place of occurrence of the external cause; Y93.89 Activity, other specified; Y99.8 Other external cause status; Z71.6 Tobacco abuse counseling

== ENCOUNTER → 2020-10-02 | Outpatient (CLI) | payer OTHER | END | disposition home or self-care (01) | LOC: ORTHO 00:41 | PROVIDERS: ATTEND Orthopaedic Surgery | DX: S42.221D 2-part displaced fracture of surgical neck of right humerus, subsequent encounter for fracture with routine healing (principal); X58.XXXD Exposure to other specified factors, subsequent encounter ==

== ENCOUNTER → 2020-10-22 | Outpatient (CLI) | payer OTHER | END | disposition home or self-care (01) | LOC: ORTHO 08:00 | PROVIDERS: ATTEND Orthopaedic Surgery | DX: S42.221D 2-part displaced fracture of surgical neck of right humerus, subsequent encounter for fracture with routine healing (principal); X58.XXXD Exposure to other specified factors, subsequent encounter ==

== ENCOUNTER → 2020-11-13 | Outpatient (CLI) | payer OTHER | END | disposition home or self-care (01) | LOC: ORTHO 00:21 | PROVIDERS: ATTEND Orthopaedic Surgery | DX: S42.291D Other displaced fracture of upper end of right humerus, subsequent encounter for fracture with routine healing (principal); L84 Corns and callosities; X58.XXXD Exposure to other specified factors, subsequent encounter ==

== ENCOUNTER → 2021-01-10 | Outpatient (CLI) | payer OTHER | END | disposition home or self-care (01) | LOC: ORTHO 00:54 | PROVIDERS: ATTEND Orthopaedic Surgery | DX: S42.221D 2-part displaced fracture of surgical neck of right humerus, subsequent encounter for fracture with routine healing (principal); X58.XXXD Exposure to other specified factors, subsequent encounter ==

== ENCOUNTER → 2021-02-17 | Outpatient (CLI) | payer OTHER ==
[~2021-02-17] MED LIST changes: +LISINOPRIL10 M1 PO; +PROSCAR5 M1 PO
[2021-02-17 07:45] LABS: HEMATOCRIT 48.9 % (42.0-52.0); MEAN CELL VOLUME 90.2 fl (80.0-94.0); MEAN CORPUSCULAR HGB 28.6 pg (27.0-31.0); MEAN CORPUSCULAR HGB CONC 31.7 g/dl (33.0-37.0); MEAN PLATELET VOLUME 9.3 fl (9.6-12.3); RED BLOOD COUNT 5.42 10*6/uL (4.50-5.90); RED CELL DISTRI WIDTH 17.5 % (0-14.5); WHITE BLOOD COUNT 5.9 10*3/uL (4.8-10.8)
[2021-02-17 07:59] LABS: ALBUMIN 3.8 gm/dl (3.1-4.5); ALKALINE PHOSPHATASE 143 U/L (45-117); BUN 4 mg/dl (7-24); CHLORIDE 107 mmol/L (98-107); CHOLESTEROL 177 mg/dL (<200); CREATININE 0.74 mg/dL (0.70-1.30); LDL CHOLESTEROL 112 mg/dL (9-159); SGOT/AST 16 IU/L (3-35); SGPT/ALT 17 U/L (12-78); SODIUM 134 mmol/L (136-145); TOTAL PROTEIN 7.9 gm/dL (6.4-8.2); TRIGLYCERIDES 111 mg/dl (<150)
[2021-02-17 09:05] LABS: VITAMIN D, 25-HYDROXY 53.4 ng/mL (30-100)
[2021-02-18 13:07] LABS: PROSTATE SPECIFIC AG FREE 0.24 ng/mL; PROSTATE SPECIFIC AG, SERUM 2.4 ng/mL (0.0-4.0)
== END | disposition home or self-care (01) ==
LOC: LAB 07:16
PROVIDERS: ATTEND Family Medicine
DX: J44.9 Chronic obstructive pulmonary disease, unspecified (principal); N40.0 Benign prostatic hyperplasia without lower urinary tract symptoms; R53.83 Other fatigue; E87.6 Hypokalemia; D52.9 Folate deficiency anemia, unspecified; F17.200 Nicotine dependence, unspecified, uncomplicated; Z13.220 Encounter for screening for lipoid disorders

== ENCOUNTER 2021-02-23 08:26 | Emergency (ER) | payer OTHER ==
[~2021-02-23] VITALS: Ht 177.8 cm; Wt 69.9 kg
[~2021-02-23 08:26] MED LIST changes: -LISINOPRIL10 M1 PO; -PROSCAR5 M1 PO
[2021-02-23] MEDS ORDERED: LISINOPRIL10 M1 PO (08:54)
[2021-02-23] MEDS ORDERED: PROSCAR5 M1 PO (08:54)
[2021-02-23 08:55] LABS: BASO % 0.3 % (0.0-1.0); EOS # 0.1 10*3/uL (0.0-0.4); EOS % 0.9 % (1.0-4.0); LYMPH # 1.3 10*3/uL (1.3-4.4); MEAN CELL VOLUME 91.7 fl (80.0-94.0); MEAN CORPUSCULAR HGB 29.2 pg (27.0-31.0); MEAN CORPUSCULAR HGB CONC 31.8 g/dl (33.0-37.0); MEAN PLATELET VOLUME 9.5 fl (9.6-12.3); MONO # 0.9 10*3/uL (0.1-1.0); NEUT # 4.3 10*3/uL (2.3-7.9); NEUT % 65.5 % (47.0-73.0); PLATELET COUNT AUTOMATED 200 10*3/uL (130-400); RED BLOOD COUNT 5.45 10*6/uL (4.50-5.90); RED CELL DISTRI WIDTH 17.7 % (0-14.5); WHITE BLOOD COUNT 6.6 10*3/uL (4.8-10.8)
[2021-02-23] MEDS ORDERED: POTASSIUM CHLO20 ME3 PO (08:56)
[2021-02-23] MEDS ORDERED: PHARMASSURE FO0.4 MG PO (08:56)
[2021-02-23 09:16] LABS: ALBUMIN 3.8 gm/dl (3.1-4.5); ALKALINE PHOSPHATASE 126 U/L (45-117); BUN 5 mg/dl (7-24); CHLORIDE 100 mmol/L (98-107); CREATININE 0.87 mg/dL (0.70-1.30); POTASSIUM 4.1 mmol/L (3.5-5.1); SGOT/AST 17 IU/L (3-35); SGPT/ALT 18 U/L (12-78); SODIUM 133 mmol/L (136-145); TOTAL PROTEIN 7.7 gm/dL (6.4-8.2)
[2021-02-23 09:30] LABS: TROPONIN I < 0.015 ng/ml (<0.045)
== END 2021-02-23 09:57 | disposition home or self-care (01) ==
LOC: ED 08:26
PROVIDERS: Emergency Medicine
DX: R42 Dizziness and giddiness (principal); R53.1 Weakness; M79.602 Pain in left arm; I10 Essential (primary) hypertension; Z79.899 Other long term (current) drug therapy; I48.91 Unspecified atrial fibrillation; J44.9 Chronic obstructive pulmonary disease, unspecified; K21.9 Gastro-esophageal reflux disease without esophagitis; F17.200 Nicotine dependence, unspecified, uncomplicated; R26.81 Unsteadiness on feet

== ENCOUNTER 2021-03-24 22:41 | Emergency (ER) | payer OTHER ==
[~2021-03-24] VITALS: Ht 177.8 cm; Wt 113.4 kg
[~2021-03-24 22:41] MED LIST changes: +LISINOPRIL10 M1 PO; +PROSCAR5 M1 PO
[2021-03-24 23:48] LABS: BASO % 0.3 % (0.0-1.0); EOS # 0.2 10*3/uL (0.0-0.4); EOS % 2.4 % (1.0-4.0); HEMATOCRIT 48.3 % (42.0-52.0); LYMPH # 1.7 10*3/uL (1.3-4.4); LYMPH % 23.1 % (27.0-41.0); MEAN CELL VOLUME 89.3 fl (80.0-94.0); MEAN CORPUSCULAR HGB CONC 32.5 g/dl (33.0-37.0); MEAN PLATELET VOLUME 9.7 fl (9.6-12.3); MONO # 1.3 10*3/uL (0.1-1.0); MONO % 17.1 % (3.0-9.0); NEUT # 4.2 10*3/uL (2.3-7.9); NEUT % 56.8 % (47.0-73.0); PLATELET COUNT AUTOMATED 201 10*3/uL (130-400); RED BLOOD COUNT 5.41 10*6/uL (4.50-5.90); RED CELL DISTRI WIDTH 14.2 % (0-14.5); WHITE BLOOD COUNT 7.4 10*3/uL (4.8-10.8)
[2021-03-25 00:07] LABS: ALBUMIN 2.9 gm/dl (3.1-4.5); ALKALINE PHOSPHATASE 91 U/L (45-117); BUN 3 mg/dl (7-24); CHLORIDE 101 mmol/L (98-107); LIPASE 148 U/L (73-393); POTASSIUM 3.6 mmol/L (3.5-5.1); SGOT/AST 14 IU/L (3-35); SGPT/ALT 15 U/L (12-78); SODIUM 132 mmol/L (136-145); TOTAL PROTEIN 6.6 gm/dL (6.4-8.2)
[2021-03-25 00:10] LABS: TROPONIN I < 0.015 ng/ml (<0.045)
[2021-03-25] MEDS ORDERED: CIPRO500 MG PO (01:56)
[2021-03-25] MEDS ORDERED: FLAGYL500 MG PO (01:56)
[2021-03-25 02:03] LABS: BILIRUBIN Negative (Negative); BLOOD Negative (Negative); CLARITY Clear (Clear); COLOR Yellow (Yellow); GLUCOSE Negative (Negative); KETONE Negative (Negative); LEUKO ESTERASE Negative (Negative); NITRITE Negative (Negative); SPECIFIC GRAVITY <= 1.005 (1.001-1.030); UROBILINOGEN 0.2 E.U./dl (0.0-1.0)
[2021-03-25 02:11] LABS: RBC 0-2 rbc/hpf (0-2); WBC 0-2 wbc/hpf (0-5)
== END 2021-03-25 02:00 | disposition home or self-care (01) ==
LOC: ED 22:41
PROVIDERS: Physician Assistant
DX: K52.9 Noninfective gastroenteritis and colitis, unspecified (principal); K80.20 Calculus of gallbladder without cholecystitis without obstruction; F17.200 Nicotine dependence, unspecified, uncomplicated; Z79.899 Other long term (current) drug therapy; Z98.890 Other specified postprocedural states

== ENCOUNTER → 2021-04-11 | Outpatient (CLI) | payer MEDICAID ==
[~2021-04-11] MED LIST changes: +DAILY VALUE1 EACH PO
== END | disposition home or self-care (01) ==
LOC: ORTHO 00:27
PROVIDERS: ATTEND Orthopaedic Surgery
DX: S42.221 2-part displaced fracture of surgical neck of right humerus (principal); X58.XXXD Exposure to other specified factors, subsequent encounter

== ENCOUNTER 2021-04-17 14:19 | Emergency (ER) | payer MEDICAID ==
[~2021-04-17 14:19] MED LIST changes: -DAILY VALUE1 EACH PO
[2021-04-21] MEDS ORDERED: DAILY VALUE1 EACH PO (14:23)
== END 2021-04-17 15:15 | disposition left against medical advice (07) ==
LOC: ED 14:19
DX: R10.9 Unspecified abdominal pain (principal); Z53.21 Procedure and treatment not carried out due to patient leaving prior to being seen by health care provider

== ENCOUNTER 2021-05-02 05:37 | Emergency (ER) | payer MEDICAID ==
[~2021-05-02] VITALS: Ht 177.8 cm; Wt 67.1 kg
[~2021-05-02 05:37] MED LIST changes: +DAILY VALUE1 EACH PO
[2021-05-02 06:14] LABS: BASO % 0.5 % (0.0-1.0); EOS # 0.2 10*3/uL (0.0-0.4); EOS % 2.6 % (1.0-4.0); HEMATOCRIT 53.3 % (42.0-52.0); LYMPH # 1.5 10*3/uL (1.3-4.4); LYMPH % 23.1 % (27.0-41.0); MEAN CELL VOLUME 82.8 fl (80.0-94.0); MEAN CORPUSCULAR HGB 26.7 pg (27.0-31.0); MEAN CORPUSCULAR HGB CONC 32.3 g/dl (33.0-37.0); MEAN PLATELET VOLUME 10.1 fl (9.6-12.3); MONO # 0.9 10*3/uL (0.1-1.0); MONO % 14.2 % (3.0-9.0); NEUT # 3.8 10*3/uL (2.3-7.9); NEUT % 59.4 % (47.0-73.0); PLATELET COUNT AUTOMATED 264 10*3/uL (130-400); RED BLOOD COUNT 6.44 10*6/uL (4.50-5.90); RED CELL DISTRI WIDTH 14.8 % (0-14.5); WHITE BLOOD COUNT 6.4 10*3/uL (4.8-10.8)
[2021-05-02 06:20] LABS: ALBUMIN 3.2 gm/dl (3.1-4.5); ALKALINE PHOSPHATASE 101 U/L (45-117); BUN 3 mg/dl (7-24); CHLORIDE 102 mmol/L (98-107); CREATININE 0.88 mg/dL (0.70-1.30); LIPASE 160 U/L (73-393); POTASSIUM 4.7 mmol/L (3.5-5.1); SGOT/AST 19 IU/L (3-35); SGPT/ALT 24 U/L (12-78); SODIUM 133 mmol/L (136-145); TOTAL PROTEIN 7.2 gm/dL (6.4-8.2)
[2021-05-02 06:26] LABS: ETHYL ALCOHOL < 3.0 mg/dl (<3)
[2021-05-02] MEDS ORDERED: ZOFRAN4 MG PO (07:26)
== END 2021-05-02 07:29 | disposition home or self-care (01) ==
LOC: ED 05:37
PROVIDERS: Internal Medicine
DX: K82.8 Other specified diseases of gallbladder (principal); Z79.899 Other long term (current) drug therapy

== ENCOUNTER → 2021-07-16 | Outpatient (CLI) | payer MEDICAID ==
[~2021-07-16] MED LIST changes: +LISINOPRIL20 MG PO
[2021-07-16 09:32] LABS: BASO % 0.1 % (0.0-1.0); EOS # 0.2 10*3/uL (0.0-0.4); EOS % 2.1 % (1.0-4.0); HEMATOCRIT 55.8 % (42.0-52.0); LYMPH # 1.7 10*3/uL (1.3-4.4); MEAN CELL VOLUME 85.7 fl (80.0-94.0); MEAN CORPUSCULAR HGB 26.9 pg (27.0-31.0); MEAN CORPUSCULAR HGB CONC 31.4 g/dl (33.0-37.0); MONO % 13.6 % (3.0-9.0); NEUT # 4.8 10*3/uL (2.3-7.9); NEUT % 62.1 % (47.0-73.0); PLATELET COUNT AUTOMATED 174 10*3/uL (130-400); RED BLOOD COUNT 6.51 10*6/uL (4.50-5.90); WHITE BLOOD COUNT 7.7 10*3/uL (4.8-10.8)
[2021-07-16 09:47] LABS: ALBUMIN 3.1 gm/dl (3.1-4.5); ALKALINE PHOSPHATASE 102 U/L (45-117); BUN 5 mg/dl (7-24); CHLORIDE 106 mmol/L (98-107); CREATININE 0.94 mg/dL (0.70-1.30); POTASSIUM 3.7 mmol/L (3.5-5.1); SGOT/AST 23 IU/L (3-35); SGPT/ALT 19 U/L (12-78); SODIUM 134 mmol/L (136-145); TOTAL PROTEIN 7.3 gm/dL (6.4-8.2)
[2021-07-16 09:48] LABS: FREE T4 0.97 ng/dl (0.76-1.46)
== END | disposition home or self-care (01) ==
LOC: LAB 08:32
PROVIDERS: ATTEND Internal Medicine
DX: R42 Dizziness and giddiness (principal)

== ENCOUNTER 2021-07-25 12:22 | Emergency (ER) | payer MEDICAID ==
[2021-07-25 13:16] LABS: BASO % 0.3 % (0.0-1.0); EOS # 0.1 10*3/uL (0.0-0.4); EOS % 0.8 % (1.0-4.0); HEMATOCRIT 55.6 % (42.0-52.0); LYMPH # 1.3 10*3/uL (1.3-4.4); LYMPH % 16.1 % (27.0-41.0); MEAN CELL VOLUME 82.9 fl (80.0-94.0); MEAN CORPUSCULAR HGB 26.8 pg (27.0-31.0); MEAN CORPUSCULAR HGB CONC 32.4 g/dl (33.0-37.0); MONO # 0.9 10*3/uL (0.1-1.0); MONO % 10.9 % (3.0-9.0); NEUT # 5.7 10*3/uL (2.3-7.9); NEUT % 71.6 % (47.0-73.0); PLATELET COUNT AUTOMATED 198 10*3/uL (130-400); RED BLOOD COUNT 6.71 10*6/uL (4.50-5.90); RED CELL DISTRI WIDTH 19.3 % (0-14.5); WHITE BLOOD COUNT 7.9 10*3/uL (4.8-10.8)
[2021-07-25 13:40] LABS: ALBUMIN 3.1 gm/dl (3.1-4.5); ALKALINE PHOSPHATASE 106 U/L (45-117); BUN 8 mg/dl (7-24); CHLORIDE 105 mmol/L (98-107); CREATININE 0.98 mg/dL (0.70-1.30); LIPASE 118 U/L (73-393); POTASSIUM 4.1 mmol/L (3.5-5.1); SGOT/AST 30 IU/L (3-35); SGPT/ALT 28 U/L (12-78); SODIUM 138 mmol/L (136-145); TOTAL PROTEIN 7.3 gm/dL (6.4-8.2)
[2021-07-25 14:29] LABS: BILIRUBIN Negative (Negative); BLOOD Negative (Negative); CLARITY Clear (Clear); COLOR Yellow (Yellow); GLUCOSE Negative (Negative); KETONE Trace (Negative); LEUKO ESTERASE Negative (Negative); NITRITE Negative (Negative); PH 7.5 (4.5-8.0); SPECIFIC GRAVITY 1.015 (1.001-1.030)
[2021-07-25 14:46] LABS: BACTERIA 2+; EPITHELIAL CELLS 0-2; HYALINE CAST 0-2
[2021-07-25] MEDS ORDERED: ZOFRAN4 MG PO (14:49)
== END 2021-07-25 15:17 | disposition home or self-care (01) ==
LOC: ED 12:22
PROVIDERS: Physician Assistant
DX: A08.4 Viral intestinal infection, unspecified (principal); Z20.822 Contact with and (suspected) exposure to COVID-19

== ENCOUNTER → 2021-10-18 | Outpatient (CLI) | payer MEDICAID ==
[2021-10-18 09:24] LABS: BASO % 0.4 % (0.0-1.0); EOS # 0.1 10*3/uL (0.0-0.4); EOS % 1.2 % (1.0-4.0); HEMATOCRIT 57.2 % (42.0-52.0); LYMPH # 1.7 10*3/uL (1.3-4.4); LYMPH % 22.5 % (27.0-41.0); MEAN CELL VOLUME 88.5 fl (80.0-94.0); MEAN CORPUSCULAR HGB 29.7 pg (27.0-31.0); MEAN CORPUSCULAR HGB CONC 33.6 g/dl (33.0-37.0); MEAN PLATELET VOLUME 9.6 fl (9.6-12.3); MONO % 12.5 % (3.0-9.0); NEUT # 4.8 10*3/uL (2.3-7.9); NEUT % 63.3 % (47.0-73.0); PLATELET COUNT AUTOMATED 185 10*3/uL (130-400); RED BLOOD COUNT 6.46 10*6/uL (4.50-5.90); WHITE BLOOD COUNT 7.6 10*3/uL (4.8-10.8)
[2021-10-18 09:39] LABS: ALKALINE PHOSPHATASE 117 U/L (45-117); BUN 5 mg/dl (7-24); CHLORIDE 101 mmol/L (98-107); CREATININE 0.95 mg/dL (0.70-1.30); SGOT/AST 79 IU/L (3-35); SGPT/ALT 72 U/L (12-78); SODIUM 133 mmol/L (136-145); TOTAL PROTEIN 7.8 gm/dL (6.4-8.2)
== END | disposition home or self-care (01) ==
LOC: LAB 08:59
PROVIDERS: ATTEND Internal Medicine
DX: E53.8 Deficiency of other specified B group vitamins (principal); K92.1 Melena

== ENCOUNTER 2021-11-01 14:22 | Inpatient (IN) | payer MEDICAID ==
[~2021-11-01] VITALS: Ht 177.8 cm; Wt 62.3 kg
[2021-11-01 14:28] VITALS: BP 120/70
[2021-11-01 15:08] LABS: BASO % 0.1 % (0.0-1.0); EOS % 0.1 % (1.0-4.0); HEMATOCRIT 55.6 % (42.0-52.0); LYMPH # 1.3 10*3/uL (1.3-4.4); LYMPH % 17.3 % (27.0-41.0); MEAN CELL VOLUME 87.1 fl (80.0-94.0); MEAN CORPUSCULAR HGB 29.6 pg (27.0-31.0); MONO # 0.9 10*3/uL (0.1-1.0); MONO % 11.9 % (3.0-9.0); NEUT # 5.2 10*3/uL (2.3-7.9); NEUT % 70.2 % (47.0-73.0); PLATELET COUNT AUTOMATED 198 10*3/uL (130-400); RED BLOOD COUNT 6.38 10*6/uL (4.50-5.90); RED CELL DISTRI WIDTH 16.2 % (0-14.5); WHITE BLOOD COUNT 7.4 10*3/uL (4.8-10.8)
[2021-11-01 16:05] LABS: ALKALINE PHOSPHATASE 131 U/L (45-117); BUN 5 mg/dl (7-24); CHLORIDE 100 mmol/L (98-107); CREATININE 0.96 mg/dL (0.70-1.30); LIPASE 186 U/L (73-393); POTASSIUM 4.7 mmol/L (3.5-5.1); SGOT/AST 202 IU/L (3-35); SGPT/ALT 112 U/L (12-78); SODIUM 132 mmol/L (136-145); TOTAL PROTEIN 7.6 gm/dL (6.4-8.2)
[2021-11-01 16:33] VITALS: BP 126/74
[2021-11-01 17:51] LABS: BILIRUBIN Negative (Negative); BLOOD Negative (Negative); CLARITY Clear (Clear); COLOR Yellow (Yellow); GLUCOSE Negative (Negative); KETONE 1+ (Negative); LEUKO ESTERASE Negative (Negative); NITRITE Negative (Negative); SPECIFIC GRAVITY <= 1.005 (1.001-1.030); UROBILINOGEN 0.2 E.U./dl (0.0-1.0)
[2021-11-01 18:05] LABS: URINE BARBITURATES < 200 (200ng/ml); URINE BENZODIAZEPINES < 200 (200ng/ml); URINE CANNABINOIDS (THC) < 50 (50ng/ml); URINE COCAINE < 300 (300ng/ml); URINE METHADONE < 300 (300ng/ml); URINE OPIATES < 300 (300ng/ml)
[2021-11-01 18:10] LABS: URINE AMPHETAMINES < 1000 (1000ng/ml)
[2021-11-01 18:12] LABS: BACTERIA TRACE; EPITHELIAL CELLS 0-2
[2021-11-01 18:13] LABS: URINE PHENCYCLIDINE < 25 (25ng/ml)
[2021-11-01] MEDS ORDERED: ATENOLOL25 MG PO (18:19)
[2021-11-01] MEDS ORDERED: PROTONIX40 MG PO (18:19)
[2021-11-01 20:00] VITALS: BP 123/63
[2021-11-02] VITALS: BP 117/62
[2021-11-02 06:02] LABS: BUN 4 mg/dl (7-24); CHLORIDE 107 mmol/L (98-107); POTASSIUM 3.8 mmol/L (3.5-5.1); SODIUM 137 mmol/L (136-145)
[2021-11-02 06:06] LABS: ALKALINE PHOSPHATASE 92 U/L (45-117); CREATININE 0.68 mg/dL (0.70-1.30); SGOT/AST 112 IU/L (3-35); SGPT/ALT 75 U/L (12-78); TOTAL PROTEIN 5.3 gm/dL (6.4-8.2)
[2021-11-02 06:12] LABS: BASO % 0.3 % (0.0-1.0); EOS # 0.1 10*3/uL (0.0-0.4); HEMATOCRIT 45.3 % (42.0-52.0); LYMPH # 1.4 10*3/uL (1.3-4.4); LYMPH % 19.9 % (27.0-41.0); MEAN CELL VOLUME 88.5 fl (80.0-94.0); MEAN CORPUSCULAR HGB 30.5 pg (27.0-31.0); MEAN CORPUSCULAR HGB CONC 34.4 g/dl (33.0-37.0); MEAN PLATELET VOLUME 10.2 fl (9.6-12.3); MONO % 14.8 % (3.0-9.0); NEUT # 4.4 10*3/uL (2.3-7.9); NEUT % 63.6 % (47.0-73.0); PLATELET COUNT AUTOMATED 141 10*3/uL (130-400); RED BLOOD COUNT 5.12 10*6/uL (4.50-5.90); RED CELL DISTRI WIDTH 15.5 % (0-14.5)
[2021-11-02 08:00] VITALS: BP 125/68
[2021-11-02 12:00] VITALS: BP 109/54
[2021-11-02 16:00] VITALS: BP 131/66
[2021-11-02 20:00] VITALS: BP 132/78
[2021-11-03] VITALS: BP 133/79
[2021-11-03 06:13] LABS: ALKALINE PHOSPHATASE 85 U/L (45-117); BUN 3 mg/dl (7-24); CHLORIDE 108 mmol/L (98-107); CREATININE 0.66 mg/dL (0.70-1.30); POTASSIUM 3.4 mmol/L (3.5-5.1); SGOT/AST 53 IU/L (3-35); SGPT/ALT 50 U/L (12-78); SODIUM 138 mmol/L (136-145); TOTAL PROTEIN 5.2 gm/dL (6.4-8.2)
[2021-11-03 08:00] VITALS: BP 131/66
[2021-11-03 12:00] VITALS: BP 143/73
[2021-11-03] MEDS ORDERED: CIPRO500 MG PO (12:46)
[2021-11-03] MEDS ORDERED: METRONIDAZOLE500 M1 PO (12:46)
== END 2021-11-03 14:25 | disposition home or self-care (01) | DRG 249 ==
LOC: ED 14:22 → EDHOLD 16:17 → 5E 16:17
PROVIDERS: Emergency Medicine; ADMIT Internal Medicine; ATTEND Internal Medicine
DX: K52.9 Noninfective gastroenteritis and colitis, unspecified (principal); F10.239 Alcohol dependence with withdrawal, unspecified; D75.1 Secondary polycythemia; E87.1 Hypo-osmolality and hyponatremia; K63.89 Other specified diseases of intestine; I10 Essential (primary) hypertension; J44.9 Chronic obstructive pulmonary disease, unspecified; I48.91 Unspecified atrial fibrillation; E55.9 Vitamin D deficiency, unspecified; K21.9 Gastro-esophageal reflux disease without esophagitis; E86.0 Dehydration; F17.200 Nicotine dependence, unspecified, uncomplicated; R26.89 Other abnormalities of gait and mobility; E44.0 Moderate protein-calorie malnutrition; Z81.8 Family history of other mental and behavioral disorders; Z82.49 Family history of ischemic heart disease and other diseases of the circulatory system; Z68.1 Body mass index [BMI] 19.9 or less, adult

== ENCOUNTER 2021-11-11 09:31 | Inpatient (IN) | payer MEDICAID ==
[~2021-11-11] VITALS: Ht 175.3 cm; Wt 61.2 kg
[~2021-11-11 09:31] MED LIST changes: +METRONIDAZOLE500 M1 PO; +PROTONIX40 MG PO
[2021-11-11] MEDS ORDERED: ASPIRIN ADULT L81 M1 PO (09:34)
[2021-11-11 10:02] LABS: BASO % 0.1 % (0.0-1.0); EOS % 0.1 % (1.0-4.0); LYMPH # 1.1 10*3/uL (1.3-4.4); MEAN CELL VOLUME 87.5 fl (80.0-94.0); MEAN CORPUSCULAR HGB 30.2 pg (27.0-31.0); MEAN CORPUSCULAR HGB CONC 34.5 g/dl (33.0-37.0); MEAN PLATELET VOLUME 9.9 fl (9.6-12.3); MONO # 0.9 10*3/uL (0.1-1.0); MONO % 12.6 % (3.0-9.0); NEUT # 5.1 10*3/uL (2.3-7.9); NEUT % 71.9 % (47.0-73.0); PLATELET COUNT AUTOMATED 196 10*3/uL (130-400); RED BLOOD COUNT 5.83 10*6/uL (4.50-5.90); RED CELL DISTRI WIDTH 15.7 % (0-14.5); WHITE BLOOD COUNT 7.1 10*3/uL (4.8-10.8)
[2021-11-11 10:06] VITALS: BP 134/78
[2021-11-11 10:12] LABS: ACT PARTIAL THROMBO TIME 25.7 SECONDS (20.0-32.1)
[2021-11-11 10:20] LABS: ALKALINE PHOSPHATASE 119 U/L (45-117); BUN 5 mg/dl (7-24); CHLORIDE 104 mmol/L (98-107); CREATININE 0.92 mg/dL (0.70-1.30); LIPASE 206 U/L (73-393); POTASSIUM 4.2 mmol/L (3.5-5.1); SGOT/AST 144 IU/L (3-35); SGPT/ALT 73 U/L (12-78); SODIUM 138 mmol/L (136-145); TOTAL PROTEIN 7.3 gm/dL (6.4-8.2)
[2021-11-11 13:27] VITALS: BP 123/76
[2021-11-11 16:55] VITALS: BP 154/67
[2021-11-11 20:00] VITALS: BP 134/68
[2021-11-12] VITALS: BP 124/53
[2021-11-12 08:00] VITALS: BP 143/65
[2021-11-12 12:00] VITALS: BP 155/75
[2021-11-12 16:00] VITALS: BP 146/62
[2021-11-12 20:00] VITALS: BP 136/61
[2021-11-13] VITALS: BP 134/49
[2021-11-13 06:40] LABS: EOS # 0.1 10*3/uL (0.0-0.4); EOS % 1.4 % (1.0-4.0); HEMATOCRIT 39.2 % (42.0-52.0); LYMPH % 17.3 % (27.0-41.0); MEAN CELL VOLUME 89.1 fl (80.0-94.0); MEAN CORPUSCULAR HGB 30.5 pg (27.0-31.0); MEAN CORPUSCULAR HGB CONC 34.2 g/dl (33.0-37.0); MEAN PLATELET VOLUME 10.2 fl (9.6-12.3); MONO # 0.9 10*3/uL (0.1-1.0); MONO % 15.9 % (3.0-9.0); NEUT # 3.7 10*3/uL (2.3-7.9); NEUT % 65.1 % (47.0-73.0); RED CELL DISTRI WIDTH 15.2 % (0-14.5); WHITE BLOOD COUNT 5.7 10*3/uL (4.8-10.8)
[2021-11-13 06:51] LABS: BUN 3 mg/dl (7-24); CHLORIDE 106 mmol/L (98-107); CREATININE 0.46 mg/dL (0.70-1.30); SODIUM 138 mmol/L (136-145)
[2021-11-13 07:09] LABS: PLATELET COUNT AUTOMATED 135 10*3/uL (130-400)
[2021-11-13 08:00] VITALS: BP 123/59
[2021-11-13 12:00] VITALS: BP 137/53
[2021-11-13 16:00] VITALS: BP 141/60
[2021-11-13 20:00] VITALS: BP 165/81
[2021-11-14] VITALS: BP 144/90
[2021-11-14 07:49] LABS: BUN 2 mg/dl (7-24); CHLORIDE 106 mmol/L (98-107); CREATININE 0.49 mg/dL (0.70-1.30); POTASSIUM 3.9 mmol/L (3.5-5.1); SODIUM 136 mmol/L (136-145)
[2021-11-14 12:00] VITALS: BP 143/74
[2021-11-14 16:00] VITALS: BP 139/73
[2021-11-14 20:00] VITALS: BP 137/73
[2021-11-15] VITALS: BP 128/64
[2021-11-15] MEDS ORDERED: METRONIDAZOLE500 M1 PO (05:22)
[2021-11-15 08:00] VITALS: BP 154/78
[2021-11-24] MEDS ORDERED: LISINOPRIL10 M1 PO (07:57)
[2021-11-25] MEDS ORDERED: THIAMINE HCL100 MG PO (13:21)
[2021-11-25] MEDS ORDERED: NATURE'S BLEND F1 MG PO (13:21)
== END 2021-11-15 08:37 | disposition home health service (06) | DRG 249 ==
LOC: ED 09:31 → EDHOLD 13:54 → 4E 13:54 → EDHOLD 14:04 → 4E 16:16
PROVIDERS: Emergency Medicine; Internal Medicine; ADMIT Internal Medicine; ATTEND Internal Medicine
PROC: 05HB33Z Insertion of Infusion Device into Right Basilic Vein, Percutaneous Approach (ICD-10-PCS; principal; 2021-11-14)
DX: K52.9 Noninfective gastroenteritis and colitis, unspecified (principal); K80.20 Calculus of gallbladder without cholecystitis without obstruction; F10.239 Alcohol dependence with withdrawal, unspecified; K29.70 Gastritis, unspecified, without bleeding; E87.6 Hypokalemia; E87.2 Acidosis; I10 Essential (primary) hypertension; K76.0 Fatty (change of) liver, not elsewhere classified; Z82.49 Family history of ischemic heart disease and other diseases of the circulatory system; Z81.8 Family history of other mental and behavioral disorders

== ENCOUNTER 2021-12-01 20:54 | Emergency (ER) | payer MEDICAID ==
[~2021-12-01] VITALS: Ht 177.8 cm; Wt 72.6 kg
[~2021-12-01 20:54] MED LIST changes: +ASPIRIN ADULT L81 M1 PO; +THIAMINE HCL100 MG PO
[2021-12-01 21:59] LABS: BASO % 0.3 % (0.0-1.0); EOS # 0.1 10*3/uL (0.0-0.4); HEMATOCRIT 47.4 % (42.0-52.0); LYMPH # 2.4 10*3/uL (1.3-4.4); LYMPH % 40.4 % (27.0-41.0); MEAN CELL VOLUME 91.5 fl (80.0-94.0); MEAN CORPUSCULAR HGB 30.9 pg (27.0-31.0); MEAN CORPUSCULAR HGB CONC 33.8 g/dl (33.0-37.0); MEAN PLATELET VOLUME 9.4 fl (9.6-12.3); MONO # 1.1 10*3/uL (0.1-1.0); MONO % 18.1 % (3.0-9.0); NEUT # 2.4 10*3/uL (2.3-7.9); NEUT % 39.9 % (47.0-73.0); PLATELET COUNT AUTOMATED 232 10*3/uL (130-400); RED BLOOD COUNT 5.18 10*6/uL (4.50-5.90)
[2021-12-01 22:51] LABS: ALKALINE PHOSPHATASE 123 U/L (45-117); BUN 3 mg/dl (7-24); CHLORIDE 115 mmol/L (98-107); CREATININE 0.58 mg/dL (0.70-1.30); POTASSIUM 3.7 mmol/L (3.5-5.1); SGOT/AST 56 IU/L (3-35); SGPT/ALT 41 U/L (12-78); SODIUM 147 mmol/L (136-145)
[2021-12-01 23:00] LABS: BILIRUBIN Negative (Negative); BLOOD Negative (Negative); CLARITY Clear (Clear); COLOR Yellow (Yellow); GLUCOSE Negative (Negative); KETONE Negative (Negative); LEUKO ESTERASE Negative (Negative); NITRITE Negative (Negative); SPECIFIC GRAVITY <= 1.005 (1.001-1.030); UROBILINOGEN 0.2 E.U./dl (0.0-1.0)
[2021-12-01 23:47] LABS: RBC 0-2 rbc/hpf (0-2)
[2021-12-02] MEDS ORDERED: ATENOLOL25 MG PO (14:57)
[2021-12-02] MEDS ORDERED: NEURONTIN100 MG PO (14:58)
[2021-12-02] MEDS ORDERED: COREG6.25 MG PO (14:58)
== END 2021-12-02 12:13 | disposition home or self-care (01) ==
LOC: ED 20:54
PROVIDERS: Physician Assistant
DX: F10.10 Alcohol abuse, uncomplicated (principal); Z88.8 Allergy status to other drugs, medicaments and biological substances; Z79.899 Other long term (current) drug therapy; Z79.82 Long term (current) use of aspirin; Z98.890 Other specified postprocedural states; Z87.891 Personal history of nicotine dependence; Y90.9 Presence of alcohol in blood, level not specified

== ENCOUNTER 2021-12-09 12:31 | Emergency (ER) | payer MEDICAID ==
[~2021-12-09] VITALS: Ht 177.8 cm; Wt 60.8 kg
[~2021-12-09 12:31] MED LIST changes: +NEURONTIN100 MG PO
[2021-12-09 13:16] LABS: BASO % 0.3 % (0.0-1.0); EOS % 0.1 % (1.0-4.0); LYMPH # 1.6 10*3/uL (1.3-4.4); LYMPH % 14.3 % (27.0-41.0); MEAN CELL VOLUME 89.6 fl (80.0-94.0); MEAN CORPUSCULAR HGB 31.3 pg (27.0-31.0); MEAN CORPUSCULAR HGB CONC 34.9 g/dl (33.0-37.0); NEUT # 8.7 10*3/uL (2.3-7.9); PLATELET COUNT AUTOMATED 183 10*3/uL (130-400); RED BLOOD COUNT 5.02 10*6/uL (4.50-5.90); RED CELL DISTRI WIDTH 15.6 % (0-14.5); WHITE BLOOD COUNT 11.5 10*3/uL (4.8-10.8)
[2021-12-09 13:35] LABS: ALKALINE PHOSPHATASE 126 U/L (45-117); BUN 5 mg/dl (7-24); CHLORIDE 101 mmol/L (98-107); CREATININE 0.83 mg/dL (0.70-1.30); LIPASE 253 U/L (73-393); POTASSIUM 3.6 mmol/L (3.5-5.1); SGOT/AST 36 IU/L (3-35); SGPT/ALT 30 U/L (12-78); SODIUM 136 mmol/L (136-145)
[2021-12-09] MEDS ORDERED: Ondansetron4 MG PO (14:23)
== END 2021-12-09 14:30 | disposition home or self-care (01) ==
LOC: ED 12:31
PROVIDERS: Internal Medicine
DX: R11.2 Nausea with vomiting, unspecified (principal); Z88.6 Allergy status to analgesic agent; Z79.899 Other long term (current) drug therapy; Z79.82 Long term (current) use of aspirin; Z98.890 Other specified postprocedural states; Z87.891 Personal history of nicotine dependence

== ENCOUNTER 2022-01-12 17:36 | Emergency (ER) | payer MEDICAID ==
[~2022-01-12] VITALS: Ht 177.8 cm; Wt 59.0 kg
[~2022-01-12 17:36] MED LIST changes: +Ondansetron4 MG PO
[2022-01-12 19:24] LABS: BASO % 0.3 % (0.0-1.0); EOS # 0.1 10*3/uL (0.0-0.4); EOS % 0.9 % (1.0-4.0); HEMATOCRIT 45.1 % (42.0-52.0); LYMPH % 29.1 % (27.0-41.0); MEAN CELL VOLUME 95.1 fl (80.0-94.0); MEAN CORPUSCULAR HGB 31.4 pg (27.0-31.0); MEAN PLATELET VOLUME 9.4 fl (9.6-12.3); MONO # 0.8 10*3/uL (0.1-1.0); MONO % 12.5 % (3.0-9.0); NEUT # 3.9 10*3/uL (2.3-7.9); NEUT % 57.1 % (47.0-73.0); PLATELET COUNT AUTOMATED 198 10*3/uL (130-400); RED BLOOD COUNT 4.74 10*6/uL (4.50-5.90); WHITE BLOOD COUNT 6.7 10*3/uL (4.8-10.8)
[2022-01-12 19:44] LABS: ALKALINE PHOSPHATASE 103 U/L (45-117); BUN 3 mg/dl (7-24); CHLORIDE 103 mmol/L (98-107); CREATININE 0.68 mg/dL (0.70-1.30); LIPASE 314 U/L (73-393); POTASSIUM 3.8 mmol/L (3.5-5.1); SGOT/AST 28 IU/L (3-35); SGPT/ALT 24 U/L (12-78); SODIUM 135 mmol/L (136-145); TOTAL PROTEIN 6.6 gm/dL (6.4-8.2)
== END 2022-01-12 22:39 | disposition home or self-care (01) ==
LOC: ED 17:36
PROVIDERS: Internal Medicine
DX: K80.80 Other cholelithiasis without obstruction (principal); Z88.6 Allergy status to analgesic agent; Z79.82 Long term (current) use of aspirin; Z79.899 Other long term (current) drug therapy; Z87.891 Personal history of nicotine dependence

== ENCOUNTER 2022-01-26 11:44 | Emergency (ER) | payer MEDICAID ==
[~2022-01-26] VITALS: Wt 59.0 kg
[2022-01-26 12:30] LABS: BASO % 0.3 % (0.0-1.0); EOS # 0.1 10*3/uL (0.0-0.4); EOS % 0.6 % (1.0-4.0); LYMPH # 1.9 10*3/uL (1.3-4.4); LYMPH % 20.2 % (27.0-41.0); MEAN CELL VOLUME 95.8 fl (80.0-94.0); MEAN CORPUSCULAR HGB 31.1 pg (27.0-31.0); MEAN CORPUSCULAR HGB CONC 32.5 g/dl (33.0-37.0); NEUT # 6.6 10*3/uL (2.3-7.9); NEUT % 68.7 % (47.0-73.0); PLATELET COUNT AUTOMATED 231 10*3/uL (130-400); RED BLOOD COUNT 5.43 10*6/uL (4.50-5.90); RED CELL DISTRI WIDTH 12.4 % (0-14.5); WHITE BLOOD COUNT 9.6 10*3/uL (4.8-10.8)
[2022-01-26 12:41] LABS: ACT PARTIAL THROMBO TIME 25.9 SECONDS (20.0-32.1)
[2022-01-26 12:46] LABS: ALKALINE PHOSPHATASE 122 U/L (45-117); BUN 3 mg/dl (7-24); CHLORIDE 103 mmol/L (98-107); CREATININE 0.76 mg/dL (0.70-1.30); POTASSIUM 3.8 mmol/L (3.5-5.1); SGOT/AST 26 IU/L (3-35); SGPT/ALT 19 U/L (12-78); SODIUM 134 mmol/L (136-145); TOTAL PROTEIN 6.6 gm/dL (6.4-8.2)
[2022-01-26 13:10] LABS: BILIRUBIN Negative (Negative); BLOOD Negative (Negative); CLARITY Clear (Clear); COLOR Yellow (Yellow); GLUCOSE Negative (Negative); KETONE Negative (Negative); LEUKO ESTERASE Negative (Negative); NITRITE Negative (Negative); PH 6.5 (4.5-8.0); SPECIFIC GRAVITY <= 1.005 (1.001-1.030); UROBILINOGEN 0.2 E.U./dl (0.0-1.0)
[2022-01-26 13:20] LABS: EPITHELIAL CELLS 0-2
== END 2022-01-26 16:10 | disposition home or self-care (01) ==
LOC: ED 11:44
PROVIDERS: Nurse Practitioner Family
DX: R53.1 Weakness (principal); Z20.822 Contact with and (suspected) exposure to COVID-19; R53.83 Other fatigue; R11.10 Vomiting, unspecified; R51.9 Headache, unspecified; Z88.8 Allergy status to other drugs, medicaments and biological substances; Z79.899 Other long term (current) drug therapy; Z79.82 Long term (current) use of aspirin; Z87.891 Personal history of nicotine dependence

== ENCOUNTER 2022-02-07 13:14 | Emergency (ER) | payer MEDICAID ==
[~2022-02-07] VITALS: Wt 56.2 kg
[2022-02-07 14:16] LABS: BILIRUBIN Negative (Negative); BLOOD Negative (Negative); CLARITY Clear (Clear); COLOR Yellow (Yellow); GLUCOSE Negative (Negative); KETONE Negative (Negative); LEUKO ESTERASE Negative (Negative); NITRITE Negative (Negative); PH 6.5 (4.5-8.0); SPECIFIC GRAVITY <= 1.005 (1.001-1.030); UROBILINOGEN 0.2 E.U./dl (0.0-1.0)
[2022-02-07 14:22] LABS: BASO % 0.2 % (0.0-1.0); EOS # 0.1 10*3/uL (0.0-0.4); EOS % 0.7 % (1.0-4.0); HEMATOCRIT 53.8 % (42.0-52.0); LYMPH # 1.9 10*3/uL (1.3-4.4); LYMPH % 23.3 % (27.0-41.0); MEAN CELL VOLUME 94.2 fl (80.0-94.0); MEAN CORPUSCULAR HGB 31.3 pg (27.0-31.0); MEAN CORPUSCULAR HGB CONC 33.3 g/dl (33.0-37.0); MEAN PLATELET VOLUME 9.2 fl (9.6-12.3); MONO # 0.9 10*3/uL (0.1-1.0); MONO % 10.8 % (3.0-9.0); NEUT # 5.4 10*3/uL (2.3-7.9); NEUT % 64.8 % (47.0-73.0); PLATELET COUNT AUTOMATED 203 10*3/uL (130-400); RED BLOOD COUNT 5.71 10*6/uL (4.50-5.90); RED CELL DISTRI WIDTH 12.8 % (0-14.5); WHITE BLOOD COUNT 8.3 10*3/uL (4.8-10.8)
[2022-02-07 14:37] LABS: EPITHELIAL CELLS 0-2; WBC 0-2 wbc/hpf (0-5)
[2022-02-07 14:40] LABS: ALKALINE PHOSPHATASE 119 U/L (45-117); BUN 3 mg/dl (7-24); CHLORIDE 101 mmol/L (98-107); CREATININE 0.78 mg/dL (0.70-1.30); LIPASE 228 U/L (73-393); POTASSIUM 3.7 mmol/L (3.5-5.1); SGOT/AST 28 IU/L (3-35); SGPT/ALT 24 U/L (12-78); SODIUM 134 mmol/L (136-145); TOTAL PROTEIN 6.9 gm/dL (6.4-8.2)
== END 2022-02-07 18:18 | disposition home or self-care (01) ==
LOC: ED 13:14
PROVIDERS: Student in an Organized Health Care Education/Training Program
DX: R53.1 Weakness (principal); R42 Dizziness and giddiness; E87.1 Hypo-osmolality and hyponatremia; Z88.8 Allergy status to other drugs, medicaments and biological substances; Z79.82 Long term (current) use of aspirin; Z79.899 Other long term (current) drug therapy

== ENCOUNTER 2022-02-14 06:25 | Emergency (ER) | payer MEDICAID ==
[~2022-02-14] VITALS: Ht 167.6 cm; Wt 72.6 kg
[2022-02-14 06:52] LABS: BASO % 0.7 % (0.0-1.0); EOS # 0.1 10*3/uL (0.0-0.4); EOS % 2.4 % (1.0-4.0); HEMATOCRIT 53.8 % (42.0-52.0); LYMPH # 1.6 10*3/uL (1.3-4.4); LYMPH % 37.7 % (27.0-41.0); MEAN CELL VOLUME 94.9 fl (80.0-94.0); MEAN CORPUSCULAR HGB CONC 32.7 g/dl (33.0-37.0); MEAN PLATELET VOLUME 9.2 fl (9.6-12.3); MONO # 0.6 10*3/uL (0.1-1.0); MONO % 14.5 % (3.0-9.0); NEUT # 1.9 10*3/uL (2.3-7.9); NEUT % 44.2 % (47.0-73.0); PLATELET COUNT AUTOMATED 209 10*3/uL (130-400); RED BLOOD COUNT 5.67 10*6/uL (4.50-5.90); WHITE BLOOD COUNT 4.2 10*3/uL (4.8-10.8)
[2022-02-14 07:07] LABS: ALKALINE PHOSPHATASE 117 U/L (45-117); BUN 2 mg/dl (7-24); CHLORIDE 104 mmol/L (98-107); CREATININE 0.75 mg/dL (0.70-1.30); LIPASE 231 U/L (73-393); POTASSIUM 3.9 mmol/L (3.5-5.1); SGOT/AST 25 IU/L (3-35); SGPT/ALT 23 U/L (12-78); SODIUM 134 mmol/L (136-145); TOTAL PROTEIN 6.5 gm/dL (6.4-8.2)
== END 2022-02-14 10:56 | disposition home or self-care (01) ==
LOC: ED 06:25
PROVIDERS: Internal Medicine
DX: R42 Dizziness and giddiness (principal); R53.1 Weakness; D75.1 Secondary polycythemia; Z88.8 Allergy status to other drugs, medicaments and biological substances; Z79.899 Other long term (current) drug therapy; Z87.891 Personal history of nicotine dependence; Z98.890 Other specified postprocedural states

== ENCOUNTER 2022-03-05 12:05 | Inpatient (IN) | payer MEDICAID ==
[~2022-03-05] VITALS: Ht 177.8 cm; Wt 60.4 kg
[2022-03-05 12:15] VITALS: BP 140/88
[2022-03-05 13:06] LABS: BASO % 0.4 % (0.0-1.0); EOS # 0.1 10*3/uL (0.0-0.4); EOS % 0.6 % (1.0-4.0); HEMATOCRIT 53.1 % (42.0-52.0); LYMPH # 1.4 10*3/uL (1.3-4.4); LYMPH % 16.6 % (27.0-41.0); MEAN CELL VOLUME 92.2 fl (80.0-94.0); MEAN CORPUSCULAR HGB 30.2 pg (27.0-31.0); MEAN CORPUSCULAR HGB CONC 32.8 g/dl (33.0-37.0); MEAN PLATELET VOLUME 9.5 fl (9.6-12.3); MONO # 0.9 10*3/uL (0.1-1.0); MONO % 10.5 % (3.0-9.0); NEUT % 71.5 % (47.0-73.0); PLATELET COUNT AUTOMATED 201 10*3/uL (130-400); RED BLOOD COUNT 5.76 10*6/uL (4.50-5.90); RED CELL DISTRI WIDTH 13.4 % (0-14.5); WHITE BLOOD COUNT 8.4 10*3/uL (4.8-10.8)
[2022-03-05 13:32] LABS: ALKALINE PHOSPHATASE 100 U/L (45-117); BUN 2 mg/dl (7-24); CHLORIDE 105 mmol/L (98-107); CREATININE 0.75 mg/dL (0.70-1.30); POTASSIUM 4.2 mmol/L (3.5-5.1); SGOT/AST 24 IU/L (3-35); SGPT/ALT 21 U/L (12-78); SODIUM 137 mmol/L (136-145); TOTAL PROTEIN 6.6 gm/dL (6.4-8.2)
[2022-03-05 15:40] VITALS: BP 132/83
[2022-03-05] MEDS ORDERED: ASPIRIN ADULT L81 M1 PO (16:36)
[2022-03-05] MEDS ORDERED: LISINOPRIL10 M1 PO (16:36)
[2022-03-05] MEDS ORDERED: PANTOPRAZOLE SO40 MG PO (16:36)
[2022-03-05 20:00] VITALS: BP 128/86
[2022-03-06] VITALS: BP 129/77
[2022-03-06 06:11] LABS: BASO % 0.3 % (0.0-1.0); EOS # 0.2 10*3/uL (0.0-0.4); EOS % 2.5 % (1.0-4.0); HEMATOCRIT 48.1 % (42.0-52.0); LYMPH % 32.4 % (27.0-41.0); MEAN CELL VOLUME 93.8 fl (80.0-94.0); MEAN CORPUSCULAR HGB 30.6 pg (27.0-31.0); MEAN CORPUSCULAR HGB CONC 32.6 g/dl (33.0-37.0); MEAN PLATELET VOLUME 10.1 fl (9.6-12.3); MONO # 0.9 10*3/uL (0.1-1.0); MONO % 14.8 % (3.0-9.0); NEUT # 3.1 10*3/uL (2.3-7.9); NEUT % 49.7 % (47.0-73.0); PLATELET COUNT AUTOMATED 162 10*3/uL (130-400); RED BLOOD COUNT 5.13 10*6/uL (4.50-5.90); RED CELL DISTRI WIDTH 13.4 % (0-14.5); WHITE BLOOD COUNT 6.3 10*3/uL (4.8-10.8)
[2022-03-06 07:54] LABS: BUN 3 mg/dl (7-24); CHLORIDE 109 mmol/L (98-107); CREATININE 0.55 mg/dL (0.70-1.30); SODIUM 140 mmol/L (136-145)
[2022-03-06 08:00] VITALS: BP 131/77
[2022-03-06 12:00] VITALS: BP 147/81
[2022-03-06 12:44] VITALS: BP 148/83
== END 2022-03-06 12:28 | disposition home or self-care (01) ==
LOC: ED 12:05 → EDHOLD 13:07 → 4E 15:07
PROVIDERS: Emergency Medicine; ADMIT Internal Medicine; ATTEND Internal Medicine
DX: K80.01 Calculus of gallbladder with acute cholecystitis with obstruction (principal); F10.20 Alcohol dependence, uncomplicated; K21.9 Gastro-esophageal reflux disease without esophagitis; E44.0 Moderate protein-calorie malnutrition; I10 Essential (primary) hypertension; J44.9 Chronic obstructive pulmonary disease, unspecified; D75.1 Secondary polycythemia; Z88.6 Allergy status to analgesic agent; Z88.8 Allergy status to other drugs, medicaments and biological substances; Z81.8 Family history of other mental and behavioral disorders; Z82.49 Family history of ischemic heart disease and other diseases of the circulatory system; Z68.1 Body mass index [BMI] 19.9 or less, adult

== ENCOUNTER 2022-04-10 12:41 | Emergency (ER) | payer MEDICAID ==
[~2022-04-10 12:41] MED LIST changes: +PANTOPRAZOLE SO40 MG PO
[2022-04-10 14:15] LABS: BASO % 0.3 % (0.0-1.0); EOS # 0.2 10*3/uL (0.0-0.4); EOS % 2.1 % (1.0-4.0); HEMATOCRIT 53.6 % (42.0-52.0); LYMPH # 1.6 10*3/uL (1.3-4.4); LYMPH % 21.9 % (27.0-41.0); MEAN CELL VOLUME 93.4 fl (80.0-94.0); MEAN CORPUSCULAR HGB 31.4 pg (27.0-31.0); MEAN CORPUSCULAR HGB CONC 33.6 g/dl (33.0-37.0); MEAN PLATELET VOLUME 9.9 fl (9.6-12.3); MONO # 0.9 10*3/uL (0.1-1.0); MONO % 12.3 % (3.0-9.0); NEUT # 4.5 10*3/uL (2.3-7.9); NEUT % 63.1 % (47.0-73.0); PLATELET COUNT AUTOMATED 214 10*3/uL (130-400); RED BLOOD COUNT 5.74 10*6/uL (4.50-5.90); RED CELL DISTRI WIDTH 14.7 % (0-14.5); WHITE BLOOD COUNT 7.1 10*3/uL (4.8-10.8)
[2022-04-10 14:27] LABS: ALKALINE PHOSPHATASE 113 U/L (45-117); BUN 3 mg/dl (7-24); CHLORIDE 107 mmol/L (98-107); CREATININE 0.67 mg/dL (0.70-1.30); POTASSIUM 4.1 mmol/L (3.5-5.1); SGOT/AST 41 IU/L (3-35); SGPT/ALT 36 U/L (12-78); SODIUM 138 mmol/L (136-145); TOTAL PROTEIN 6.8 gm/dL (6.4-8.2)
[2022-04-10 15:19] LABS: BILIRUBIN Negative (Negative); BLOOD Negative (Negative); CLARITY Clear (Clear); COLOR Yellow (Yellow); GLUCOSE Negative (Negative); KETONE Negative (Negative); LEUKO ESTERASE Negative (Negative); NITRITE Negative (Negative); PH 7.5 (4.5-8.0); SPECIFIC GRAVITY <= 1.005 (1.001-1.030)
[2022-04-10 15:58] LABS: BACTERIA TRACE; EPITHELIAL CELLS 0-2; WBC 0-2 wbc/hpf (0-5)
== END 2022-04-10 19:14 | disposition home or self-care (01) ==
LOC: ED 12:41
PROVIDERS: Physician Assistant
DX: R63.0 Anorexia (principal); R42 Dizziness and giddiness; Z88.8 Allergy status to other drugs, medicaments and biological substances; Z79.899 Other long term (current) drug therapy; Z87.891 Personal history of nicotine dependence

== ENCOUNTER 2022-07-10 14:01 | Emergency (ER) | payer MEDICAID ==
[~2022-07-10] VITALS: Wt 59.4 kg
[2022-07-10 14:36] LABS: BASO % 0.2 % (0.0-1.0); EOS # 0.1 10*3/uL (0.0-0.4); EOS % 0.9 % (1.0-4.0); HEMATOCRIT 48.1 % (42.0-52.0); LYMPH # 0.9 10*3/uL (1.3-4.4); LYMPH % 10.8 % (27.0-41.0); MEAN CELL VOLUME 97.4 fl (80.0-94.0); MEAN CORPUSCULAR HGB CONC 32.8 g/dl (33.0-37.0); MEAN PLATELET VOLUME 9.1 fl (9.6-12.3); MONO # 0.9 10*3/uL (0.1-1.0); MONO % 10.7 % (3.0-9.0); NEUT # 6.3 10*3/uL (2.3-7.9); PLATELET COUNT AUTOMATED 215 10*3/uL (130-400); RED BLOOD COUNT 4.94 10*6/uL (4.50-5.90); RED CELL DISTRI WIDTH 13.3 % (0-14.5); WHITE BLOOD COUNT 8.1 10*3/uL (4.8-10.8)
[2022-07-10] MEDS ORDERED: LISINOPRIL10 M1 PO (14:37)
[2022-07-10 15:04] LABS: ALKALINE PHOSPHATASE 106 U/L (46-116); CHLORIDE 101 mmol/L (98-107); CREATININE 0.72 mg/dL (0.70-1.30); POTASSIUM 3.7 mmol/L (3.4-5.1); SGPT/ALT 24 U/L (10-49); SODIUM 134 mmol/L (136-145)
[2022-07-10 15:05] LABS: BUN < 5 mg/dl (9-23)
[2022-07-10 15:56] LABS: BILIRUBIN Negative (Negative); BLOOD Negative (Negative); COLOR Yellow (Yellow); GLUCOSE Negative (Negative); KETONE Negative (Negative); LEUKO ESTERASE Negative (Negative); NITRITE Negative (Negative); PH 6.5 (4.5-8.0); SPECIFIC GRAVITY 1.015 (1.001-1.030)
[2022-07-10 16:14] LABS: CLARITY Clear (Clear)
[2022-07-10 16:37] LABS: RBC 0-2 rbc/hpf (0-2); WBC 0-2 wbc/hpf (0-5)
== END 2022-07-10 20:43 | disposition home or self-care (01) ==
LOC: ED 14:01
PROVIDERS: Nurse Practitioner Family
DX: E87.20 Acidosis, unspecified (principal); Z20.822 Contact with and (suspected) exposure to COVID-19; R53.1 Weakness; Z88.8 Allergy status to other drugs, medicaments and biological substances; Z79.899 Other long term (current) drug therapy; Z79.82 Long term (current) use of aspirin; Z87.891 Personal history of nicotine dependence

== ENCOUNTER 2022-07-12 09:19 | Emergency (ER) | payer MEDICAID ==
[~2022-07-12] VITALS: Ht 177.8 cm; Wt 59.0 kg
[2022-07-12 10:00] LABS: BASO % 0.1 % (0.0-1.0); EOS % 0.1 % (1.0-4.0); HEMATOCRIT 42.5 % (42.0-52.0); LYMPH % 9.2 % (27.0-41.0); MEAN CELL VOLUME 95.7 fl (80.0-94.0); MEAN CORPUSCULAR HGB 32.2 pg (27.0-31.0); MEAN CORPUSCULAR HGB CONC 33.6 g/dl (33.0-37.0); MEAN PLATELET VOLUME 9.7 fl (9.6-12.3); MONO # 1.5 10*3/uL (0.1-1.0); MONO % 13.4 % (3.0-9.0); NEUT # 8.5 10*3/uL (2.3-7.9); NEUT % 76.8 % (47.0-73.0); PLATELET COUNT AUTOMATED 147 10*3/uL (130-400); RED BLOOD COUNT 4.44 10*6/uL (4.50-5.90); RED CELL DISTRI WIDTH 13.2 % (0-14.5)
[2022-07-12 10:14] LABS: ALKALINE PHOSPHATASE 76 U/L (46-116); BUN 5 mg/dl (9-23); CHLORIDE 100 mmol/L (98-107); CREATININE 0.71 mg/dL (0.70-1.30); POTASSIUM 3.5 mmol/L (3.4-5.1); SGPT/ALT 19 U/L (10-49); SODIUM 130 mmol/L (136-145); TOTAL PROTEIN 5.9 gm/dL (6.0-8.0)
[2022-07-12 12:47] LABS: BILIRUBIN Negative (Negative); BLOOD Negative (Negative); CLARITY Clear (Clear); COLOR Yellow (Yellow); GLUCOSE Negative (Negative); KETONE Negative (Negative); PH 6.5 (4.5-8.0); SPECIFIC GRAVITY 1.015 (1.001-1.030)
[2022-07-12 12:48] LABS: LEUKO ESTERASE Negative (Negative); NITRITE Negative (Negative); UROBILINOGEN 0.2 E.U./dl (0.0-1.0)
[2022-07-12 12:59] LABS: BACTERIA 1+; EPITHELIAL CELLS 0-2; WBC 0-2 wbc/hpf (0-5)
[2022-07-12] MEDS ORDERED: TAMIFLU 75MG CA75 MG PO (14:52)
== END 2022-07-12 15:06 | disposition home or self-care (01) ==
LOC: ED 09:19
PROVIDERS: Student in an Organized Health Care Education/Training Program
DX: J10.1 Influenza due to other identified influenza virus with other respiratory manifestations (principal); Z20.822 Contact with and (suspected) exposure to COVID-19; Z88.8 Allergy status to other drugs, medicaments and biological substances; Z79.899 Other long term (current) drug therapy; Z79.82 Long term (current) use of aspirin; Z87.891 Personal history of nicotine dependence

== ENCOUNTER 2022-08-30 14:15 | Emergency (ER) | payer MEDICAID ==
[~2022-08-30] VITALS: Ht 177.8 cm; Wt 61.7 kg
[~2022-08-30 14:15] MED LIST changes: +A VITE PO; +ATORVASTATIN CA80 M1 PO; +BRILINTA90 M1 PO; +IRON PO; +TAMIFLU 75MG CA75 MG PO
[2022-08-30 14:44] LABS: BASO % 0.3 % (0.0-1.0); EOS # 0.2 10*3/uL (0.0-0.4); EOS % 2.5 % (1.0-4.0); HEMATOCRIT 40.8 % (42.0-52.0); LYMPH # 1.6 10*3/uL (1.3-4.4); LYMPH % 18.3 % (27.0-41.0); MEAN CELL VOLUME 93.6 fl (80.0-94.0); MEAN CORPUSCULAR HGB 30.7 pg (27.0-31.0); MEAN CORPUSCULAR HGB CONC 32.8 g/dl (33.0-37.0); MEAN PLATELET VOLUME 9.9 fl (9.6-12.3); MONO # 0.7 10*3/uL (0.1-1.0); MONO % 8.5 % (3.0-9.0); NEUT # 6.1 10*3/uL (2.3-7.9); NEUT % 70.2 % (47.0-73.0); PLATELET COUNT AUTOMATED 281 10*3/uL (130-400); RED BLOOD COUNT 4.36 10*6/uL (4.50-5.90); RED CELL DISTRI WIDTH 12.8 % (0-14.5); WHITE BLOOD COUNT 8.7 10*3/uL (4.8-10.8)
[2022-08-30 14:55] LABS: ACT PARTIAL THROMBO TIME 25.1 SECONDS (20.0-32.1)
[2022-08-30 15:05] LABS: ALKALINE PHOSPHATASE 94 U/L (46-116); CHLORIDE 100 mmol/L (98-107); POTASSIUM 3.9 mmol/L (3.4-5.1); SGPT/ALT 38 U/L (10-49)
[2022-08-30 15:18] LABS: BUN < 5 mg/dl (9-23)
[2022-08-30 15:56] LABS: URINE AMPHETAMINES Negative (1000ng/ml); URINE BARBITURATES Negative (200ng/ml); URINE BENZODIAZEPINES Negative (200ng/ml); URINE CANNABINOIDS (THC) Negative (50ng/ml); URINE COCAINE Negative (300ng/ml); URINE METHADONE Negative (300ng/ml); URINE OPIATES Negative (300ng/ml); URINE PHENCYCLIDINE Negative (25ng/ml)
[2022-08-30] MEDS ORDERED: PLAVIX75 M1 PO (17:59)
== END 2022-08-30 18:39 | disposition home or self-care (01) ==
LOC: ED 14:15
PROVIDERS: Student in an Organized Health Care Education/Training Program
DX: R06.02 Shortness of breath (principal); T50.995A Adverse effect of other drugs, medicaments and biological substances, initial encounter; Z88.8 Allergy status to other drugs, medicaments and biological substances; Z88.5 Allergy status to narcotic agent; Z98.890 Other specified postprocedural states; F10.20 Alcohol dependence, uncomplicated; F17.200 Nicotine dependence, unspecified, uncomplicated; Y92.89 Other specified places as the place of occurrence of the external cause

== ENCOUNTER 2022-09-27 11:54 | Emergency (ER) | payer MEDICAID ==
[~2022-09-27] VITALS: Ht 177.8 cm; Wt 60.8 kg
[~2022-09-27 11:54] MED LIST changes: +ATORVASTATIN CA40 M1 PO; +PLAVIX75 M1 PO
[2022-09-27 12:59] LABS: BASO % 0.2 % (0.0-1.0); EOS # 0.2 10*3/uL (0.0-0.4); EOS % 1.6 % (1.0-4.0); HEMATOCRIT 38.1 % (42.0-52.0); LYMPH # 1.5 10*3/uL (1.3-4.4); LYMPH % 15.2 % (27.0-41.0); MEAN CELL VOLUME 91.4 fl (80.0-94.0); MEAN CORPUSCULAR HGB 30.5 pg (27.0-31.0); MEAN CORPUSCULAR HGB CONC 33.3 g/dl (33.0-37.0); MEAN PLATELET VOLUME 9.8 fl (9.6-12.3); MONO # 0.7 10*3/uL (0.1-1.0); MONO % 7.3 % (3.0-9.0); NEUT # 7.7 10*3/uL (2.3-7.9); NEUT % 75.5 % (47.0-73.0); PLATELET COUNT AUTOMATED 248 10*3/uL (130-400); RED BLOOD COUNT 4.17 10*6/uL (4.50-5.90); RED CELL DISTRI WIDTH 13.1 % (0-14.5); WHITE BLOOD COUNT 10.2 10*3/uL (4.8-10.8)
[2022-09-27 13:14] LABS: ALKALINE PHOSPHATASE 88 U/L (46-116); CHLORIDE 99 mmol/L (98-107); POTASSIUM 3.7 mmol/L (3.4-5.1); SGPT/ALT 18 U/L (10-49); TOTAL PROTEIN 7.1 gm/dL (6.0-8.0)
[2022-09-27 13:15] LABS: BUN < 5 mg/dl (9-23)
== END 2022-09-27 13:53 | disposition home or self-care (01) ==
LOC: ED 11:54
PROVIDERS: Internal Medicine
DX: R10.13 Epigastric pain (principal); I10 Essential (primary) hypertension; I48.91 Unspecified atrial fibrillation; Z88.5 Allergy status to narcotic agent; Z88.8 Allergy status to other drugs, medicaments and biological substances; Z87.891 Personal history of nicotine dependence

== ENCOUNTER 2022-10-26 14:37 | Emergency (ER) | payer MEDICAID ==
[~2022-10-26] VITALS: Ht 177.8 cm; Wt 58.1 kg
[2022-10-26] MEDS ORDERED: METOPROLOL SUCC25 M2 PO (15:16)
[2022-10-26 15:47] LABS: BASO % 0.3 % (0.0-1.0); EOS # 0.1 10*3/uL (0.0-0.4); EOS % 1.8 % (1.0-4.0); HEMATOCRIT 36.8 % (42.0-52.0); LYMPH # 1.3 10*3/uL (1.3-4.4); LYMPH % 18.3 % (27.0-41.0); MEAN CELL VOLUME 90.6 fl (80.0-94.0); MEAN CORPUSCULAR HGB 30.8 pg (27.0-31.0); MONO # 0.6 10*3/uL (0.1-1.0); MONO % 8.4 % (3.0-9.0); NEUT % 71.1 % (47.0-73.0); PLATELET COUNT AUTOMATED 215 10*3/uL (130-400); RED BLOOD COUNT 4.06 10*6/uL (4.50-5.90); RED CELL DISTRI WIDTH 12.1 % (0-14.5); WHITE BLOOD COUNT 7.1 10*3/uL (4.8-10.8)
[2022-10-26 16:03] LABS: ACT PARTIAL THROMBO TIME 24.9 SECONDS (20.0-32.1)
[2022-10-26 16:08] LABS: ALKALINE PHOSPHATASE 80 U/L (46-116); BUN 6 mg/dl (9-23); CHLORIDE 100 mmol/L (98-107); POTASSIUM 3.9 mmol/L (3.4-5.1); SGPT/ALT 59 U/L (10-49); TOTAL PROTEIN 6.9 gm/dL (6.0-8.0)
== END 2022-10-26 17:08 | disposition home or self-care (01) ==
LOC: ED
PROVIDERS: Emergency Medicine
DX: A41.9 Sepsis, unspecified organism (principal); F41.1 Generalized anxiety disorder; F41.0 Panic disorder [episodic paroxysmal anxiety]; I10 Essential (primary) hypertension; I48.91 Unspecified atrial fibrillation; E87.1 Hypo-osmolality and hyponatremia; Z88.5 Allergy status to narcotic agent; Z88.8 Allergy status to other drugs, medicaments and biological substances; Z98.890 Other specified postprocedural states; F17.200 Nicotine dependence, unspecified, uncomplicated; F10.20 Alcohol dependence, uncomplicated

== ENCOUNTER 2022-11-30 12:46 | Inpatient (IN) | payer MEDICAID ==
[~2022-11-30] VITALS: Ht 177.8 cm; Wt 60.4 kg
[~2022-11-30 12:46] MED LIST changes: +METOPROLOL SUCC25 M2 PO
[2022-11-30 12:52] VITALS: BP 130/84
[2022-11-30 14:24] LABS: BASO % 0.4 % (0.0-1.0); EOS # 0.1 10*3/uL (0.0-0.4); LYMPH # 1.5 10*3/uL (1.3-4.4); LYMPH % 29.8 % (27.0-41.0); MEAN CELL VOLUME 92.8 fl (80.0-94.0); MEAN CORPUSCULAR HGB 31.2 pg (27.0-31.0); MEAN CORPUSCULAR HGB CONC 33.6 g/dl (33.0-37.0); MEAN PLATELET VOLUME 9.3 fl (9.6-12.3); MONO # 0.6 10*3/uL (0.1-1.0); MONO % 12.8 % (3.0-9.0); NEUT # 2.8 10*3/uL (2.3-7.9); NEUT % 55.8 % (47.0-73.0); PLATELET COUNT AUTOMATED 203 10*3/uL (130-400); RED BLOOD COUNT 3.88 10*6/uL (4.50-5.90); RED CELL DISTRI WIDTH 12.9 % (0-14.5); WHITE BLOOD COUNT 4.9 10*3/uL (4.8-10.8)
[2022-11-30 14:48] LABS: ALKALINE PHOSPHATASE 78 U/L (46-116); CHLORIDE 103 mmol/L (98-107); LIPASE 48 U/L (12-53); POTASSIUM 4.2 mmol/L (3.4-5.1); SGPT/ALT 25 U/L (10-49); TOTAL PROTEIN 6.7 gm/dL (6.0-8.0)
[2022-11-30 14:51] LABS: BILIRUBIN Negative (Negative); BLOOD Negative (Negative); CLARITY Clear (Clear); COLOR Yellow (Yellow); GLUCOSE Negative (Negative); KETONE Negative (Negative); LEUKO ESTERASE Negative (Negative); NITRITE Negative (Negative); UROBILINOGEN 0.2 E.U./dl (0.0-1.0)
[2022-11-30 15:03] LABS: BUN < 5 mg/dl (9-23)
[2022-11-30 15:28] LABS: BACTERIA TRACE; RBC 0-2 rbc/hpf (0-2); WBC 0-2 wbc/hpf (0-5)
[2022-11-30 17:49] VITALS: BP 137/79
[2022-11-30 19:12] VITALS: BP 127/59
[2022-11-30 20:20] VITALS: BP 126/71
[2022-12-01] VITALS: BP 147/70
[2022-12-01 06:54] LABS: BASO % 0.4 % (0.0-1.0); EOS # 0.1 10*3/uL (0.0-0.4); EOS % 2.6 % (1.0-4.0); HEMATOCRIT 33.1 % (42.0-52.0); LYMPH # 1.5 10*3/uL (1.3-4.4); LYMPH % 28.9 % (27.0-41.0); MEAN CELL VOLUME 95.7 fl (80.0-94.0); MEAN CORPUSCULAR HGB 30.3 pg (27.0-31.0); MEAN CORPUSCULAR HGB CONC 31.7 g/dl (33.0-37.0); MEAN PLATELET VOLUME 9.3 fl (9.6-12.3); MONO # 0.5 10*3/uL (0.1-1.0); MONO % 10.2 % (3.0-9.0); NEUT # 2.9 10*3/uL (2.3-7.9); NEUT % 57.7 % (47.0-73.0); PLATELET COUNT AUTOMATED 171 10*3/uL (130-400); RED BLOOD COUNT 3.46 10*6/uL (4.50-5.90); RED CELL DISTRI WIDTH 13.1 % (0-14.5); WHITE BLOOD COUNT 5.1 10*3/uL (4.8-10.8)
[2022-12-01 07:41] LABS: ALKALINE PHOSPHATASE 65 U/L (46-116); CHLORIDE 104 mmol/L (98-107); POTASSIUM 3.6 mmol/L (3.4-5.1); SGPT/ALT 22 U/L (10-49); TOTAL PROTEIN 5.7 gm/dL (6.0-8.0)
[2022-12-01 07:50] LABS: BUN < 5 mg/dl (9-23)
[2022-12-01 08:00] VITALS: BP 99/55
[2022-12-01 12:00] VITALS: BP 89/42
[2022-12-01 16:00] VITALS: BP 109/57
[2022-12-01 20:00] VITALS: BP 109/63
[2022-12-02] VITALS: BP 109/66
[2022-12-02 07:17] LABS: BASO % 0.3 % (0.0-1.0); EOS # 0.1 10*3/uL (0.0-0.4); EOS % 1.5 % (1.0-4.0); HEMATOCRIT 36.8 % (42.0-52.0); LYMPH # 1.6 10*3/uL (1.3-4.4); LYMPH % 23.6 % (27.0-41.0); MEAN CELL VOLUME 95.3 fl (80.0-94.0); MEAN CORPUSCULAR HGB 31.1 pg (27.0-31.0); MEAN CORPUSCULAR HGB CONC 32.6 g/dl (33.0-37.0); MEAN PLATELET VOLUME 9.6 fl (9.6-12.3); MONO # 0.5 10*3/uL (0.1-1.0); MONO % 8.1 % (3.0-9.0); NEUT # 4.4 10*3/uL (2.3-7.9); NEUT % 66.1 % (47.0-73.0); PLATELET COUNT AUTOMATED 203 10*3/uL (130-400); RED BLOOD COUNT 3.86 10*6/uL (4.50-5.90); RED CELL DISTRI WIDTH 13.2 % (0-14.5); WHITE BLOOD COUNT 6.7 10*3/uL (4.8-10.8)
[2022-12-02 08:00] VITALS: BP 116/67
[2022-12-02] MEDS ORDERED: VITAMIN B-1100 M1 PO (11:06)
[2022-12-02] MEDS ORDERED: NATURE'S BLEND F1 MG PO (11:06)
[2022-12-03 02:07] LABS: TOTAL PROTEIN, SERUM 6.4 g/dL (6.0-8.5)
[2022-12-03 16:08] LABS: ALBUMIN 3.2 g/dL (2.9-4.4); ALPHA-1-GLOBULIN 0.2 g/dL (0.0-0.4); ALPHA-2-GLOBULIN 0.9 g/dL (0.4-1.0); BETA GLOBULIN 1.1 g/dL (0.7-1.3); GLOBULIN, TOTAL 3.2 g/dL (2.2-3.9); M-SPIKE Not Observed g/dL (Not Observed)
== END 2022-12-02 11:59 | disposition home health service (06) | DRG 775 ==
LOC: ED 12:46 → EDHOLD 15:26 → 5E 15:26
PROVIDERS: Emergency Medicine; Internal Medicine; ADMIT Internal Medicine; ATTEND Internal Medicine
DX: F10.230 Alcohol dependence with withdrawal, uncomplicated (principal); D64.9 Anemia, unspecified; E87.20 Acidosis, unspecified; G44.229 Chronic tension-type headache, not intractable; E87.1 Hypo-osmolality and hyponatremia; R73.9 Hyperglycemia, unspecified; R74.01 Elevation of levels of liver transaminase levels; Z86.73 Personal history of transient ischemic attack (TIA), and cerebral infarction without residual deficits; Z95.5 Presence of coronary angioplasty implant and graft; Z82.49 Family history of ischemic heart disease and other diseases of the circulatory system; Z82.0 Family history of epilepsy and other diseases of the nervous system; Z88.5 Allergy status to narcotic agent; Z88.8 Allergy status to other drugs, medicaments and biological substances; Z79.899 Other long term (current) drug therapy; Z79.82 Long term (current) use of aspirin; I25.2 Old myocardial infarction

== ENCOUNTER 2023-03-04 13:57 | Emergency (ER) | payer MEDICAID ==
[~2023-03-04] VITALS: Ht 177.8 cm; Wt 59.9 kg
[2023-03-04] MEDS ORDERED: FAMOTIDINE40 MG PO (13:59)
[2023-03-04] MEDS ORDERED: Carafate1 GM PO (13:59)
[2023-03-04 14:21] LABS: BASO % 0.5 % (0.0-1.0); EOS # 0.2 10*3/uL (0.0-0.4); EOS % 3.2 % (1.0-4.0); LYMPH # 1.7 10*3/uL (1.3-4.4); LYMPH % 27.8 % (27.0-41.0); MEAN CORPUSCULAR HGB 31.8 pg (27.0-31.0); MEAN CORPUSCULAR HGB CONC 33.8 g/dl (33.0-37.0); MEAN PLATELET VOLUME 9.4 fl (9.6-12.3); MONO # 0.7 10*3/uL (0.1-1.0); MONO % 11.8 % (3.0-9.0); NEUT # 3.3 10*3/uL (2.3-7.9); NEUT % 56.4 % (47.0-73.0); PLATELET COUNT AUTOMATED 215 10*3/uL (130-400); RED BLOOD COUNT 4.15 10*6/uL (4.50-5.90); RED CELL DISTRI WIDTH 11.6 % (0-14.5); WHITE BLOOD COUNT 5.9 10*3/uL (4.8-10.8)
[2023-03-04 14:40] LABS: ACT PARTIAL THROMBO TIME 24.5 SECONDS (20.0-32.1); INTERNATIONAL NORM RATIO 1.1 (2.0-3.5)
[2023-03-04 14:45] LABS: ALKALINE PHOSPHATASE 80 U/L (46-116); BUN 5 mg/dl (9-23); CHLORIDE 102 mmol/L (98-107); POTASSIUM 4.3 mmol/L (3.4-5.1); SGPT/ALT 31 U/L (10-49); TOTAL PROTEIN 6.4 gm/dL (6.0-8.0)
== END 2023-03-04 19:47 | disposition home or self-care (01) ==
LOC: ED 13:57
PROVIDERS: Internal Medicine
DX: K80.20 Calculus of gallbladder without cholecystitis without obstruction (principal); K82.8 Other specified diseases of gallbladder; R07.89 Other chest pain; I10 Essential (primary) hypertension; I48.91 Unspecified atrial fibrillation; E87.1 Hypo-osmolality and hyponatremia; Z88.5 Allergy status to narcotic agent; Z98.890 Other specified postprocedural states; Z87.891 Personal history of nicotine dependence

== ENCOUNTER 2023-03-08 17:50 | Emergency (ER) | payer MEDICAID ==
[~2023-03-08] VITALS: Ht 177.8 cm; Wt 59.9 kg
[~2023-03-08 17:50] MED LIST changes: +Carafate1 GM PO; +FAMOTIDINE40 MG PO
[2023-03-08 18:55] LABS: BASO % 0.4 % (0.0-1.0); EOS # 0.3 10*3/uL (0.0-0.4); HEMATOCRIT 40.9 % (42.0-52.0); LYMPH # 2.1 10*3/uL (1.3-4.4); MEAN CELL VOLUME 96.9 fl (80.0-94.0); MEAN CORPUSCULAR HGB 31.8 pg (27.0-31.0); MEAN CORPUSCULAR HGB CONC 32.8 g/dl (33.0-37.0); MEAN PLATELET VOLUME 9.6 fl (9.6-12.3); MONO # 1.1 10*3/uL (0.1-1.0); MONO % 11.5 % (3.0-9.0); NEUT # 5.7 10*3/uL (2.3-7.9); NEUT % 61.9 % (47.0-73.0); PLATELET COUNT AUTOMATED 216 10*3/uL (130-400); RED BLOOD COUNT 4.22 10*6/uL (4.50-5.90); RED CELL DISTRI WIDTH 11.6 % (0-14.5); WHITE BLOOD COUNT 9.2 10*3/uL (4.8-10.8)
[2023-03-08 19:17] LABS: ALKALINE PHOSPHATASE 87 U/L (46-116); CHLORIDE 102 mmol/L (98-107); LIPASE 52 U/L (12-53); POTASSIUM 4.3 mmol/L (3.4-5.1); SGPT/ALT 29 U/L (10-49); TOTAL PROTEIN 7.1 gm/dL (6.0-8.0)
[2023-03-08 19:24] LABS: BUN < 5 mg/dl (9-23)
== END 2023-03-08 20:54 | disposition home or self-care (01) ==
LOC: ED 17:50
PROVIDERS: Physician Assistant Medical
DX: R10.11 Right upper quadrant pain (principal); I10 Essential (primary) hypertension; I48.91 Unspecified atrial fibrillation; E87.1 Hypo-osmolality and hyponatremia; Z88.5 Allergy status to narcotic agent; Z88.8 Allergy status to other drugs, medicaments and biological substances; Z98.890 Other specified postprocedural states; F17.200 Nicotine dependence, unspecified, uncomplicated

== ENCOUNTER 2023-05-07 14:28 | Emergency (ER) | payer MEDICAID ==
[~2023-05-07] VITALS: Ht 177.8 cm; Wt 60.3 kg
[2023-05-07 15:52] LABS: BASO % 0.4 % (0.0-1.0); EOS # 0.3 10*3/uL (0.0-0.4); EOS % 4.4 % (1.0-4.0); HEMATOCRIT 37.5 % (42.0-52.0); LYMPH # 1.5 10*3/uL (1.3-4.4); LYMPH % 19.7 % (27.0-41.0); MEAN CELL VOLUME 93.5 fl (80.0-94.0); MEAN CORPUSCULAR HGB 30.9 pg (27.0-31.0); MEAN CORPUSCULAR HGB CONC 33.1 g/dl (33.0-37.0); MEAN PLATELET VOLUME 9.5 fl (9.6-12.3); MONO # 0.9 10*3/uL (0.1-1.0); MONO % 11.9 % (3.0-9.0); NEUT # 4.8 10*3/uL (2.3-7.9); NEUT % 63.5 % (47.0-73.0); PLATELET COUNT AUTOMATED 198 10*3/uL (130-400); RED BLOOD COUNT 4.01 10*6/uL (4.50-5.90); RED CELL DISTRI WIDTH 11.9 % (0-14.5); WHITE BLOOD COUNT 7.5 10*3/uL (4.8-10.8)
[2023-05-07 16:38] LABS: ALKALINE PHOSPHATASE 85 U/L (46-116); BUN 5 mg/dl (9-23); CHLORIDE 101 mmol/L (98-107); POTASSIUM 4.6 mmol/L (3.4-5.1); SGPT/ALT 54 U/L (10-49); TOTAL PROTEIN 6.7 gm/dL (6.0-8.0)
[2023-05-07 18:58] LABS: BILIRUBIN Negative (Negative); BLOOD Negative (Negative); CLARITY Clear (Clear); COLOR Yellow (Yellow); GLUCOSE Negative (Negative); KETONE Negative (Negative); LEUKO ESTERASE Negative (Negative); NITRITE Negative (Negative); PH 7.5 (4.5-8.0); SPECIFIC GRAVITY <= 1.005 (1.001-1.030); UROBILINOGEN 0.2 E.U./dl (0.0-1.0)
[2023-05-07 19:12] LABS: BACTERIA TRACE; EPITHELIAL CELLS 0-2; RBC 0-2 rbc/hpf (0-2); WBC 0-2 wbc/hpf (0-5)
== END 2023-05-07 21:25 | disposition home or self-care (01) ==
LOC: ED 14:28
PROVIDERS: Nurse Practitioner
DX: E87.20 Acidosis, unspecified (principal); R07.89 Other chest pain; R51.9 Headache, unspecified; R20.0 Anesthesia of skin; R53.1 Weakness; F17.200 Nicotine dependence, unspecified, uncomplicated; Z88.8 Allergy status to other drugs, medicaments and biological substances; Z79.899 Other long term (current) drug therapy; Z79.82 Long term (current) use of aspirin; Z95.5 Presence of coronary angioplasty implant and graft; Z98.890 Other specified postprocedural states; Z86.73 Personal history of transient ischemic attack (TIA), and cerebral infarction without residual deficits

== ENCOUNTER 2023-07-01 11:55 | Emergency (ER) | payer MEDICAID ==
[~2023-07-01] VITALS: Ht 177.8 cm; Wt 62.6 kg
[2023-07-01 17:40] LABS: BASO % 0.3 % (0.0-1.0); EOS # 0.2 10*3/uL (0.0-0.4); EOS % 1.9 % (1.0-4.0); HEMATOCRIT 38.8 % (42.0-52.0); LYMPH # 1.4 10*3/uL (1.3-4.4); LYMPH % 12.8 % (27.0-41.0); MEAN CELL VOLUME 95.8 fl (80.0-94.0); MEAN CORPUSCULAR HGB 30.9 pg (27.0-31.0); MEAN CORPUSCULAR HGB CONC 32.2 g/dl (33.0-37.0); MEAN PLATELET VOLUME 9.5 fl (9.6-12.3); MONO % 8.7 % (3.0-9.0); NEUT # 8.5 10*3/uL (2.3-7.9); NEUT % 75.9 % (47.0-73.0); PLATELET COUNT AUTOMATED 214 10*3/uL (130-400); RED BLOOD COUNT 4.05 10*6/uL (4.50-5.90); RED CELL DISTRI WIDTH 12.1 % (0-14.5); WHITE BLOOD COUNT 11.2 10*3/uL (4.8-10.8)
[2023-07-01 17:56] LABS: ACT PARTIAL THROMBO TIME 23.8 SECONDS (20.0-32.1)
[2023-07-01 17:59] LABS: ALKALINE PHOSPHATASE 83 U/L (46-116); BUN 7 mg/dl (9-23); CHLORIDE 104 mmol/L (98-107); LIPASE 49 U/L (12-53); POTASSIUM 4.7 mmol/L (3.4-5.1); SGPT/ALT 30 U/L (5-49); TOTAL PROTEIN 7.4 gm/dL (6.0-8.0)
== END 2023-07-01 21:04 | disposition home or self-care (01) ==
LOC: ED 11:55
PROVIDERS: Emergency Medicine
DX: R19.7 Diarrhea, unspecified (principal); K80.20 Calculus of gallbladder without cholecystitis without obstruction; I10 Essential (primary) hypertension; I48.91 Unspecified atrial fibrillation; E87.1 Hypo-osmolality and hyponatremia; Z88.5 Allergy status to narcotic agent; Z88.8 Allergy status to other drugs, medicaments and biological substances; Z95.5 Presence of coronary angioplasty implant and graft; Z98.890 Other specified postprocedural states; F17.200 Nicotine dependence, unspecified, uncomplicated

== ENCOUNTER 2023-11-27 20:38 | Emergency (ER) | payer MEDICAID ==
[~2023-11-27] VITALS: Ht 177.8 cm; Wt 64.8 kg
[~2023-11-27 20:38] MED LIST changes: +COL-RITE100 M1 PO
[2023-11-27] MEDS ORDERED: Dicyclomine Hydrochloride 20 MG/10 ML OSYR PO STA (20:52)
[2023-11-27] MEDS ORDERED: MG-AL HYDROXIDE/SIMETICONE 30 ML UDC PO STA (20:52)
[2023-11-27] MEDS ORDERED: Lidocaine Hydrochloride 15 ML UDC PO STA (20:52)
[2023-11-27] MEDS ORDERED: SODIUM CHLORIDE 0.9% 1,000 ML IV ONE (20:55)
[2023-11-27] MEDS ORDERED: IOHEXOL 300 MG/ML 100 ML VIAL IV ONE (20:55)
[2023-11-27 21:11] LABS: BASO % 0.2 % (0.0-1.0); EOS # 0.2 10*3/uL (0.0-0.4); EOS % 2.2 % (1.0-4.0); HEMATOCRIT 35.8 % (42.0-52.0); LYMPH # 1.2 10*3/uL (1.3-4.4); LYMPH % 12.1 % (27.0-41.0); MEAN CELL VOLUME 93.2 fl (80.0-94.0); MEAN CORPUSCULAR HGB 30.5 pg (27.0-31.0); MEAN CORPUSCULAR HGB CONC 32.7 g/dl (33.0-37.0); MONO # 0.8 10*3/uL (0.1-1.0); MONO % 8.2 % (3.0-9.0); NEUT # 7.8 10*3/uL (2.3-7.9); PLATELET COUNT AUTOMATED 236 10*3/uL (130-400); RED BLOOD COUNT 3.84 10*6/uL (4.50-5.90); WHITE BLOOD COUNT 10.1 10*3/uL (4.8-10.8)
[2023-11-27 21:34] LABS: ALKALINE PHOSPHATASE 67 U/L (46-116); BUN < 5 mg/dl (9-23); CHLORIDE 102 mmol/L (98-107); LIPASE 45 U/L (12-53); POTASSIUM 4.3 mmol/L (3.4-5.1); SGPT/ALT 23 U/L (5-49); TOTAL PROTEIN 6.6 gm/dL (6.0-8.0)
[2023-11-27] MEDS ORDERED: Ketorolac Tromethamine 30 MG/ML VIAL IV ONE (22:10)
[2023-11-27 23:05] LABS: BILIRUBIN Negative (Negative); BLOOD Negative (Negative); CLARITY Clear (Clear); COLOR Yellow (Yellow); GLUCOSE Negative (Negative); KETONE Negative (Negative); LEUKO ESTERASE Negative (Negative); NITRITE Negative (Negative); SPECIFIC GRAVITY 1.015 (1.001-1.030); UROBILINOGEN 0.2 E.U./dl (0.0-1.0)
[2023-11-27 23:19] LABS: RBC 0-2 rbc/hpf (0-2); WBC 0-2 wbc/hpf (0-5)
[2023-11-28] MEDS ORDERED: SODIUM CHLORIDE 0.9% 1,000 ML IV ONE (01:31)
== END 2023-11-28 06:37 | disposition home or self-care (01) ==
LOC: ED 20:38
PROVIDERS: Physician Assistant
DX: K80.20 Calculus of gallbladder without cholecystitis without obstruction (principal); R11.2 Nausea with vomiting, unspecified; I10 Essential (primary) hypertension; I48.91 Unspecified atrial fibrillation; E87.1 Hypo-osmolality and hyponatremia; Z88.5 Allergy status to narcotic agent; Z88.8 Allergy status to other drugs, medicaments and biological substances; Z98.890 Other specified postprocedural states; F17.220 Nicotine dependence, chewing tobacco, uncomplicated

== ENCOUNTER 2024-05-17 12:42 | Emergency (ER) | payer MEDICAID ==
[~2024-05-17] VITALS: Ht 177.8 cm; Wt 63.5 kg
[2024-05-17 13:40] LABS: EOS # 0.3 10*3/uL (0.0-0.4); EOS % 6.8 % (1.0-4.0); HEMATOCRIT 39.7 % (42.0-52.0); LYMPH # 1.1 10*3/uL (1.3-4.4); LYMPH % 28.4 % (27.0-41.0); MEAN CELL VOLUME 96.8 fl (80.0-94.0); MEAN PLATELET VOLUME 9.2 fl (9.6-12.3); MONO # 0.5 10*3/uL (0.1-1.0); MONO % 12.4 % (3.0-9.0); NEUT % 51.4 % (47.0-73.0); PLATELET COUNT AUTOMATED 190 10*3/uL (130-400); RED CELL DISTRI WIDTH 11.9 % (0-14.5)
[2024-05-17 13:59] LABS: CHLORIDE 103 mmol/L (98-107)
[2024-05-17 14:03] LABS: BUN < 5 mg/dl (9-23)
[2024-05-17 14:24] LABS: BILIRUBIN Negative (Negative); BLOOD Negative (Negative); CLARITY Clear (Clear); COLOR Yellow (Yellow); GLUCOSE Negative (Negative); KETONE Negative (Negative); LEUKO ESTERASE Negative (Negative); NITRITE Negative (Negative); PH 5.5 (4.5-8.0); SPECIFIC GRAVITY <= 1.005 (1.001-1.030); UROBILINOGEN 0.2 E.U./dl (0.0-1.0)
[2024-05-17 14:51] LABS: RBC 0-2 rbc/hpf (0-2)
== END 2024-05-17 16:10 | disposition home or self-care (01) ==
LOC: ED 12:42
PROVIDERS: Internal Medicine
DX: R53.1 Weakness (principal); I10 Essential (primary) hypertension; I48.91 Unspecified atrial fibrillation; E87.1 Hypo-osmolality and hyponatremia; F17.220 Nicotine dependence, chewing tobacco, uncomplicated; Z88.5 Allergy status to narcotic agent; Z88.8 Allergy status to other drugs, medicaments and biological substances; Z98.890 Other specified postprocedural states

== ENCOUNTER 2024-12-02 17:50 | Emergency (ER) | payer MEDICAID ==
[~2024-12-02] VITALS: Ht 177.8 cm; Wt 68.9 kg
[2024-12-02] MEDS ORDERED: fentaNYL CITRATE 100 MCG/2 ML VIAL IV ONE (18:00)
[2024-12-02 18:23] LABS: BASO % 0.6 % (0.0-1.0); EOS # 0.3 10*3/uL (0.0-0.4); EOS % 5.2 % (1.0-4.0); HEMATOCRIT 40.3 % (42.0-52.0); MEAN CELL VOLUME 93.5 fl (80.0-94.0); MEAN CORPUSCULAR HGB 30.4 pg (27.0-31.0); MEAN CORPUSCULAR HGB CONC 32.5 g/dl (33.0-37.0); MEAN PLATELET VOLUME 9.2 fl (9.6-12.3); MONO # 0.8 10*3/uL (0.1-1.0); MONO % 11.6 % (3.0-9.0); NEUT % 60.3 % (47.0-73.0); PLATELET COUNT AUTOMATED 207 10*3/uL (130-400); RED BLOOD COUNT 4.31 10*6/uL (4.50-5.90); RED CELL DISTRI WIDTH 12.4 % (0-14.5); WHITE BLOOD COUNT 6.6 10*3/uL (4.8-10.8)
[2024-12-02 18:42] LABS: CHLORIDE 100 mmol/L (98-107); POTASSIUM 3.9 mmol/L (3.4-5.1)
[2024-12-02 18:46] LABS: BUN < 5 mg/dl (9-23)
== END 2024-12-02 18:52 | disposition home or self-care (01) ==
LOC: ED 17:50
PROVIDERS: Emergency Medicine
DX: R07.89 Other chest pain (principal); I25.10 Atherosclerotic heart disease of native coronary artery without angina pectoris; I48.91 Unspecified atrial fibrillation; F41.9 Anxiety disorder, unspecified; I10 Essential (primary) hypertension; E78.5 Hyperlipidemia, unspecified; Z88.8 Allergy status to other drugs, medicaments and biological substances; Z88.5 Allergy status to narcotic agent; Z79.899 Other long term (current) drug therapy; Z79.82 Long term (current) use of aspirin; Z95.5 Presence of coronary angioplasty implant and graft; Z87.891 Personal history of nicotine dependence; Z86.73 Personal history of transient ischemic attack (TIA), and cerebral infarction without residual deficits

== ENCOUNTER 2025-01-01 19:58 | Emergency (ER) | payer MEDICAID ==
[~2025-01-01] VITALS: Ht 177.8 cm; Wt 68.0 kg
[2025-01-01 20:36] LABS: BASO % 0.3 % (0.0-1.0); EOS # 0.3 10*3/uL (0.0-0.4); EOS % 2.8 % (1.0-4.0); MEAN CELL VOLUME 94.3 fl (80.0-94.0); MEAN CORPUSCULAR HGB 30.8 pg (27.0-31.0); MEAN CORPUSCULAR HGB CONC 32.6 g/dl (33.0-37.0); MONO # 0.8 10*3/uL (0.1-1.0); MONO % 8.3 % (3.0-9.0); NEUT # 7.5 10*3/uL (2.3-7.9); PLATELET COUNT AUTOMATED 194 10*3/uL (130-400); RED BLOOD COUNT 4.03 10*6/uL (4.50-5.90); RED CELL DISTRI WIDTH 12.3 % (0-14.5); WHITE BLOOD COUNT 9.6 10*3/uL (4.8-10.8)
[2025-01-01 20:57] LABS: ALKALINE PHOSPHATASE 122 U/L (46-116); BUN 6 mg/dl (9-23); CHLORIDE 101 mmol/L (98-107); LIPASE 55 U/L (12-53); POTASSIUM 4.3 mmol/L (3.4-5.1); SGPT/ALT 156 U/L (5-49); TOTAL PROTEIN 6.5 gm/dL (6.0-8.0)
[2025-01-01] MEDS ORDERED: Ciprofloxacin Hydrochloride 500 MG TAB PO ONE (22:25)
[2025-01-01] MEDS ORDERED: methylPREDNISolone sod succ 125 MG VIAL IM ONE (22:25)
[2025-01-01] MEDS ORDERED: metroNIDAZOLE 500 MG TAB PO ONE (22:25)
[2025-01-01] MEDS ORDERED: METRONIDAZOLE500 M1 PO (22:33)
[2025-01-01] MEDS ORDERED: CIPRO500 MG PO (22:33)
[2025-01-01] MEDS ORDERED: PREDNISONE20 M1 PO (22:33)
== END 2025-01-01 22:50 | disposition home or self-care (01) ==
LOC: ED 19:58
PROVIDERS: Internal Medicine
DX: Z88.8 Allergy status to other drugs, medicaments and biological substances (principal); Z88.5 Allergy status to narcotic agent; Z79.899 Other long term (current) drug therapy; Z79.82 Long term (current) use of aspirin; Z95.5 Presence of coronary angioplasty implant and graft; Z98.890 Other specified postprocedural states; Z87.891 Personal history of nicotine dependence; F10.20 Alcohol dependence, uncomplicated; K58.9 Irritable bowel syndrome, unspecified; D53.9 Nutritional anemia, unspecified; E87.1 Hypo-osmolality and hyponatremia; R79.89 Other specified abnormal findings of blood chemistry

== ENCOUNTER 2025-04-27 23:37 | Emergency (ER) | payer MEDICAID ==
[~2025-04-27] VITALS: Ht 177.8 cm; Wt 75.1 kg
[~2025-04-27 23:37] MED LIST changes: +PREDNISONE20 M1 PO
[2025-04-28 00:30] LABS: BASO # 0.0 10*3/uL (0.0-0.1); BASO % 0.6 % (0.0-1.0); EOS # 0.6 10*3/uL (0.0-0.4); EOS % 8.8 % (1.0-4.0); MEAN CELL VOLUME 93.2 fl (80.0-94.0); MEAN CORPUSCULAR HGB 30.3 pg (27.0-31.0); MEAN PLATELET VOLUME 9.3 fl (9.6-12.3); MONO # 0.8 10*3/uL (0.1-1.0); MONO % 11.8 % (3.0-9.0); NEUT # 3.8 10*3/uL (2.3-7.9); NEUT % 58.3 % (47.0-73.0); NUCLEATED RED BLOOD CELL 0.0 % (0.0-0.0); NUCLEATED RED BLOOD CELL 0.0 10*3/uL (0.0-0.0); PLATELET COUNT AUTOMATED 219 10*3/uL (130-400); RED CELL DISTRI WIDTH 11.8 % (0-14.5)
[2025-04-28 00:44] LABS: BUN < 5 mg/dl (9-23)
[2025-04-28 00:47] LABS: ACT PARTIAL THROMBO TIME 22.2 SECONDS (20.0-32.1)
[2025-04-28 01:44] LABS: BILIRUBIN Negative (Negative); BLOOD Negative (Negative); CLARITY Clear (Clear); COLOR Yellow (Yellow); KETONE Negative (Negative); LEUKO ESTERASE Negative (Negative); NITRITE Negative (Negative); PH 7.0 (4.5-8.0); SPECIFIC GRAVITY <= 1.005 (1.001-1.030); UROBILINOGEN 0.2 E.U./dl (0.0-1.0)
[2025-04-28 01:53] LABS: WBC 0-2 wbc/hpf (0-5)
== END 2025-04-28 02:48 | disposition home or self-care (01) ==
LOC: ED 23:37
DX: R53.1 Weakness (principal); R53.83 Other fatigue; R07.89 Other chest pain; I48.91 Unspecified atrial fibrillation; I25.10 Atherosclerotic heart disease of native coronary artery without angina pectoris; J44.9 Chronic obstructive pulmonary disease, unspecified; K21.9 Gastro-esophageal reflux disease without esophagitis; Z87.891 Personal history of nicotine dependence; Z98.890 Other specified postprocedural states; Z88.1 Allergy status to other antibiotic agents; Z88.5 Allergy status to narcotic agent

== ENCOUNTER → 2025-07-18 | Outpatient (CLI) | payer MEDICAID ==
[2025-07-18 12:55] LABS: BASO # 0.0 10*3/uL (0.0-0.1); BASO % 0.5 % (0.0-1.0); EOS # 0.6 10*3/uL (0.0-0.4); EOS % 9.1 % (1.0-4.0); MEAN CELL VOLUME 92.1 fl (80.0-94.0); MEAN CORPUSCULAR HGB 30.0 pg (27.0-31.0); MEAN PLATELET VOLUME 9.9 fl (9.6-12.3); MONO # 0.9 10*3/uL (0.1-1.0); MONO % 14.3 % (3.0-9.0); NEUT # 3.4 10*3/uL (2.3-7.9); NEUT % 54.7 % (47.0-73.0); NUCLEATED RED BLOOD CELL 0.0 % (0.0-0.0); NUCLEATED RED BLOOD CELL 0.0 10*3/uL (0.0-0.0); PLATELET COUNT AUTOMATED 249 10*3/uL (130-400); RED CELL DISTRI WIDTH 11.8 % (0-14.5); RETICULOCYTE % 1.69 % (0.50-2.50)
[2025-07-18 13:41] LABS: BUN 7 mg/dl (9-23); GAMMA GLUTAMYL TRANSFERASE 76 U/L (0-73); LDL CHOLESTEROL 30 mg/dL (9-159); SGPT/ALT 14 U/L (5-49); T3 UPTAKE 30.2 % (22.4-36.7); THYROXINE (T4) TOTAL 7.9 ug/dl (4.5-10.9); VITAMIN D, 25-HYDROXY 79.5 ng/mL (30-100)
== END | disposition home or self-care (01) ==
LOC: LAB 12:11
PROVIDERS: ATTEND Family Medicine
DX: R79.89 Other specified abnormal findings of blood chemistry (principal); E78.5 Hyperlipidemia, unspecified; E55.9 Vitamin D deficiency, unspecified